=== PATIENT | female | born 1960 | race Two or more races ===

== ENCOUNTER 2016-08-07 23:20 | Inpatient (IN) | payer MEDICAID ==
[~2016-08-07] VITALS: Ht 160 cm; Wt 39.0 kg
--- NOTE | 2016-08-07 23:31 | NUR ---
PT A/OX4 PT C/O SOB AND DIFFICULTY BREATHING X 1 DAY BUT IS GETTING WORSE TONIGHT, PT IS UNDER GOING CHEMO AND HAS A PICC LINE ON HER RIGHT FOREARM, PT GOT 800CC OF FLUID DRAINED TODAY PER FAMILY PT ON MONITOR EKG DONE, IN ROOM, PT PLACED ADIEL NON REBREATHER PRIOR TO ARRIVAL BY EMS, FAMILY AT BEDSIDE, WILL CONTINUE TO MONITOR.
[2016-08-07] MEDS ORDERED: IV NS 0.9% 250 ML IV ONE (23:33)
[2016-08-07] MEDS ORDERED: IOHEXOL-350 100 ML VIAL IV ONE (23:33)
[2016-08-07] MEDS ORDERED: MULT1TAB73 PO (23:44)
[2016-08-07] MEDS ORDERED: DOCU-25 PO (23:44)
[2016-08-07] MEDS ORDERED: HYDR-3326 PO (23:44)
[2016-08-07] MEDS ORDERED: ZINC220C6 PO (23:44)
[2016-08-07] MEDS ORDERED: AMIN30LI27 PO (23:44)
[2016-08-07] MEDS ORDERED: IPRA0.2S49 NEB (23:44)
[2016-08-07] MEDS ORDERED: BISA-79 PR (23:44)
[2016-08-07] MEDS ORDERED: BIFI460C PO (23:44)
[2016-08-07] MEDS ORDERED: ASCO500T9 PO (23:44)
[2016-08-07] MEDS ORDERED: ACET-868 PO (23:44)
[2016-08-07] MEDS ORDERED: ANAS1TAB8 PO (23:44)
[2016-08-07] MEDS ORDERED: TRAM50TA2 PO (23:44)
[2016-08-07] MEDS ORDERED: ONDA8TAB6 PO (23:44)
[2016-08-07] MEDS ORDERED: MELA1TAB9 PO (23:44)
[2016-08-07] MEDS ORDERED: ENOX40DI SUBCUT (23:44)
[2016-08-07] MEDS ORDERED: BUSP5TAB3 PO (23:44)
[2016-08-07] MEDS ORDERED: METO-295 PO (23:44)
[2016-08-07] MEDS ORDERED: ALBU2.5V38 NEB (23:44)
[2016-08-07] MEDS ORDERED: MAGN400O6 PO (23:44)
[2016-08-07] MEDS ORDERED: POLY17PO4 PO (23:44)
[2016-08-07 23:53] LABS: BASOPHILS % (AUTO) 0.1 % (0.0-2.0); EOSINOPHILS % (AUTO) 0.1 % (0.0-6.0); HEMATOCRIT 35 % (33-45); HEMOGLOBIN 11.9 g/dL (11.5-14.8); LYMPHOCYTES # (AUTO) 0.3 /CMM (0.8-4.8); LYMPHOCYTES % (AUTO) 5.9 % (20.0-44.0); MEAN CORPUSCULAR HEMOGLOBIN 30 PG (26.0-33.0); MEAN CORPUSCULAR HGB CONC 34 g/dl (31.0-36.0); MEAN CORPUSCULAR VOLUME 87 fL (82-100); MONOCYTES # (AUTO) 0.2 /CMM (0.1-1.30); MONOCYTES % (AUTO) 3.8 % (2.0-12.0); NEUTROPHILS # (AUTO) 4.9 /CMM (1.8-8.9); NEUTROPHILS % (AUTO) 90.1 % (43.0-81.0); PLATELET COUNT (AUTO) 516 /CMM (150-450); RDW COEFFICIENT OF VARIATION 18.5 (11.5-15.0); RED BLOOD CELL COUNT(AUTO) 3.97 MIL/uL (4.0-5.2); WHITE BLOOD COUNT (AUTO) 5.5 K/uL (4.3-11.0)
[2016-08-08] VITALS (74 sets, daily range): BP systolic 75–188; BP diastolic 42–99
[2016-08-08 00:08] LABS: INR 0.91 (0.87-1.13); PROTHROMBIN TIME 9.7 SECS (9.5-12.7)
[2016-08-08 00:15] LABS: ALANINE AMINOTRANSFERASE 100 U/L (12-78); ALBUMIN 2.2 g/dL (3.4-5.0); ALKALINE PHOSPHATASE 473 U/L (46-116); ASPARTATE AMINOTRANSFERASE 61 U/L (15-37); B-TYPE NATRIURETIC PEPTIDE 158 PG/ML (0-125); BILIRUBIN,DIRECT 0.1 mg/dL (0.0-0.2); BILIRUBIN,TOTAL 0.2 mg/dL (0.2-1.0); CHLORIDE 94 mmol/L (98-107); CREATININE 0.2 mg/dL (0.6-1.3); GLUCOSE 107 mg/dL (74-106); POTASSIUM 3.9 mmol/L (3.5-5.1); SODIUM SERUM 133 mmol/L (136-145); TOTAL PROTEIN, SERUM 5.9 g/dL (6.4-8.2); UREA NITROGEN, BLOOD 14 mg/dL (7-18)
[2016-08-08 00:16] LABS: TROPONIN I < 0.017 ng/mL (0.00-0.056)
[2016-08-08 00:21] LABS: CALCIUM, SERUM 8.2 mg/dL (8.5-10.1); CARBON DIOXIDE 41 mmol/L (21-32)
[2016-08-08 00:49] LABS: BAND % (MANUAL) 6 % (0.0-5.0); LYMPHOCYTES % (MANUAL) 6 % (16-48); METAMYELOCYTES % 1 % (0-0); MONOCYTES % (MANUAL) 6 % (0-11.0); NEUTROPHILS % (MANUAL) 81 (42-76)
--- NOTE | 2016-08-08 01:15 | NUR ---
PT BACK FROM CT, PT STATES HER BREATHING IS GETTING WORSE, FAMILY AT BEDSIDE RT AT BEDSIDE AND MD AT BEDSIDE, BREATHING TREAMENT STARTED, WILL CONTINUE TO MONITOR.
--- NOTE | 2016-08-08 01:23 | NUR ---
CALLED RT FOR ABG.
--- NOTE | 2016-08-08 01:32 | NUR ---
JERMAIN DF CHART REVIEWED PT FOR JOSIAH ADMISSION.
--- NOTE | 2016-08-08 01:43 | NUR ---
PT STARTED ON BI-PAP PER MD ESPINOZA ORDERS WILL CONTINUE TO MONITOR.
[2016-08-08 01:46] LABS: ABG OXYGEN SATURATION 93.7 % (92.0-98.5); ABG PCO2 86.5 mmHg (35.0-45.0); ABG PH 7.261 (7.350-7.450); ABG PO2 80.8 mmHg (75.0-100.0); AaDO2 545.7 mmHg; COHb 1.1 % (0.5-1.5); MetHb 0.6 % (0.0-1.5); O2Hb 92.1 % (94.0-97.0); SITE, ABG Left Radial; VENT MODE, BG NRB
--- NOTE | 2016-08-08 01:48 | NUR ---
GIVEN BED BY WINE CONSULTANT. ICU 252
--- NOTE | 2016-08-08 02:14 | NUR ---
PANEL CALLED. DR. PAUL TO BE PAGED.
[2016-08-08] MEDS ORDERED: IV SET PRIMARY PUMP SET 1 EA INFUS.SET MC ONE ×6 (02:19→16:37)
[2016-08-08] MEDS ORDERED: PROPOFOL 100 ML IV ONE (02:19)
--- NOTE | 2016-08-08 02:30 | NUR ---
PT NOT ABLE TO TOLERATED BI-PAP, MD ESPINOZA INTUBATED PT, 22AT THE LIP AND 7 CROATIAN USED. RT AT BEDSIDE, WILL CONTINUE TO MONITOR.
[2016-08-08] MEDS ORDERED: IV NS 0.9% 500 ML IV ONE (02:44)
[2016-08-08] MEDS ORDERED: NOREPINEPHRINE 4 MG/4 ML AMPUL IV ONE ×2 (02:44→03:53)
[2016-08-08] MEDS ORDERED: IV SET PRIMARY 1 EA INFUS.SET MC ONE (02:48)
[2016-08-08] MEDS ORDERED: PIPERACILLIN /TAZOBACTAM 3.375 G VIAL IV ONE (02:49)
[2016-08-08] MEDS ORDERED: HYDROCODONE/APAP 5/325MG 1 EACH TABLET PO PRN (03:00)
[2016-08-08] MEDS ORDERED: ALBUTEROL FS 2.5 MG/0.5 ML VIAL.NEB NEB PRN (03:00)
[2016-08-08] MEDS ORDERED: IPRATROPIUM NEB FS 0.5 MG/2.5 ML AMPUL.NEB NEB PRN (03:00)
[2016-08-08] MEDS ORDERED: PIPERACILLIN /TAZOBACTAM 3.375 G in IV D5W 50 ML IV ONE (03:00)
[2016-08-08] MEDS ORDERED: ONDANSETRON HCL/PF 4 MG/2 ML VIAL IVP PRN (03:00)
[2016-08-08] MEDS ORDERED: MAGNESIUM HYDROXIDE 30 ML UDC PO PRN (03:00)
[2016-08-08] MEDS ORDERED: ZOLPIDEM TARTRATE 5 MG TABLET PO PRN (03:00)
[2016-08-08] MEDS ORDERED: NOREPINEPHRINE 8 MG in IV D5W 500 ML IV PRN ×2 (03:00→08:30)
[2016-08-08] MEDS ORDERED: ETOMIDATE 2 MG/ML VIAL IV ONE ×2 (03:00→03:30)
[2016-08-08] MEDS ORDERED: FEE EMEERGENCY 1 MIN EA MC ONE (03:00)
[2016-08-08] MEDS ORDERED: ENOXAPARIN SODIUM 40 MG/0.4 ML DISP.SYRIN SQ SCH (03:00)
[2016-08-08] MEDS ORDERED: ACETAMINOPHEN 325 MG TABLET PO PRN (03:00)
[2016-08-08] MEDS ORDERED: MAG HYDROX/AL HYDROX/SIMETH 30 ML UDC PO PRN (03:00)
[2016-08-08] MEDS ORDERED: VANCOMYCIN 1 GM in IV D5W 250 ML IV ONE (03:00)
[2016-08-08] MEDS ORDERED: LEVOFLOXACIN 750 MG /D5W 150ML 750 MG in PREMIX 1 EA IV SCH (03:00)
[2016-08-08] MEDS ORDERED: VANCOMYCIN 1 GM VIAL ONE (03:08)
[2016-08-08] MEDS ORDERED: IV D5W 250 ML IV ONE (03:09)
[2016-08-08] MEDS ORDERED: PROPOFOL 100 ML IV PRN (03:30)
[2016-08-08] MEDS ORDERED: ROCURONIUM BROMIDE 50 MG/5 ML IV ONE (03:30)
[2016-08-08] MEDS ORDERED: ENOXAPARIN SODIUM 40 MG/0.4 ML DISP.SYRIN SQ ONE (03:33)
[2016-08-08] MEDS ORDERED: IV NS 0.9% 1,000 ML ONE ×2 (03:41→07:47)
[2016-08-08] MEDS: IV NS 0.9% 1,000 ML IV PRN ×2 (03:46→11:58)
[2016-08-08] MEDS ORDERED: IV D5W 500 ML IV ONE (03:53)
[2016-08-08] MEDS ORDERED: LEVOFLOXACIN 750 MG /D5W 150ML 150 ML IV ONE (04:03)
[2016-08-08 04:26] LABS: ABG BASE EXCESS 9.5 mmol/L; ABG PCO2 60.7 mmHg (35.0-45.0); ABG PH 7.394 (7.350-7.450); ABG PO2 335.5 mmHg (75.0-100.0); AaDO2 316.8 mmHg; COHb 0.6 % (0.5-1.5); MetHb 0.9 % (0.0-1.5); O2Hb 97.5 % (94.0-97.0); PEEP,BG 5 cm H2O; SITE, ABG Right Radial
--- NOTE | 2016-08-08 04:30 | NUR ---
ABG DONE. RN NOTIFIED. TITRATED FIO2 TO 50%.
[2016-08-08 04:43] LABS: EOSINOPHILS % (AUTO) 0.1 % (0.0-6.0); HEMATOCRIT 30 % (33-45); HEMOGLOBIN 10.2 g/dL (11.5-14.8); LYMPHOCYTES # (AUTO) 0.2 /CMM (0.8-4.8); LYMPHOCYTES % (AUTO) 5.2 % (20.0-44.0); MEAN CORPUSCULAR HEMOGLOBIN 30 PG (26.0-33.0); MEAN CORPUSCULAR HGB CONC 34 g/dl (31.0-36.0); MEAN CORPUSCULAR VOLUME 87 fL (82-100); MONOCYTES # (AUTO) 0.2 /CMM (0.1-1.30); MONOCYTES % (AUTO) 4.2 % (2.0-12.0); NEUTROPHILS # (AUTO) 3.5 /CMM (1.8-8.9); NEUTROPHILS % (AUTO) 90.5 % (43.0-81.0); PLATELET COUNT (AUTO) 415 /CMM (150-450); RDW COEFFICIENT OF VARIATION 19.1 (11.5-15.0); RED BLOOD CELL COUNT(AUTO) 3.39 MIL/uL (4.0-5.2); WHITE BLOOD COUNT (AUTO) 3.9 K/uL (4.3-11.0)
[2016-08-08 05:05] LABS: ALBUMIN 1.7 g/dL (3.4-5.0); BILIRUBIN,TOTAL 0.3 mg/dL (0.2-1.0); CREATININE 0.4 mg/dL (0.6-1.3); MAGNESIUM 1.9 mg/dL (1.8-2.4); PHOSPHORUS 3.5 mg/dL (2.5-4.9); POTASSIUM 4.2 mmol/L (3.5-5.1); TOTAL PROTEIN, SERUM 4.8 g/dL (6.4-8.2)
[2016-08-08] MEDS ORDERED: MORPHINE SULFATE INJ 2 MG/ML DISP.SYRIN ONE (05:13)
[2016-08-08] MEDS: MORPHINE SULFATE INJ 2 MG/ML DISP.SYRIN IV PRN ×4 (05:17→23:19)
--- NOTE | 2016-08-08 05:38 | NUR ---
HISTORY FACULTY MEMBER. ADMISSION. RECEIVED THE PT FROM ER VIA [facility]. ORALLY INTUBATED. ETT 7,LIP 23CMS,AC 16,TV 532XHA5 50%, PEEP 5. SAT 98%PERFUSIONIST SHOWING S TACH. IV RT UPPER ARM PICC LINE IVF NS 100ML/H, LEVOPHED 15MCG/MIN,DIPRIVAN 40MCG/KG/M,IN FC PATENT. ORALLY OGT INSERTED. WOUND PICTURE TAKEN. AFEBRILE. ATTACHED TO THE CHART. LT CHEST DRAINAGE INTACT. TURN AND REPOSITION Q2H. WILL CONTINUE TO MONITOR VITALS..S/P INTUBATION XRAY DONE. ABG DONE. FIO2 DECREASED.
[2016-08-08] MEDS: PIPERACILLIN /TAZOBACTAM 3.375 G in IV D5W 100 ML IV SCH ×2 (06:00→12:01)
--- NOTE | 2016-08-08 06:27 | NUR ---
ZOSYN NOT GIVEN 0600. ER GIVEN AT 0300
[2016-08-08] MEDS: IPRATROPIUM NEB FS 0.5 MG/2.5 ML AMPUL.NEB NEB SCH ×3 (07:35→20:18)
[2016-08-08] MEDS: ALBUTEROL FS 2.5 MG/0.5 ML VIAL.NEB NEB SCH ×3 (07:35→20:18)
[2016-08-08] MEDS: ACETYLCYSTEINE 20% SOLN 800 MG/4 ML VIAL NEB SCH ×3 (07:35→23:04)
--- NOTE | 2016-08-08 07:40 | NUR ---
ICU/RN PT IS INTUBATED ON THE VENT AC MODE,FIO2-50%. SAT O2-99%.SEDATED ON DIPRIVAN.LOW BP.LEVOPHED IS ON.PT HAS T-100.8. NOTIFIED.OG TUBE CLAMPED./C DRAINING WITH YELLOW URINE.PT HAS LEFT SIDE PLEURX DRAIN CLAMPED.RIGHT UPPER ARM PICC LINE.LEFT BREAST WOUND COVERED WITH DRESSING.SACRUM WOUND.PT HAS METASTATIC BREAST CA.S/P CHEMOTHERAPY 08/07/16.LABS REVIEW. NOTIFIED.NEW ORDERS RECEIVED,
[2016-08-08] MEDS ORDERED: IV NS 0.9% 1,000 ML BAG IV ONE (07:45)
[2016-08-08] MEDS ORDERED: FEE PK DOSING 1 MIN EA MC ONE (08:00)
--- NOTE | 2016-08-08 08:15 | NUR ---
WOUND CARE CONSULT PATIENT UNSTABLE FOR FULL SKIN ASSESSMENT AT THIS TIME PER NURSING STAFF. SCHOOL SERVICES OFFICER REVIEWED NURSING DOCUMENTATION AND PHOTO IMAGES OF THE SKIN ISSUES PRESENT ON ADMIT. WILL MAKE TREATMENT RECOMMENDATIONS BASED ON PHOTO IMAGES. FOR THE REDNESS TO THE BILATERAL HEELS, CONTINUE OFF LOADING AND HEEL FLOATING. FOR THE PERINEAL/VAGINAL AND INNER THIGH REDNESS WITH MOISTURE ASSOCIATED EXCORIATIONS, RECOMMEND Z GUARD MOISTURE BARRIER OINTMENT CURRENTLY ORDERED, FOR THE LEFT CHEST SURGICAL WOUND RECOMMEND CLEANSE WITH NS, PAT DRY, COVER WITH XEROFORM GUAZE, THEN ABD PAD, NO TAPE ON THE SKIN, WITH DAILY DRESSING CHANGES, FOR THE SACRAL ULCER NOTED TO BE POA AND TO BE AT LEAST PARTIAL THICKNESS STAGE 2 (MAY BE STAGE 3) CLEANSE WITH NS PAT DRY, APPLY HYDROGEL TO THE WOUND, APPLY Z GUARD TO THE OUTSIDE EDGES FOR THE EXCORIATIONS, COVER WITH MEPILEX FOAM DRESSING DAILY AND PRN SOILING. RECOMMEND TURNING SCHED Q 2 HOURS PATIENT CONDITION PERMITS, 1ST STEP LOW AIRLOSS MATTRESS HAS BEEN ORDERED FOR TREATMENT AND SKIN MANAGEMENT. PATIENT CURRENTLY INTUBATED AND ON PRESSORS FOR BP SUPPORT PER ICU NURSE. PATIENT WITH CURRENT SIOBHAN AT 12.
[2016-08-08] MEDS: PROPOFOL 100 ML IV PRN ×3 (09:03→23:32)
[2016-08-08] MEDS: Z GUARD REMEDY 2 OZ OINT TP PRN (09:03)
[2016-08-08] MEDS: PANTOPRAZOLE 40 MG VIAL IV SCH (09:04)
[2016-08-08] MEDS: methylPREDNISolone SOD SUCC 40 MG/ML VIAL IV SCH ×3 (09:04→16:48)
--- NOTE | 2016-08-08 09:40 | NUR ---
ICU/RN DUE MEDS ARE GIVEN ORDERED.1,400 NS BOLUS GIVEN ORDERED.PT PLACED ON KCI MATRASS.FAMILY AT BEDSIDE.
[2016-08-08] MEDS ORDERED: ANAS1TAB8 PO (09:52)
[2016-08-08] MEDS: HYDROGEL DRESSING 90 GM TUBE TP PRN (11:59)
[2016-08-08] MEDS: HYDROGEL DRESSING 90 GM TUBE TP SCH (12:00)
[2016-08-08] MEDS ORDERED: SECONDARY IV SET 1 EA INFUS.SET MC ONE ×2 (12:14→14:24)
[2016-08-08 13:08] LABS: THYROID STIMULATING HORMONE 0.968 uIU/mL (0.358-3.74)
[2016-08-08 13:09] LABS: INR 1.04 (0.87-1.13); PROTHROMBIN TIME 11.1 SECS (9.5-12.7)
[2016-08-08 13:10] LABS: D-DIMER 0.51 mg/L(FEU (0.17-0.50)
[2016-08-08] MEDS: NOREPINEPHRINE 16 MG in IV D5W 500 ML IV PRN (14:17)
[2016-08-08] MEDS: VANCOMYCIN 0.75 GM in IV D5W 250 ML IV SCH (15:16)
--- NOTE | 2016-08-08 16:26 | NUR ---
ICU/FIELD MARKETING COORDINATOR DRESSING DONE ORDERED.SUCTION PROVIDED.REPOSITION OR COMFORT.
[2016-08-08] MEDS ORDERED: SODIUM POLYSTYRENE SULFONATE 15 G/60 ML BOTTLE ONE (16:35)
[2016-08-08] MEDS: PIPERACILLIN /TAZOBACTAM 3.375 G in IV D5W 50 ML IV SCH ×2 (16:49→23:20)
--- NOTE | 2016-08-08 18:30 | NUR ---
ICU/IRRIGATION FLUME LAYER DRESSING DONE ORDERED.PT IS SEDATED ON PROPOFOL.PM CARE PROVIDED.SUCTION PROVIDED.DUE MEDS ARE GIVEN ORDERED,REPOSITION FOR COMFORT.
[2016-08-08] MEDS: ENOXAPARIN SODIUM 40 MG/0.4 ML DISP.SYRIN SQ SCH (20:41)
--- NOTE | 2016-08-08 20:59 | NUR ---
WHOLESALE DIAMOND BROKER DF RECEIVED PT TO ROOM#253 PT INTUBATED TOLERATING CURRENT VENT SETTINGS. PT SEDATED ON DIPRIVAN AT 45MCG.PT RESPONDS TO LIGHT TACTILE STIMULI WITHDRAWS TO STIMULI.WEAKNESS NOTED TO BUE/BLE.SINUS TACHYCARDIA ON MONITOR RATE OF 112BPM BP OF 104/56 PT ON LEVOPHED GTT FOR BP SUPPORT GOAL TO MAINTAIN SBP ABOVE 90.OGT CLAMPED PLACEMENT VERIFIED.AUSTIN CATH WITH ADEQUATE URINE OUTPUT. PT WITH LEFT SIDED PLEURX DRAIN.PLEURX WITH 100ML DRAINAGE STRAW COLORED.PLEURX CLAMPED AFTER DRAINAGE. PT WITH BREATH SOUNDS RHONCHI THROUGHOUT DIMINISHED IN LOWER BASES. WOUNDS NOTED TO LEFT BREAST/SACRUM/DIDIER AREA, COVERED WITH DRESSINGS C/D/I.
--- NOTE | 2016-08-08 23:47 | NUR ---
ENGINEERING MECHANIC DF PT WITH FACIAL GRIMACING,MOANING ASSUME PAIN PRESENT FLACC SCORE OF 2 I ADMIN MORPHINE 2MG IVP.DIPRIVAN GTT @45MCG. LEVOPHED GTT @8MCG WITH A BP OF 101/80
[2016-08-09] VITALS (88 sets, daily range): BP systolic 80–156; BP diastolic 44–111
[2016-08-09] MEDS: ALBUTEROL FS 2.5 MG/0.5 ML VIAL.NEB NEB SCH ×4 (01:42→19:38)
[2016-08-09] MEDS: IPRATROPIUM NEB FS 0.5 MG/2.5 ML AMPUL.NEB NEB SCH ×4 (01:42→19:38)
[2016-08-09 01:57] LABS: APPEARANCE,URINE CLEAR (CLEAR); BILIRUBIN,URINE NEGATIVE (NEGATIVE); BLOOD, URINE 1+ Ery/uL (NEGATIVE); COLOR,URINE YELLOW (YELLOW); KETONES,URINE NEGATIVE (NEGATIVE); LEUKOCYTE ESTERASE ,URINE NEGATIVE (NEGATIVE); NITRITE, URINE NEGATIVE (NEGATIVE); PROTEIN,URINE NEGATIVE (NEGATIVE); UGLUCOSE NEGATIVE (NEGATIVE); UROBILINOGEN,URINE 0.2 EU/dL (0.2)
[2016-08-09 02:02] LABS: BACTERIA,URINE None seen /HPF (None Seen); RBC,URINE 0-2 /HPF (0-2); SQUAMOUS EPITHELIAL CELL,UR Rare /HPF (None Seen); WBC,URINE NONE SEEN /HPF (0-3)
[2016-08-09] MEDS: MORPHINE SULFATE INJ 2 MG/ML DISP.SYRIN IV PRN ×4 (02:28→17:21)
--- NOTE | 2016-08-09 02:30 | NUR ---
BRIM AND CROWN PRESSER DF PT PREMEDICATED PRIOR TO AM CARE.PT WITH METASTATIC CA PT EXPERIENCES PAIN WHEN MOVED AEB FACIAL GRIMACING,VS CHANGES. DIPRIVAN INCREASED TO 50MCG IV.
[2016-08-09] MEDS: VANCOMYCIN 0.75 GM in IV D5W 250 ML IV SCH ×3 (02:32→14:59)
--- NOTE | 2016-08-09 03:59 | NUR ---
TICKET PRINTER DF PT WITH EDEMA TO RIGHT HAND WITH RIGHT INDEX FINGER RING UNABLE TO REMOVE.CIRCULATION INTACT,SKIN COLOR WNL.RING MAY REQUIRE REMOVAL WITH CUTTING TOOL IN AM. [facility] ORDERS FOLLOWS: Instructions <08/09/16 FOLLOW UP REGARDING PT,S RIGHT INDEX FINGER PT HAS GOLD COLORED, BAND/RING PT WITH EDEMA UNABLE TO REMOVE BAND.CIRCULATION REMAINS IN, TACT.RING MAY REQUIRE CUTTING TO REMOVE IN AM.CONSULT WITH PT,S , AND OBTAIN RING CUTTING TOOL.>
[2016-08-09] MEDS: PROPOFOL 100 ML IV PRN ×3 (04:03→17:20)
--- NOTE | 2016-08-09 04:18 | NUR ---
BOAT LOADER HELPER DF PT BP OF 156/111 DECREASED LEVOPHED FROM 10MCG TO 7MCG.
[2016-08-09 04:58] LABS: CALCIUM, SERUM 8.5 mg/dL (8.5-10.1); CREATININE 0.3 mg/dL (0.6-1.3)
[2016-08-09] MEDS: PIPERACILLIN /TAZOBACTAM 3.375 G in IV D5W 50 ML IV SCH ×4 (05:06→23:34)
[2016-08-09 08:09] LABS: IMMUNOGLOBULIN A, SERUM 44 mg/dL (87-352); IMMUNOGLOBULIN G, SERUM 243 mg/dL (700-1600); IMMUNOGLOBULIN M, SERUM 38 mg/dL (26-217)
[2016-08-09] MEDS: PANTOPRAZOLE 40 MG VIAL IV SCH (08:21)
[2016-08-09] MEDS: methylPREDNISolone SOD SUCC 40 MG/ML VIAL IV SCH ×3 (08:22→17:21)
[2016-08-09] MEDS: HYDROGEL DRESSING 90 GM TUBE TP SCH (08:22)
--- NOTE | 2016-08-09 08:22 | NUR ---
ICU/RN - Notes Pt medicated with Morphine 2mg IVP as ordered, to ensure comfort as pt is intubated. Pt noted with facial grimacing and expresses that ET tube is uncomfortable. Will reassess pain accordingly.
[2016-08-09] MEDS: ACETYLCYSTEINE 20% SOLN 800 MG/4 ML VIAL NEB SCH ×3 (08:33→23:41)
--- NOTE | 2016-08-09 09:30 | NUR ---
ICU/RN - Notes Sedation vacation done per protocol. Pt alert and oriented, able to move all four extremities purposefully. Pt placed back on sedation as no plan for vent weaning, and pt states would like to be under sedation while being intubated.
[2016-08-09] MEDS ORDERED: IV SET PRIMARY PUMP SET 1 EA INFUS.SET MC ONE (09:46)
[2016-08-09 10:15] LABS: ABG BASE EXCESS 8.8 mmol/L; ABG OXYGEN SATURATION 98.1 % (92.0-98.5); ABG PCO2 50.4 mmHg (35.0-45.0); ABG PH 7.448 (7.350-7.450); ABG PO2 138.4 mmHg (75.0-100.0); AaDO2 125.1 mmHg; COHb 0.4 % (0.5-1.5); MetHb 0.9 % (0.0-1.5); O2Hb 96.8 % (94.0-97.0); PEEP,BG 5 cm H2O; SITE, ABG Right Radial; VT, ABG 450 mL
[2016-08-09] MEDS: IV NS 0.9% 1,000 ML IV PRN (14:01)
[2016-08-09] MEDS: NOREPINEPHRINE 16 MG in IV D5W 500 ML IV PRN (14:02)
[2016-08-09] MEDS: VANCOMYCIN 1 GM in IV D5W 250 ML IV SCH (15:00)
[2016-08-09] MEDS ORDERED: FIBERSOURCE HN 1,000 ML BOTTLE NG PRN (15:00)
[2016-08-09] MEDS: NUTREN PULMONARY 1,000 ML BAG GT PRN (17:21)
[2016-08-09] MEDS: MUPIROCIN OINT 2% 22 GM TUBE SCH ×3 (18:30→21:45)
[2016-08-09] MEDS: ENOXAPARIN SODIUM 40 MG/0.4 ML DISP.SYRIN SQ SCH (21:41)
[2016-08-10] VITALS (101 sets, daily range): BP systolic 78–143; BP diastolic 42–106
[2016-08-10] MEDS ORDERED: IV SET PRIMARY PUMP SET 1 EA INFUS.SET MC ONE ×3 (00:30→23:07)
--- NOTE | 2016-08-10 01:30 | NUR ---
HVAC SERVICE TECHNICIAN DF BP OF 143/92 LEVOPHED DECREASED TO 3MCG.PT MORE AWAKE SPONTANEOUS EYE OPENING,MOVING BUE/BLE LEFT ARM WEAKER THAN RIGHT ARM 2ND LEFT BREAST WOUND/CA.PT C/O PAIN I MEDICATED HER WITH MORPHINE 2MG IVP.PT COOPERATIVE FOLLOWING SIMPLE COMMANDS.VSS.NAD NOTED.TOLERATING TUBE FEEDING @30ML/HR.
[2016-08-10] MEDS: MORPHINE SULFATE INJ 2 MG/ML DISP.SYRIN IV PRN ×3 (01:39→14:04)
[2016-08-10] MEDS: PROPOFOL 100 ML IV PRN ×4 (01:59→19:31)
[2016-08-10] MEDS: ALBUTEROL FS 2.5 MG/0.5 ML VIAL.NEB NEB SCH ×4 (02:08→19:34)
[2016-08-10] MEDS: IPRATROPIUM NEB FS 0.5 MG/2.5 ML AMPUL.NEB NEB SCH ×4 (02:08→19:34)
[2016-08-10] MEDS: VANCOMYCIN 1 GM in IV D5W 250 ML IV SCH ×2 (03:45→14:04)
[2016-08-10] MEDS: IV NS 0.9% 1,000 ML IV PRN ×2 (05:04→19:33)
[2016-08-10 05:05] LABS: CALCIUM, SERUM 8.3 mg/dL (8.5-10.1); CREATININE 0.3 mg/dL (0.6-1.3); POTASSIUM 3.5 mmol/L (3.5-5.1)
[2016-08-10 05:23] LABS: HEMATOCRIT 27 % (33-45); HEMOGLOBIN 9.2 g/dL (11.5-14.8); LYMPHOCYTES # (AUTO) 0.9 /CMM (0.8-4.8); LYMPHOCYTES % (AUTO) 10.3 % (20.0-44.0); MEAN CORPUSCULAR HEMOGLOBIN 30 PG (26.0-33.0); MEAN CORPUSCULAR HGB CONC 34 g/dl (31.0-36.0); MEAN CORPUSCULAR VOLUME 88 fL (82-100); MONOCYTES # (AUTO) 0.3 /CMM (0.1-1.30); NEUTROPHILS # (AUTO) 7.8 /CMM (1.8-8.9); NEUTROPHILS % (AUTO) 86.7 % (43.0-81.0); PLATELET COUNT (AUTO) 410 /CMM (150-450); RDW COEFFICIENT OF VARIATION 19.4 (11.5-15.0); RED BLOOD CELL COUNT(AUTO) 3.07 MIL/uL (4.0-5.2)
[2016-08-10] MEDS: PIPERACILLIN /TAZOBACTAM 3.375 G in IV D5W 50 ML IV SCH ×4 (06:10→23:14)
[2016-08-10] MEDS: ACETYLCYSTEINE 20% SOLN 800 MG/4 ML VIAL NEB SCH ×3 (08:22→23:44)
[2016-08-10] MEDS: methylPREDNISolone SOD SUCC 40 MG/ML VIAL IV SCH ×3 (08:23→16:00)
[2016-08-10] MEDS: PANTOPRAZOLE 40 MG VIAL IV SCH (08:23)
[2016-08-10] MEDS: HYDROGEL DRESSING 90 GM TUBE TP SCH (08:24)
[2016-08-10] MEDS: MUPIROCIN OINT 2% 22 GM TUBE SCH ×2 (08:25→20:58)
--- NOTE | 2016-08-10 09:00 | NUR ---
ICU/RN - Notes Sedation vacation done per protocol. Pt alert and oriented, follows commands, able to move all four extremities purposefully. Pt placed back on sedation as no there is no plan for vent weaning, and pt states would like to be under sedation while being intubated.
[2016-08-10 09:34] LABS: ABG BASE EXCESS 8.7 mmol/L; ABG OXYGEN SATURATION 97.9 % (92.0-98.5); ABG PCO2 43.7 mmHg (35.0-45.0); ABG PH 7.494 (7.350-7.450); ABG PO2 141.1 mmHg (75.0-100.0); AaDO2 93.8 mmHg; COHb 0.5 % (0.5-1.5); MetHb 0.6 % (0.0-1.5); O2Hb 96.8 % (94.0-97.0); SITE, ABG Right Radial
--- NOTE | 2016-08-10 11:45 | NUR ---
ICU/RN - Notes Left pleural fluid (via PleurX bag) sent to pathology.
--- NOTE | 2016-08-10 12:25 | NUR ---
ICU/RN - Notes Respiratory specimen collected by RT Dwyer and sent to lab.
[2016-08-10] MEDS: NOREPINEPHRINE 16 MG in IV D5W 500 ML IV PRN (14:04)
[2016-08-10] MEDS ORDERED: SECONDARY IV SET 1 EA INFUS.SET MC ONE (14:10)
[2016-08-10] MEDS: LORAZEPAM INJ 2 MG/ML VIAL IV PRN (16:00)
[2016-08-10] MEDS: NUTREN PULMONARY 1,000 ML BAG GT PRN (16:54)
--- NOTE | 2016-08-10 17:35 | NUR ---
ICU/RN - Notes Pt manifests with anxiousness and tearful, requesting for something to calm her down. Diprivan titrated up to 50mcg/kg/min, but pt still unable to relax. Administered Ativan 0.5mg IVP as ordered for PRN anxiety. Will continue to monitor.
--- NOTE | 2016-08-10 20:42 | NUR ---
received pt from day shift, calmly sedated on diprivan at 50mcg, follows commands, SR, on the vent, lungs congested, non pitting edema all extremities, OG to feeding tolerates well, f/c good urine output, L pleurx draining, v/s stable, no pain, pt turned and repositioned.
[2016-08-10] MEDS: ENOXAPARIN SODIUM 40 MG/0.4 ML DISP.SYRIN SQ SCH (21:00)
[2016-08-11] VITALS (95 sets, daily range): BP systolic 70–158; BP diastolic 28–115
--- NOTE | 2016-08-11 | NUR ---
pt is resting in the bed, calmly sedated on diprivan at 50mcg, receiving levo at 1mcg, v/s stable, no pain, pt turned and repositioned q2hrs.
[2016-08-11] MEDS: ALBUTEROL FS 2.5 MG/0.5 ML VIAL.NEB NEB SCH (01:29)
[2016-08-11] MEDS: IPRATROPIUM NEB FS 0.5 MG/2.5 ML AMPUL.NEB NEB SCH (01:30)
[2016-08-11] MEDS: VANCOMYCIN 1 GM in IV D5W 250 ML IV SCH ×2 (02:12→15:25)
--- NOTE | 2016-08-11 04:15 | NUR ---
pt is resting in the bed, no acute distress overnight, sedated on diprivan at 50mcg, receiving levo at 1mcg, off of feeding since midnight for the procedure in AM, good urine output, v/s stable, no pain, pt cleaned, changed and repositioned q2hrs.
[2016-08-11] MEDS: MORPHINE SULFATE INJ 2 MG/ML DISP.SYRIN IV PRN ×2 (04:35→10:16)
[2016-08-11 05:07] LABS: CREATININE 0.2 mg/dL (0.6-1.3); POTASSIUM 3.3 mmol/L (3.5-5.1)
[2016-08-11] MEDS: PIPERACILLIN /TAZOBACTAM 3.375 G in IV D5W 50 ML IV SCH ×3 (05:29→17:06)
[2016-08-11] MEDS: PROPOFOL 100 ML IV PRN ×2 (06:23→12:18)
[2016-08-11] MEDS: ACETYLCYSTEINE 20% SOLN 800 MG/4 ML VIAL NEB SCH ×3 (07:24→23:15)
[2016-08-11] MEDS ORDERED: IV SET PRIMARY PUMP SET 1 EA INFUS.SET MC ONE ×2 (08:00→23:14)
--- NOTE | 2016-08-11 08:00 | NUR ---
ICU/RN PT IS INTUBATED ON THE VENT AC MODE.FIO2-40%.V/S STABLE,AFEBRILE.NO PAIN REPORTED AT THIS TIME.PT IS ON 50 MCG OF PROPOFOL,BUT AWAKE ,ALERT AND FOLLOWS COMMAND.PICC LINE ON THE RIGHT UPPER ARM IV INFUSING ORDERED.LEVOPHED STOP.F/C DRAINING WITH MEGAN URINE.WOUNDS COVERED WITH DRESSING.SUCTION PROVIDED.REPOSITION FOR COMFORT.LABS REVIEW. NOTIFIED.NEW ORDERS RECEIVED.
[2016-08-11 08:08] LABS: *SPE ALBUMIN 2.1 g/dL (2.9-4.4); *SPE ALPHA-1-GLOBULIN 0.2 g/dL (0.0-0.4); *SPE BETA GLOBULIN 0.6 g/dL (0.7-1.3); *SPE GLOBULIN, TOTAL 2.1 g/dL (2.2-3.9); *SPE M-SPIKE Not Observed g/dL (Not Observed); *SPE PROTEIN TOTAL 4.2 g/dL (6.0-8.5); *SPEGAMMA GLOBULIN 0.2 g/dL (0.4-1.8)
[2016-08-11] MEDS: methylPREDNISolone SOD SUCC 40 MG/ML VIAL IV SCH ×3 (08:12→17:05)
[2016-08-11] MEDS: IV NS 0.9% 1,000 ML IV PRN (08:12)
[2016-08-11] MEDS: PANTOPRAZOLE 40 MG VIAL IV SCH (08:12)
[2016-08-11] MEDS: FERROUS SULFATE (325 MG) 325 MG/TAB TABLET PO SCH ×2 (08:12→17:05)
[2016-08-11] MEDS: MUPIROCIN OINT 2% 22 GM TUBE SCH ×2 (08:13→21:43)
[2016-08-11] MEDS: Z GUARD REMEDY 2 OZ OINT TP PRN (08:14)
[2016-08-11] MEDS: HYDROGEL DRESSING 90 GM TUBE TP SCH (08:14)
--- NOTE | 2016-08-11 09:00 | NUR ---
ICU/RN DUE MEDS ARE GIVEN ORDERED.FAMILY AT BEDSIDE.
[2016-08-11] MEDS: POTASSIUM CL. PREMIX PERIPHER. 50 ML IV SCH ×2 (10:16→12:18)
[2016-08-11 13:12] LABS: INR 0.92 (0.87-1.13); PROTHROMBIN TIME 9.8 SECS (9.5-12.7)
[2016-08-11] MEDS: Potassium Chloride 40 MEQ in IV NS 0.9% 1,000 ML IV PRN (13:19)
[2016-08-11] MEDS ORDERED: IV NS 0.9% 250 ML BAG IV ONE (15:00)
[2016-08-11] MEDS ORDERED: MORPHINE SULFATE INJ 2 MG/ML DISP.SYRIN IV ONE (15:00)
--- NOTE | 2016-08-11 16:00 | NUR ---
ICU/RN PM CARE PROVIDED.WOUND DRESSING DONE ORDERED.PT S/P BRONCHOSCOPY TOLERATED WELL.CONTINUE MONITORING
--- NOTE | 2016-08-11 16:23 | NUR ---
RT BRONCH PERFORMED BY DR GUEVARA Addendum: 08/11/16 at 1623 by LISA CRESPO RT Amended: Links added.
[2016-08-11] MEDS: NUTREN PULMONARY 1,000 ML BAG GT PRN (17:05)
[2016-08-11] MEDS: NOREPINEPHRINE 16 MG in IV D5W 500 ML IV PRN (18:55)
--- NOTE | 2016-08-11 21:39 | NUR ---
PT INTUBATED ON VENT. PT IS AWAKE ALERT FOLLOWS COMMANDS. NO RESP DISTRESS NOTED. PT TOLERATING VENT SETTINGS. SX'D FOR SML AMT OF THIN WHITE SECRETIONS. VENT ALARMS SET AND AUDIBLE. SARINA BAIRD AT [facility]. WILL CONTINUE TO MONITOR. Addendum: 08/11/16 at 2141 by GUTIERREZ BHATIA RT Amended: Links added.
[2016-08-11] MEDS: ENOXAPARIN SODIUM 40 MG/0.4 ML DISP.SYRIN SQ SCH (21:44)
[2016-08-12] VITALS (84 sets, daily range): BP systolic 80–154; BP diastolic 36–107
[2016-08-12] MEDS: PIPERACILLIN /TAZOBACTAM 3.375 G in IV D5W 50 ML IV SCH ×4 (00:33→17:14)
[2016-08-12] MEDS: PROPOFOL 100 ML IV PRN ×4 (00:46→22:41)
[2016-08-12] MEDS: Potassium Chloride 40 MEQ in IV NS 0.9% 1,000 ML IV PRN ×2 (00:47→15:20)
[2016-08-12] MEDS: VANCOMYCIN 1 GM in IV D5W 250 ML IV SCH (02:28)
[2016-08-12 05:30] LABS: CREATININE 0.3 mg/dL (0.6-1.3); POTASSIUM 3.8 mmol/L (3.5-5.1)
[2016-08-12] MEDS: ACETYLCYSTEINE 20% SOLN 800 MG/4 ML VIAL NEB SCH ×3 (07:15→23:05)
--- NOTE | 2016-08-12 08:17 | NUR ---
PT. PLACED ON SIMV MODE ON VENT AND WEANING STARTED . ALARMS ARE ADJUSTED AND PT. MARIALUISA. WELL. CONTINUE FOR MONITORING AND AMBU BAG REMAIN AT THE BEDSIDE. Addendum: 08/12/16 at 0818 by POLINA GLORIA RT Amended: Links added.
[2016-08-12] MEDS: FERROUS SULFATE (325 MG) 325 MG/TAB TABLET PO SCH ×2 (08:19→16:48)
[2016-08-12] MEDS: MUPIROCIN OINT 2% 22 GM TUBE SCH ×2 (08:19→20:53)
[2016-08-12] MEDS: PANTOPRAZOLE 40 MG VIAL IV SCH (08:19)
[2016-08-12] MEDS: methylPREDNISolone SOD SUCC 40 MG/ML VIAL IV SCH ×3 (08:19→16:48)
[2016-08-12] MEDS: HYDROGEL DRESSING 90 GM TUBE TP SCH (08:20)
[2016-08-12 09:34] LABS: ABG BASE EXCESS 3.6 mmol/L; ABG OXYGEN SATURATION 94.8 % (92.0-98.5); ABG PCO2 54.9 mmHg (35.0-45.0); ABG PH 7.356 (7.350-7.450); AaDO2 138.1 mmHg; MetHb 0.9 % (0.0-1.5); PEEP,BG 5 cm H2O; SITE, ABG Left Radial; VENT MODE, BG SIM PS 12
--- NOTE | 2016-08-12 09:59 | NUR ---
HORSE RANCHER NOTE 0720: Received patient on Diprivan, patient awake, calm and cooperative, A/Ox3. With ETT to vent, tolerated settings at this time. With OGT intact, feeding tolerated, no residuals noted. With Cabrera cath intact, noted with minimal, yellow urine drained to BSD. With RENO PICC intact, on on Levo @ 1mcg, will titrate as ordered. 0800: Turned off Diprivan and explained re: weaning process, verbalized understanding. 0820: RT placed on SIMV mode. 0900: S/E by Dr. Hubbard, no specimen from bronch sent from yesterday, aware. 0915: S/E by Dr. Randle, made aware for the POC. at bedside, verbalized understanding re: POC. 45: ABG done, aware, with order to do another ABG in an hour, made RT aware.
--- NOTE | 2016-08-12 10:45 | NUR ---
HIGHWAY MAINTENANCE TECHNICIAN NOTE Noted with increased WOB, RR 38-40, Dr. Randle aware. Placed patient back on AC mode and Diprivan @ 40. Cleaned patient, noted with BM.
--- NOTE | 2016-08-12 12:20 | NUR ---
RESEARCH NURSE PRACTITIONER NOTE Patient back from CT, patient tolerated transfer. VSS at this time. Patient resting.
[2016-08-12] MEDS ORDERED: IV SET PRIMARY PUMP SET 1 EA INFUS.SET MC ONE ×2 (15:15→22:36)
--- NOTE | 2016-08-12 15:45 | NUR ---
BRICK OFF BEARER NOTE S/E by Femi HOISTING PILE DRIVING ENGINEER, spoke with Dr. Randle, aware for the plan of right chest tube, Dr. Randle called Dr. Peterson.
[2016-08-12] MEDS: VANCOMYCIN 0.75 GM in IV D5W 250 ML IV SCH ×2 (16:19→22:40)
[2016-08-12] MEDS: PROSOURCE / PROSTAT (PYXIS) 30 ML UDC GT SCH (16:20)
--- NOTE | 2016-08-12 19:30 | NUR ---
RN INITIAL NOTES RECEIVED PT AWAKE ON BED, WAS AT BEDSIDE. A/O X3, ABLE TO WRITE ON PAPER FOR COMMUNICATION; ON DIPRIVAN DRIP 35MCG/KG/MIN FOR LIGHT SEDATION. ON VENT AC 16, TV 450, 40% FIO2, PEEP 5, ETT 7.0/23@LIP, SATURATING WELL. CURRENTLY SR ON THE MONITOR, HR 70'S. [place] CATH INTACT. LEFT CHEST PLEURAX NOTED WITH SEROUS DRAINAGE. ON OGT FEEDING OF NUTREN @ 30MLS/HR, NO RESIDUALS, TOLERATING WELL. RIGHT UPPER ARM PICC FLUSHED AND PATENT, NO S/S OF INFILTRATION/INFECTION, DRESSING CDI. BED LOW AND LOCKED, SIDERAILS UP, CALL LIGHT WITHIN REACH. WILL MONITOR
[2016-08-12] MEDS: ENOXAPARIN SODIUM 40 MG/0.4 ML DISP.SYRIN SQ SCH (20:52)
--- NOTE | 2016-08-12 20:55 | NUR ---
RN NOTES HELD THE SCHEDULED ENOXAPARIN 40MG SQ FOR 2100 BECAUSE PATIENT MIGHT HAVE A POSSIBLE RIGHT LUNG CHEST TUBE PLACEMENT TOMORROW WITH DR. BARNARD
[2016-08-12] MEDS ORDERED: SECONDARY IV SET 1 EA INFUS.SET MC ONE (22:40)
[2016-08-13] VITALS (57 sets, daily range): BP systolic 79–168; BP diastolic 35–112
[2016-08-13] MEDS ORDERED: SECONDARY IV SET 1 EA INFUS.SET MC ONE (00:37)
[2016-08-13] MEDS ORDERED: IV SET PRIMARY PUMP SET 1 EA INFUS.SET MC ONE ×4 (00:37→20:00)
[2016-08-13] MEDS: PIPERACILLIN /TAZOBACTAM 3.375 G in IV D5W 50 ML IV SCH ×5 (00:44→23:20)
[2016-08-13] MEDS: Potassium Chloride 40 MEQ in IV NS 0.9% 1,000 ML IV PRN ×2 (00:44→14:51)
[2016-08-13 04:41] LABS: BASOPHILS % (AUTO) 0.2 % (0.0-2.0); HEMATOCRIT 25 % (33-45); HEMOGLOBIN 8.5 g/dL (11.5-14.8); LYMPHOCYTES # (AUTO) 0.6 /CMM (0.8-4.8); LYMPHOCYTES % (AUTO) 7.3 % (20.0-44.0); MEAN CORPUSCULAR HEMOGLOBIN 30 PG (26.0-33.0); MEAN CORPUSCULAR HGB CONC 34 g/dl (31.0-36.0); MEAN CORPUSCULAR VOLUME 88 fL (82-100); MONOCYTES # (AUTO) 0.3 /CMM (0.1-1.30); NEUTROPHILS # (AUTO) 7.8 /CMM (1.8-8.9); NEUTROPHILS % (AUTO) 89.5 % (43.0-81.0); PLATELET COUNT (AUTO) 307 /CMM (150-450); RDW COEFFICIENT OF VARIATION 19.2 (11.5-15.0); RED BLOOD CELL COUNT(AUTO) 2.84 MIL/uL (4.0-5.2); WHITE BLOOD COUNT (AUTO) 8.8 K/uL (4.3-11.0)
[2016-08-13 04:56] LABS: CALCIUM, SERUM 7.9 mg/dL (8.5-10.1); CREATININE 0.2 mg/dL (0.6-1.3); POTASSIUM 4.1 mmol/L (3.5-5.1)
--- NOTE | 2016-08-13 06:30 | NUR ---
RN CLOSING NOTES PT REMAINS STABLE OF THE MOMENT. ALL DUE MEDS GIVEN, AM CARE PROVIDED. WILL ENDORSE CONTINUITY OF CARE TO AM RN
[2016-08-13] MEDS: VANCOMYCIN 0.75 GM in IV D5W 250 ML IV SCH ×3 (06:36→22:05)
--- NOTE | 2016-08-13 06:50 | NUR ---
RN NOTES DR BARNARD IN THE UNIT TO ASSESS THE PATIENT FOR THE NEED FOR RIGHT CHEST TUBE INSERTION. NOTIFIED THE MD THAT WILL BE HERE AT 8AM TO SIGN FOR THE CONSENT. WILL ALSO NOTIFY AM RN
--- NOTE | 2016-08-13 07:10 | NUR ---
ICU INITIAL NOTES RECEIVED REPORT FROM PM RN, PT IS AWAKE, A/O X3, ABLE TO MAKE NEEDS KNOWN, WRITES ON PAPER FOR COMMUNICATION, PT IS ON BEDSIDE MONITOR SHOWING SR IN 80'S, NO C/O OF CHEST PAIN OR DISCOMFORT AT THIS TIME, PT HAS RENO PICC, RUNNING DIPRIVAN @35MCG/MIN, K+ CHLORIDE 40MEQ NS@100ML/HR,C/D/I/PATENT, FLUSHING WELL, NO S/S OF INFECTION/ INFILTRATION NOTED AT THIS TIME, PT IS ON [facility] VENT SETTINGS AC 16, TV 450, 40% FIO2, PEEP 5, ETT 7.0/23@LIP, SATURATING WELL, NO RESP.DISTRESS OR SOB NOTED AT THIS TIME, PT HAS F/C DRAINING WELL TO GRAVITY, LEFT CHEST PLEURAX NOTED WITH SEROUS DRAINAGE. PT HAS OGT FEEDING NUTREN @ 30MLS/HR, NO RESIDUALS NOTED, TOLERATING WELL. ALL SAFETY MEASURES IN PLACE AT ALL TIMES, CALL LIGHT WITHIN EASY REACH, ISOLATION PRECAUTIONS OBSERVED AT ALL TIMES, ALL NEEDS MET AT THIS TIME, WILL MONITOR PT CLOSELY FOR CHANGES
[2016-08-13] MEDS: PROPOFOL 100 ML IV PRN ×3 (07:16→20:07)
[2016-08-13] MEDS: ACETYLCYSTEINE 20% SOLN 800 MG/4 ML VIAL NEB SCH ×3 (07:44→22:37)
--- NOTE | 2016-08-13 09:00 | NUR ---
SEDATION VACATION: DIPRIVAN STOPPED, PT IS AWAKE, ALERT, ABLE TO FOLLOW COMMANDS, ABLE TO MOVE ALL EXTREMITIES, USES PEN AND PAPER TO COMMUNICATE, DIPRIVAN TURNED BACK ON @ 35MCG/MIN FOR COMFORT, AT BEDSIDE
[2016-08-13] MEDS: PROSOURCE / PROSTAT (PYXIS) 30 ML UDC GT SCH ×2 (09:30→18:09)
[2016-08-13] MEDS: FERROUS SULFATE (325 MG) 325 MG/TAB TABLET PO SCH ×2 (09:30→18:09)
[2016-08-13] MEDS: PANTOPRAZOLE 40 MG VIAL IV SCH (09:30)
[2016-08-13] MEDS: methylPREDNISolone SOD SUCC 40 MG/ML VIAL IV SCH ×3 (09:30→18:09)
[2016-08-13] MEDS: MUPIROCIN OINT 2% 22 GM TUBE SCH ×2 (09:31→20:10)
[2016-08-13] MEDS: HYDROGEL DRESSING 90 GM TUBE TP SCH (09:31)
[2016-08-13] MEDS: Z GUARD REMEDY 2 OZ OINT TP PRN (09:31)
--- NOTE | 2016-08-13 11:08 | NUR ---
ICU NOTES EXPRESSED TO ME THAT HE WANTS PT TRANSFER TO [facility] WHERE HE HAS A ER DOCTOR THERE, NOTIFIED CASE MANAGEMENT AND MD, WORKING ON TRANSFERRING PT ONCE MEDICALLY STABLE
--- NOTE | 2016-08-13 12:17 | NUR ---
ICU NOTES ATTAINED CONSENT FROM LOLITA TO RIGHT LUNG CHEST TUBE PLACEMENT, ALL QUESTIONS AND CONCERNS ANSWERED, MATT PAL AT BEDSIDE, LIFT ELECTRICIAN AWARE OF ALL LABS AND RESULTS, ALL NEW ORDERS ACK AND CARRIED OUT.
[2016-08-13] MEDS: NUTREN PULMONARY 1,000 ML BAG GT PRN (15:45)
[2016-08-13] MEDS ORDERED: MORPHINE SULFATE INJ 4 MG/ML DISP.SYRIN ONE (16:09)
[2016-08-13] MEDS ORDERED: MORPHINE SULFATE INJ 4 MG/ML DISP.SYRIN IV PRN (16:30)
--- NOTE | 2016-08-13 16:30 | NUR ---
ICU NOTES AT BEDSIDE, PT PREPPED FOR CHEST TUBE, ORDERED MORPHINE 4 MG IVP ONCE, ADMINISTERED THE MEDICATION, PT TOLERATE WELL, CHEST TUBE INSERTED, VVS, PT STATES EASIER TO BREATHE, CXR ORDERED, PT CLEAN AND DRY, ATTACHED TO CONT. SUCTION, 2L BLOOD FLUID DRAINAGE
--- NOTE | 2016-08-13 19:00 | NUR ---
ICU NOTES PAGED DR. BARNARD REGARDING CXR RESULTS, RETURNED CALL AND WAS NOTIFIED OF CXR RESULTS, INFORM HIM PT HAS 30% PNEUMOTHORAX, MD AWARE AND NOTIFIED STAFF NO FURTHER ACTION IS REQUIRE AND CLOSELY MONITOR PT
--- NOTE | 2016-08-13 19:30 | NUR ---
ICU NOTES CHEST TUBE FLUID COLLECT AND SENT TO LAB
[2016-08-13] MEDS: ENOXAPARIN SODIUM 40 MG/0.4 ML DISP.SYRIN SQ SCH (20:07)
[2016-08-14] VITALS (44 sets, daily range): BP systolic 88–141; BP diastolic 42–79
--- NOTE | 2016-08-14 02:00 | NUR ---
X RAY TECHNICIAN : BED BATH GIVEN , SKIN CARE DONE , LOTION APPLIED AND PT TOLERATED WELL. NO BM , CT DRESSING REINFORCED . WOUND CARE DONE.
--- NOTE | 2016-08-14 03:15 | NUR ---
REPORT GIVEN TO MIKAYLA FOR CONTINUATION OF CARE.
[2016-08-14] MEDS: PROPOFOL 100 ML IV PRN (04:22)
[2016-08-14 04:43] LABS: BASOPHILS # (AUTO) 0.2 /CMM (0.0-0.2); BASOPHILS % (AUTO) 1.5 % (0.0-2.0); EOSINOPHILS % (AUTO) 0.1 % (0.0-6.0); HEMATOCRIT 28 % (33-45); HEMOGLOBIN 9.4 g/dL (11.5-14.8); LYMPHOCYTES # (AUTO) 0.6 /CMM (0.8-4.8); LYMPHOCYTES % (AUTO) 6.7 % (20.0-44.0); MEAN CORPUSCULAR HEMOGLOBIN 30 PG (26.0-33.0); MEAN CORPUSCULAR HGB CONC 34 g/dl (31.0-36.0); MEAN CORPUSCULAR VOLUME 88 fL (82-100); MONOCYTES # (AUTO) 0.3 /CMM (0.1-1.30); MONOCYTES % (AUTO) 3.1 % (2.0-12.0); NEUTROPHILS # (AUTO) 8.6 /CMM (1.8-8.9); NEUTROPHILS % (AUTO) 88.6 % (43.0-81.0); PLATELET COUNT (AUTO) 327 /CMM (150-450); RDW COEFFICIENT OF VARIATION 18.9 (11.5-15.0); RED BLOOD CELL COUNT(AUTO) 3.16 MIL/uL (4.0-5.2); WHITE BLOOD COUNT (AUTO) 9.7 K/uL (4.3-11.0)
[2016-08-14 04:57] LABS: CALCIUM, SERUM 7.7 mg/dL (8.5-10.1); CREATININE 0.2 mg/dL (0.6-1.3); POTASSIUM 4.2 mmol/L (3.5-5.1)
[2016-08-14] MEDS: PIPERACILLIN /TAZOBACTAM 3.375 G in IV D5W 50 ML IV SCH ×4 (05:41→23:25)
[2016-08-14] MEDS: Potassium Chloride 40 MEQ in IV NS 0.9% 1,000 ML IV PRN ×2 (05:56→18:21)
[2016-08-14] MEDS: VANCOMYCIN 0.75 GM in IV D5W 250 ML IV SCH ×3 (06:23→23:25)
[2016-08-14] MEDS ORDERED: IV SET PRIMARY PUMP SET 1 EA INFUS.SET MC ONE (07:59)
[2016-08-14] MEDS: PANTOPRAZOLE 40 MG VIAL IV SCH (08:05)
[2016-08-14] MEDS: methylPREDNISolone SOD SUCC 40 MG/ML VIAL IV SCH ×3 (08:05→16:01)
[2016-08-14] MEDS: PROSOURCE / PROSTAT (PYXIS) 30 ML UDC GT SCH ×2 (08:05→16:02)
[2016-08-14] MEDS: FERROUS SULFATE (325 MG) 325 MG/TAB TABLET PO SCH ×2 (08:05→16:01)
[2016-08-14] MEDS: HYDROGEL DRESSING 90 GM TUBE TP SCH (08:06)
[2016-08-14] MEDS: ACETYLCYSTEINE 20% SOLN 800 MG/4 ML VIAL NEB SCH (08:08)
[2016-08-14] MEDS: MUPIROCIN OINT 2% 22 GM TUBE SCH ×2 (08:09→22:06)
--- NOTE | 2016-08-14 09:45 | NUR ---
ICU/RN - Notes Diprivan titrated down, for SIMV weaning trials. Pt awake and alert, able to move all extremities purposefully with left arm weakness. Explained procedure to pt, nods head understanding.
[2016-08-14 11:43] LABS: ABG OXYGEN SATURATION 97.3 % (92.0-98.5); ABG PCO2 48.3 mmHg (35.0-45.0); ABG PH 7.364 (7.350-7.450); ABG PO2 111.3 mmHg (75.0-100.0); AaDO2 118.4 mmHg; COHb 0.8 % (0.5-1.5); O2Hb 95.5 % (94.0-97.0); PEEP,BG 5 cm H2O; SITE, ABG Right Radial
--- NOTE | 2016-08-14 12:00 | NUR ---
PT EXTUBATED PER DR. GUEVARA ORDERS. PT IS AWAKE AND ALERT, FOLLOWING COMMANDS, ABG DONE. EXTUBATION DONE BY POLICY AND PROCEDURES. NO RESP. DISTRESS NOTED POST EXTUBATION, NO STRIDOR PRESENT. PLACED ON 6LPM NASAL CANNULA. WILL TITRATE FIO2 TO KEEP SATS WNL.
--- NOTE | 2016-08-14 12:05 | NUR ---
ICU/RN - Notes Pt extubated by RT as ordered by Dr Randle. Tolerated procedure well. Placed on nasal cannula O2 6lpm, tolerating well. No s/s of respiratory distress or increase work of breathing.
--- NOTE | 2016-08-14 14:45 | NUR ---
ICU/RN - Notes Pt tolerated pureed diet well, no s/s of aspiration noted.
--- NOTE | 2016-08-14 17:41 | NUR ---
ICU/RN - Notes Report called to JERMAIN Florence for continuity of care.
--- NOTE | 2016-08-14 18:38 | NUR ---
TRANSIT WORKER NOTE 1809: Received patient from ICU to ICUov, A/Ox3. on 2LPM of O2 via NC tolerated, SP extubation today. No any respiratory distress noted. With right chest tube intact, connected to 20mmHg continuous suction draining serosanguineous drainage and left chest pleurex draining clear yellow drainage. No c/o discomfort at this time. Accompanied by . RENO PICC intact, IVF infusing well. Cabrera catheter intact, noted with yellow urine drained to BSD. SR 90's on the monitor. 1837: No any significant changes noted at this time. Kept clean, warm and dry. Needs attended. Still eating dinner at this time. Will endorse to next shift.
--- NOTE | 2016-08-14 19:15 | NUR ---
BRUSH CLEARING LABORER NOTE RECEIVED PATIENT AWAKE AND ORIENTED X4. ON 4LPM OF O2 VIA NC, RESPIRATION IS EVEN AND UNLABORED, NO DISTRESS NOTED, DENIES ANY DISCOMFORT AND SOB. MINIMAL TO NO SECRETIONS NOTED, POST EXTUBATION EARLIER IN THE DAY, WILL MONITOR CLOSELY. SR AT 90s. WITH LEFT PLEUREX, INTACT AND DRAINING WELL WITH SEROUS DRAINAGE, NO LEAKAGE NOTED. R CHEST TUBE IN PLACE, ON CONTINUOUS SUCTION AT 20mmHg WITH SEROSANGUINEOUS DRAINAGE. F/C INTACT, CLEAR YELLOW URINE. RENO PICC LINE FLUSHED AND PATENT, WITH GOOD BLOOD RETURN, IVF OF NS + 40mEq KCL AT 100CC/HR INFUSING ORDERED. PATIENT'S NEEDS ANTICIPATED AND MET. SAFETY AND COMFORT ENSURED. BED IN LOW AND LOCKED POSITIN. HOB ELEVATED TOLERATED. WILL MONITOR CLOSELY.
[2016-08-14] MEDS: ENOXAPARIN SODIUM 40 MG/0.4 ML DISP.SYRIN SQ SCH (22:07)
--- NOTE | 2016-08-14 23:00 | NUR ---
RN NOTES PATIENT CARE TRANSFERRED TO JERMAIN MORALES. ENDORSED ACCORDINGLY. PATIENT WITH NO ACUTE DISTRESS. NEEDS ANTICIPATED AND MET. CALL LIGHT IN REACH.
--- NOTE | 2016-08-14 23:49 | NUR ---
ICU OVERFLOW RN NOTES RECEIVED PT IN STABLE STATE. ON O2 VIA NC AT 4 LPM, MARIALUISA WELL. TELE READS SR IN 80-90s. RUNNING NS WITH KCL AT 100 ML/HR. PICC AT [facility], DRESSING INTACT. [place] CATH IN PLACE. LEFT UPPER CHEST TUBE, DRAINING WELL. RIGHT CHEST PLEURX DRAINING WELL. ON KCI, HOB ELEVATED, TURNED AND REPOSITIONED. PT DENIES PAIN AT THIS TIME.
[2016-08-15] VITALS (18 sets, daily range): BP systolic 110–151; BP diastolic 63–95
[2016-08-15] MEDS: PIPERACILLIN /TAZOBACTAM 3.375 G in IV D5W 50 ML IV SCH ×3 (05:58→17:38)
[2016-08-15] MEDS: Potassium Chloride 40 MEQ in IV NS 0.9% 1,000 ML IV PRN ×2 (05:58→14:50)
[2016-08-15] MEDS: VANCOMYCIN 0.75 GM in IV D5W 250 ML IV SCH ×3 (06:04→22:00)
[2016-08-15 07:15] LABS: BASOPHILS % (AUTO) 0.2 % (0.0-2.0); EOSINOPHILS % (AUTO) 0.1 % (0.0-6.0); HEMATOCRIT 31 % (33-45); HEMOGLOBIN 10.6 g/dL (11.5-14.8); LYMPHOCYTES # (AUTO) 0.8 /CMM (0.8-4.8); LYMPHOCYTES % (AUTO) 5.7 % (20.0-44.0); MEAN CORPUSCULAR HEMOGLOBIN 30 PG (26.0-33.0); MEAN CORPUSCULAR HGB CONC 34 g/dl (31.0-36.0); MEAN CORPUSCULAR VOLUME 89 fL (82-100); MONOCYTES # (AUTO) 0.7 /CMM (0.1-1.30); MONOCYTES % (AUTO) 4.9 % (2.0-12.0); NEUTROPHILS # (AUTO) 12.8 /CMM (1.8-8.9); NEUTROPHILS % (AUTO) 89.1 % (43.0-81.0); PLATELET COUNT (AUTO) 429 /CMM (150-450); RED BLOOD CELL COUNT(AUTO) 3.49 MIL/uL (4.0-5.2); WHITE BLOOD COUNT (AUTO) 14.3 K/uL (4.3-11.0)
[2016-08-15 07:17] LABS: CREATININE 0.2 mg/dL (0.6-1.3); POTASSIUM 4.2 mmol/L (3.5-5.1)
--- NOTE | 2016-08-15 07:47 | NUR ---
INITIAL ICU OVERFLOW NOTE RCVD PT AWAKE AND ALERT, SHOWING NO S/O DISTRESS OR C/O PAIN, SR ON TELE, GOOD SATURATION ON 4L VIA NC. [place]IN DRAINING YELLOW URINE. LEFT CHEST PLEURX DRAINING PALE YELLOW FLUID. RIGHT CHEST TUBE DRESSING C/D/I DRAINING SEROSANGUINEOUS FLUID. RENO PICC C/D/I/PATENT. NO S/O INFILTRATION OR PHLEBITIS OBSERVED. IVF INFUSING. WILL CONTINUE TO MONITOR PT FOR SAFETY AND COMFORT. CALL LIGHT WITHIN REACH. BED IN LOW AND LOCKED POSITION.
--- NOTE | 2016-08-15 08:11 | NUR ---
MUSIC PROMOTER NOTE PER PT'S REQUEST DIET CHANGED TO PUREED, PT'S AT BEDSIDE MULTIPLE QUESTIONS ANSWERED.
[2016-08-15] MEDS: PROSOURCE / PROSTAT (PYXIS) 30 ML UDC GT SCH ×2 (08:21→17:38)
[2016-08-15] MEDS: methylPREDNISolone SOD SUCC 40 MG/ML VIAL IV SCH ×3 (08:21→17:38)
[2016-08-15] MEDS: FERROUS SULFATE (325 MG) 325 MG/TAB TABLET PO SCH ×2 (08:21→17:38)
[2016-08-15] MEDS: PANTOPRAZOLE 40 MG VIAL IV SCH (08:21)
[2016-08-15] MEDS: HYDROGEL DRESSING 90 GM TUBE TP SCH (08:23)
[2016-08-15] MEDS: MUPIROCIN OINT 2% 22 GM TUBE SCH ×2 (08:23→21:50)
--- NOTE | 2016-08-15 14:28 | NUR ---
ICU OVERFLOW NOTE SPOKE TO VICTOR HUGO GUTIERREZ INFORMED HIM OF PT'S WISH TO PURSUE PLEURX ON THE RIGHT SIDE, HE STATES THAT DR. BARNARD IS AWARE AND MIGHT PERFORM PROCEDURE TOMORROW. HE CONTACTED DR. ROSE REGARDING + C.DIF RESULTS. WILL CONTINUE TO MONITOR PT.
[2016-08-15] MEDS: BOOST PLUS FOOD-CHOCLATE 237 ML BOX PO SCH ×2 (14:50→17:37)
[2016-08-15] MEDS: Z GUARD REMEDY 2 OZ OINT TP PRN (17:37)
[2016-08-15] MEDS: VANCOMYCIN HCL 125 MG/2.5 ML ORAL.SUSP PO SCH (17:38)
--- NOTE | 2016-08-15 19:12 | NUR ---
ENDING JOSIAH RN NOTE PT REMAINS STABLE, ALL NEEDS MET, FAMILY AT BEDSIDE. PT'S CARE ENDORSED TO GEOLOGY TECHNICIAN RN FOR CONTINUITY OF CARE.
--- NOTE | 2016-08-15 19:20 | NUR ---
RN INITIAL NOTES RECEIVED PATIENT WITH AT BEDSIDE, ANSWERED QUESTIONS, UPDATED WITH PLAN OF CARE. PATIENT AT 4LPM OF O2 VIA NC, RESPIRATION IS EVEN AND UNLABORED, MINIMAL SOB NOTED WITH EXERTION AND WITH TALKING, RELIEVED WITH REST, SATURATING WELL. SR ON TELE, HR AT 90s. RENO PICC LINE FLUSHED AND PATENT, IVF INFUSING ORDERED. WITH F/C, INTACT AND DRAINING WELL WITH CLEAR, YELLOW URINE. L CHEST PLEURX IN PLACE, DRAINING WITH PALE YELLOW FLUID. R CHEST TUBE IN PLACE, DRAINING WITH SEROSANGUINEOUS FLUID. PATIENT'S NEEDS ANTICIPATED AND MET. SAFETY AND COMFORT ENSURED. BED IN LOW AND LOCKED POSITION. CALL LIGHT IN REACH. WILL MONITOR CLOSELY.
--- NOTE | 2016-08-15 20:15 | NUR ---
RN NOTES DR. VINCENT AT BEDSIDE, INQUIRED WITH MD REGARDING THE PATIENT'S MEDICATION PART OF THE CHEMOTHERAPY REGIMEN. ORDER MADE, NOTED AND CARRIED OUT.
[2016-08-15] MEDS: ENOXAPARIN SODIUM 40 MG/0.4 ML DISP.SYRIN SQ SCH (21:49)
[2016-08-16] VITALS (8 sets, daily range): BP systolic 121–153; BP diastolic 75–87
[2016-08-16] MEDS ORDERED: VANCOMYCIN HCL 125 MG/2.5 ML ORAL.SUSP ONE (00:25)
[2016-08-16] MEDS ORDERED: SECONDARY IV SET 1 EA INFUS.SET MC ONE ×2 (00:29→12:48)
[2016-08-16] MEDS: VANCOMYCIN HCL 125 MG/2.5 ML ORAL.SUSP PO SCH ×5 (00:34→23:20)
[2016-08-16] MEDS: PIPERACILLIN /TAZOBACTAM 3.375 G in IV D5W 50 ML IV SCH ×5 (00:34→23:17)
[2016-08-16] MEDS: Potassium Chloride 40 MEQ in IV NS 0.9% 1,000 ML IV PRN ×2 (05:53→21:58)
[2016-08-16] MEDS ORDERED: IV SET PRIMARY PUMP SET 1 EA INFUS.SET MC ONE (05:53)
[2016-08-16] MEDS: VANCOMYCIN 0.75 GM in IV D5W 250 ML IV SCH ×3 (06:26→23:45)
[2016-08-16 06:55] LABS: EOSINOPHILS % (AUTO) 0.1 % (0.0-6.0); HEMATOCRIT 35 % (33-45); HEMOGLOBIN 11.6 g/dL (11.5-14.8); LYMPHOCYTES # (AUTO) 0.9 /CMM (0.8-4.8); LYMPHOCYTES % (AUTO) 7.1 % (20.0-44.0); MEAN CORPUSCULAR HEMOGLOBIN 30 PG (26.0-33.0); MEAN CORPUSCULAR HGB CONC 33 g/dl (31.0-36.0); MEAN CORPUSCULAR VOLUME 90 fL (82-100); MONOCYTES # (AUTO) 0.7 /CMM (0.1-1.30); MONOCYTES % (AUTO) 5.6 % (2.0-12.0); NEUTROPHILS # (AUTO) 11.5 /CMM (1.8-8.9); NEUTROPHILS % (AUTO) 87.2 % (43.0-81.0); PLATELET COUNT (AUTO) 507 /CMM (150-450); RDW COEFFICIENT OF VARIATION 19.3 (11.5-15.0); RED BLOOD CELL COUNT(AUTO) 3.89 MIL/uL (4.0-5.2); WHITE BLOOD COUNT (AUTO) 13.2 K/uL (4.3-11.0)
--- NOTE | 2016-08-16 07:03 | NUR ---
RN CLOSING NOTES PATIENT WITH NO ACUTE CHANGE IN CONDITION OBSERVED OVERNIGHT. PATIENT WITH NO DISTRESS AND SOB. PATIENT'S NEEDS ANTICIPATED AND MET. SAFETY AND COMFORT ENSURED. REASSURANCE PROVIDED NEEDED. F/C INTACT, R CHEST TUBE INTACT AND DRAINING WELL, L PLEURX INTACT AND DRAINING WELL. CALL LIGHT IN REACH. WILL ENDORSE ACCORDINGLY FOR CONTINUITY OF CARE.
[2016-08-16 07:31] LABS: CALCIUM, SERUM 8.1 mg/dL (8.5-10.1); CREATININE 0.2 mg/dL (0.6-1.3); POTASSIUM 4.2 mmol/L (3.5-5.1)
--- NOTE | 2016-08-16 08:00 | NUR ---
TD/RN AM SHIFT INITIAL NOTES RECEIVED PT ASLEEP IN BED, AROUSEABLE, A/O X 4, DENIES ANY SYMPTOMS AT THIS TIME. ON 4L O2 VIA N/C SATURATING @ 100%, LUNG SOUNDS DIMINISHED. ON TELE WITH SINUS RHYTHM, HR 99. WITHIN ON GOING IV INFUSION OF ZOSYN, PICC LINE PATENT WITH NO S/S OF INFECTION. [place] CATHETER NOTED WITH CLEAR YELLOW URINE. LEFT LUNG PLEURX DRAIN WITH CLEAR YELLOW OUTPUT. RIGHT LUNG CHEST TUBE NOTED WITH SEROSANGUINEOUS OUTPUT. PT IS COMFORTABLE AT THIS TIME. SCHEDULED AM MEDS TO BE GIVEN. CL WITHIN REACHED, SAFETY MAINTAINED AND ISOLATION OBSERVED. ON GOING MONITORING.
[2016-08-16] MEDS: BOOST PLUS FOOD-CHOCLATE 237 ML BOX PO SCH ×3 (08:31→16:38)
[2016-08-16] MEDS: PROSOURCE / PROSTAT (PYXIS) 30 ML UDC GT SCH ×2 (08:31→16:38)
[2016-08-16] MEDS: methylPREDNISolone SOD SUCC 40 MG/ML VIAL IV SCH ×3 (08:31→16:38)
[2016-08-16] MEDS: ANASTROZOLE 1 MG TABLET PO SCH (08:32)
[2016-08-16] MEDS: FERROUS SULFATE (325 MG) 325 MG/TAB TABLET PO SCH ×2 (08:32→16:38)
[2016-08-16] MEDS: PANTOPRAZOLE 40 MG VIAL IV SCH (08:32)
[2016-08-16] MEDS: HYDROGEL DRESSING 90 GM TUBE TP SCH (08:33)
[2016-08-16] MEDS: MUPIROCIN OINT 2% 22 GM TUBE SCH ×2 (08:33→22:00)
--- NOTE | 2016-08-16 11:30 | NUR ---
TELE1/RN MD ROUNDS - DR. BOO PT SEEN & EXAMINED BY DR. BOO. PER MD WILL INCREASE DOSAGE OF VANCOMYCIN IV. NOTED.
--- NOTE | 2016-08-16 11:45 | NUR ---
TELE1/RN MD ROUNDS - DR. GUEVARA UPDATED PT'S CONDITION. PT SEEN & EXAMINED BY DR. GUEVARA. PER MD WILL FOLLOW-UP WITH DR. BARNARD FOR POSSIBLE PLACEMENT OF RIGHT LUNG PLEURX ON THURSDAY. NOTED.
[2016-08-16] MEDS: ACIDOPHILUS/BULGARICUS 1 EACH TAB.CHEW PO SCH ×2 (12:59→16:40)
[2016-08-16] MEDS: METRONIDAZOLE 500MG/ NS 100ML 500 MG in PREMIX 1 EA IV SCH ×2 (13:00→21:58)
--- NOTE | 2016-08-16 18:00 | NUR ---
TELE1/RN PM ROUNDS PT IS COMFORTABLE. NO ACUTE CHANGE OF CONDITION. MONITORING CONTINUED.
--- NOTE | 2016-08-16 19:30 | NUR ---
SLAB POLISHER NOTE: PATIENT RESTING IN BED, NO ACUTE DISTRESS NOTED. BREATHING EVEN AND UNLABORED, NO SOB NOTED. [place] CATHETER IN PLACE, EMPTY AT THIS TIME. DRESSING TO LEFT BREAST IN PLACE, CLEAN AND NO BLEEDING/DRAINAGE NOTED. PICC LINE TO RIGHT UPPER ARM IN PLACE. CHEST TUBE TO RIGHT CHEST IN PLACE, DRAINAGE AT 700ML AT THIS TIME. LEFT CHEST PLEUREX IN PLACE, DRAINAGE BAG EMPTY AT THIS TIME. ISOLATION PRECAUTIONS OBSERVED. BED LOCKED AND IN LOWEST POSITION, CALL LIGHT IN REACH. WILL CONTINUE TO MONITOR.
[2016-08-16] MEDS: ENOXAPARIN SODIUM 40 MG/0.4 ML DISP.SYRIN SQ SCH (22:00)
--- NOTE | 2016-08-16 22:00 | NUR ---
PUBLIC HEALTH CLINICAL NURSE SPECIALIST NOTE: PATIENT RESTING IN BED, NO ACUTE DISTRESS NOTE. LEFT PLEURX CATHETER DRAINED 50 ML OF CLEAR DRAINAGE. WILL CONTINUE TO MONITOR.
[2016-08-17 00:05] VITALS: BP 122/77
--- NOTE | 2016-08-17 00:05 | NUR ---
TEAM MANAGER NOTE: PATIENT RESTING IN BED, PATIENT LEFT CHEST PLEURX CATHETER DRAINAGE AT 60ML OF CLEAR YELLOW DRAINAGE. WILL CONTINUE TO MONITOR.
--- NOTE | 2016-08-17 02:05 | NUR ---
TRANSFER TABLE OPERATOR NOTE: PATIENT RESTING IN BED, PATIENT LEFT CHEST PLEURX CATHETER DRAINAGE AT 75 ML OF CLEAR YELLOW DRAINAGE. WILL CONTINUE TO MONITOR.
[2016-08-17 03:31] VITALS: BP 128/75
[2016-08-17] MEDS: LORAZEPAM INJ 2 MG/ML VIAL IV PRN (03:47)
[2016-08-17 04:00] VITALS: BP 128/75
--- NOTE | 2016-08-17 04:05 | NUR ---
REVIEW ENGINEER NOTE: PATIENT ANXIOUS AND CAN'T SLEEP, REQUESTING SOMETHING TO HELP RELAX HER. ATIVAN 0.5MG IV GIVEN PER MD ORDER. PATIENT LEFT CHEST PLEURX CATHETER WITH DRAINAGE AT 100ML OF CLEAR YELLOW URINE. RIGHT CHEST TUBE IN PLACE AT 1000ML, WITH CONT. SUCTION AT 20 MM/HG. WILL CONTINUE TO MONITOR.
[2016-08-17] MEDS: METRONIDAZOLE 500MG/ NS 100ML 500 MG in PREMIX 1 EA IV SCH ×3 (05:23→21:09)
[2016-08-17] MEDS: VANCOMYCIN HCL 125 MG/2.5 ML ORAL.SUSP PO SCH ×3 (05:23→17:18)
[2016-08-17] MEDS: PIPERACILLIN /TAZOBACTAM 3.375 G in IV D5W 50 ML IV SCH ×3 (06:41→17:17)
--- NOTE | 2016-08-17 06:50 | NUR ---
PHARMACEUTICAL ASSISTANT NOTE: PATIENT RESTING IN BED, NO ACUTE DISTRESS NOTED. BREATHING EVEN AND UNLABORED, NO SOB NOTED. [place] CATHETER IN PLACE, DRAINED 750ML OF CLEAR YELLOW URINE. DRESSING TO LEFT BREAST IN PLACE. PICC LINE TO RIGHT UPPER ARM IN PLACE. CHEST TUBE TO RIGHT CHEST IN PLACE, DRAINAGE AT 1000ML AT THIS TIME. LEFT CHEST PLEUREX IN PLACE, DRAINED A TOTAL OF 200ML CLEAR DRAINAGE. ISOLATION PRECAUTIONS OBSERVED. BED LOCKED AND IN LOWEST POSITION, CALL LIGHT IN REACH. WILL ENDORSE TO DAY NURSE TO CONTINUE WITH PLAN OF CARE.
[2016-08-17 07:35] LABS: CALCIUM, SERUM 8.4 mg/dL (8.5-10.1); CREATININE 0.3 mg/dL (0.6-1.3); POTASSIUM 3.9 mmol/L (3.5-5.1)
[2016-08-17 08:06] VITALS: BP 103/71
[2016-08-17] MEDS: VANCOMYCIN 0.75 GM in IV D5W 250 ML IV SCH ×3 (08:54→22:29)
[2016-08-17] MEDS: BOOST PLUS FOOD-CHOCLATE 237 ML BOX PO SCH ×3 (08:57→17:13)
[2016-08-17] MEDS: ACIDOPHILUS/BULGARICUS 1 EACH TAB.CHEW PO SCH ×3 (11:26→16:57)
[2016-08-17] MEDS: FERROUS SULFATE (325 MG) 325 MG/TAB TABLET PO SCH ×2 (11:26→16:57)
[2016-08-17] MEDS: ANASTROZOLE 1 MG TABLET PO SCH (11:27)
[2016-08-17] MEDS: PANTOPRAZOLE 40 MG VIAL IV SCH (11:27)
[2016-08-17] MEDS: methylPREDNISolone SOD SUCC 40 MG/ML VIAL IV SCH ×3 (11:27→16:57)
[2016-08-17] MEDS: MUPIROCIN OINT 2% 22 GM TUBE SCH ×2 (11:28→21:09)
[2016-08-17] MEDS: HYDROGEL DRESSING 90 GM TUBE TP SCH (11:28)
[2016-08-17] MEDS: PROSOURCE / PROSTAT (PYXIS) 30 ML UDC GT SCH ×2 (11:30→17:13)
[2016-08-17 11:54] VITALS: BP 99/67
--- NOTE | 2016-08-17 19:50 | NUR ---
rn initial notes: received report from bibi interiano, pt in bed, awake, a/o x3, on 4l via nc respiration even and unlabored, currently on sinus tach 110, pt denies any chest pain or sob, denies any dizziness or palpitation. pt has tonya picc line infusing with kcl [id number] in 1L ns at 100ml/hr, pt has left che4st pleurx, dressing c/d/i, also pt has right chest tube, dressing c/d/i, no s/s of airleak noted, emergency clamped at bed side. ble offloaded, safety precautions for fall initiated call light in reach will continue to monitor
[2016-08-17 20:00] VITALS: BP 120/74
--- NOTE | 2016-08-17 20:15 | NUR ---
ORDERS: CONTACTED DR DONG REGARDING MEDICATION ORDERS, PER RT IT WOULD BE BENEFICIAL FOR THE PT TO HAVE ATROVENT AND ALBUTEROL TREATMENT AND ALSO MUCOMYST TO [facility] OPEN AIRWAYS AND HELP PT COUGH OUT SECRETIONS, PER MD, ITS OKAY WHATEVER RT RECOMMENDS, GIVE ATROVENT AND ALBUTEROL TX PRN Q4HR AND MUCOMYST Q8HR PRN
[2016-08-17] MEDS ORDERED: ACETYLCYSTEINE 10% SOLN 400 MG/4 ML VIAL NEB PRN (20:30)
[2016-08-17] MEDS ORDERED: ALBUTEROL FS 2.5 MG/0.5 ML VIAL.NEB NEB PRN (20:30)
[2016-08-17] MEDS ORDERED: IPRATROPIUM NEB FS 0.5 MG/2.5 ML AMPUL.NEB NEB PRN (20:30)
[2016-08-17] MEDS: ENOXAPARIN SODIUM 40 MG/0.4 ML DISP.SYRIN SQ SCH (21:12)
[2016-08-17] MEDS: Potassium Chloride 40 MEQ in IV NS 0.9% 1,000 ML IV PRN (22:32)
[2016-08-17] MEDS ORDERED: ACETYLCYSTEINE 10% SOLN 400 MG/4 ML VIAL ONE (23:14)
[2016-08-17] MEDS ORDERED: ALBUTEROL FS 2.5 MG/3 ML VIAL.NEB ONE (23:14)
[2016-08-18] VITALS: BP_SYST 126; BP_DIAS 74; BP_DIAS 84
[2016-08-18] MEDS: PIPERACILLIN /TAZOBACTAM 3.375 G in IV D5W 50 ML IV SCH ×4 (00:17→17:14)
[2016-08-18] MEDS: VANCOMYCIN HCL 125 MG/2.5 ML ORAL.SUSP PO SCH ×4 (00:17→17:15)
[2016-08-18 04:00] VITALS: BP 116/65
[2016-08-18] MEDS: METRONIDAZOLE 500MG/ NS 100ML 500 MG in PREMIX 1 EA IV SCH ×3 (04:10→20:57)
--- NOTE | 2016-08-18 06:00 | NUR ---
DRAINAGE: LEFT CHEST PLEURX TOTAL 400, RIGHT CHEST TUBE TOTAL 175ML
[2016-08-18 06:36] LABS: EOSINOPHILS % (AUTO) 0.1 % (0.0-6.0); HEMATOCRIT 31 % (33-45); HEMOGLOBIN 10.3 g/dL (11.5-14.8); LYMPHOCYTES # (AUTO) 0.4 /CMM (0.8-4.8); LYMPHOCYTES % (AUTO) 3.1 % (20.0-44.0); MEAN CORPUSCULAR HEMOGLOBIN 30 PG (26.0-33.0); MEAN CORPUSCULAR HGB CONC 34 g/dl (31.0-36.0); MEAN CORPUSCULAR VOLUME 90 fL (82-100); MONOCYTES # (AUTO) 0.9 /CMM (0.1-1.30); MONOCYTES % (AUTO) 6.4 % (2.0-12.0); NEUTROPHILS # (AUTO) 12.7 /CMM (1.8-8.9); NEUTROPHILS % (AUTO) 90.4 % (43.0-81.0); PLATELET COUNT (AUTO) 503 /CMM (150-450); RDW COEFFICIENT OF VARIATION 19.5 (11.5-15.0); RED BLOOD CELL COUNT(AUTO) 3.43 MIL/uL (4.0-5.2)
[2016-08-18] MEDS: VANCOMYCIN 0.75 GM in IV D5W 250 ML IV SCH ×3 (06:39→23:27)
--- NOTE | 2016-08-18 06:45 | NUR ---
rn closing notes: pt in bed, awake, remains a/o x4, on 4l via nc, denies any sob, remains sinus tach ranging above 106, denies any palpitation head ache or dizziness. left plurx drainage remains in placed, right chest tube remains in placed, both dressing remqains c/d/i, no s/s of leak noted, emergency clamped posted in the wall. tonya picc pilne remains patent and flushing well, infusing with [id number] in 1L ns at 100ml/hr, tolerating well. vs remains stable, needs attended, will endorse to day rn for flash.
[2016-08-18 06:57] LABS: CALCIUM, SERUM 7.8 mg/dL (8.5-10.1); CREATININE 0.2 mg/dL (0.6-1.3)
--- NOTE | 2016-08-18 07:30 | NUR ---
initial note received patient resting in bed a+ox3 verbalizes needs. breathing even and unlabored. 5/10 L back pain, denying meds at this time, repositioned, provided alleviation. L pleurex and R chest tube patent, no complications at insertion site, draining cloudy yellow fluid. RENO picc line patent, no complications. L CHEST DRESSING CDI. f/c patent, non-leaking. BL heels elevated. scd's on. discussed plan of care, provided extensive education and comfort measures. call light in reach.
[2016-08-18 08:00] VITALS: BP 105/66
[2016-08-18] MEDS: BOOST PLUS FOOD-CHOCLATE 237 ML BOX PO SCH ×3 (08:00→17:18)
[2016-08-18] MEDS: PROSOURCE / PROSTAT (PYXIS) 30 ML UDC GT SCH ×2 (08:16→17:17)
[2016-08-18] MEDS: ACIDOPHILUS/BULGARICUS 1 EACH TAB.CHEW PO SCH ×3 (08:18→17:14)
[2016-08-18] MEDS: FERROUS SULFATE (325 MG) 325 MG/TAB TABLET PO SCH ×2 (08:18→17:15)
[2016-08-18] MEDS: HYDROGEL DRESSING 90 GM TUBE TP SCH (08:19)
[2016-08-18] MEDS: ANASTROZOLE 1 MG TABLET PO SCH (08:19)
[2016-08-18] MEDS: methylPREDNISolone SOD SUCC 40 MG/ML VIAL IV SCH ×3 (08:19→17:15)
[2016-08-18] MEDS: PANTOPRAZOLE 40 MG VIAL IV SCH (08:20)
[2016-08-18] MEDS: MUPIROCIN OINT 2% 22 GM TUBE SCH ×2 (08:20→21:12)
[2016-08-18 11:25] LABS: ABG BASE EXCESS 10.8 mmol/L; ABG OXYGEN SATURATION 98.5 % (92.0-98.5); ABG PCO2 61.3 mmHg (35.0-45.0); ABG PH 7.405 (7.350-7.450); ABG PO2 152.2 mmHg (75.0-100.0); AaDO2 33.4 mmHg; COHb 0.2 % (0.5-1.5); MetHb 0.5 % (0.0-1.5); O2Hb 97.8 % (94.0-97.0); SITE, ABG Right Radial
[2016-08-18 12:00] VITALS: BP 109/69
--- NOTE | 2016-08-18 12:43 | NUR ---
reviewed POC with INFANTRY INDIRECT FIRE CREWMEMBER Benjamín Kahn. INFANTRY INDIRECT FIRE CREWMEMBER gave verbal orders to d/c continuous iv fluids. informed INFANTRY INDIRECT FIRE CREWMEMBER that stool is formed and no c.diff. INFANTRY INDIRECT FIRE CREWMEMBER aware of platelet level today, cont' scd prophylactic and PT, no chemical prophylactic per INFANTRY INDIRECT FIRE CREWMEMBER.
[2016-08-18 16:00] VITALS: BP 111/71
[2016-08-18] MEDS ORDERED: IV NS 0.9% 250 ML IV ONE (17:36)
--- NOTE | 2016-08-18 18:58 | NUR ---
END OF SHIFT PATIENT SAYS "I FEEL BETTER TODAY". BREATHING EVEN AND UNLABORED,. NO COMPLICATIONS WITH BL PLEURA-CHEST DRAINAGE SYSTEMS. NO BUBBLING NOTED ON R SIDE OF CHEST TUBE. RENO MIDLINE, PATENT, CDI. REPOSITIONED AND PROVIDED SKIN CARE Q2 HR. PROVIDED EXTENSIVE EDUCATION AND SUPPORT THIS SHIFT. DR. GUEVARA AWARE OF ABG AND CXR RESULTS OF TODAY. CALL LIGHT IN REACH. HANDED OFF REPORT.
--- NOTE | 2016-08-18 19:30 | NUR ---
ELEVATED WORK PLATFORM OPERATOR INITIAL NOTE: RECEIVED PATIENT RESTING IN BED, NO ACUTE DISTRESS NOTED. BREATHING EVEN AND UNLABORED, NO SOB NOTED. [place] CATHETER IN PLACE, EMPTY AT THIS TIME. DRESSING TO LEFT BREAST IN PLACE, CLEAN AND NO BLEEDING/DRAINAGE NOTED. PICC LINE TO RIGHT UPPER ARM IN PLACE. CHEST TUBE TO RIGHT CHEST IN PLACE, WILL MONITOR [id number] OUTPUT. LEFT CHEST PLEUREX IN PLACE, DRAINAGE BAG EMPTY AT THIS TIME. ISOLATION PRECAUTIONS OBSERVED. BED LOCKED AND IN LOWEST POSITION, CALL LIGHT IN REACH. WILL CONTINUE TO MONITOR
[2016-08-18 20:00] VITALS: BP 141/87
[2016-08-18] MEDS: ENOXAPARIN SODIUM 40 MG/0.4 ML DISP.SYRIN SQ SCH (21:10)
[2016-08-19] VITALS: BP 117/73
[2016-08-19] MEDS: PIPERACILLIN /TAZOBACTAM 3.375 G in IV D5W 50 ML IV SCH ×4 (01:08→17:03)
[2016-08-19] MEDS: VANCOMYCIN HCL 125 MG/2.5 ML ORAL.SUSP PO SCH ×4 (01:08→17:03)
[2016-08-19 04:00] VITALS: BP 121/71
[2016-08-19] MEDS: METRONIDAZOLE 500MG/ NS 100ML 500 MG in PREMIX 1 EA IV SCH ×3 (04:20→21:25)
[2016-08-19] MEDS: VANCOMYCIN 0.75 GM in IV D5W 250 ML IV SCH ×3 (06:11→23:32)
[2016-08-19 07:41] LABS: CREATININE 0.2 mg/dL (0.6-1.3); POTASSIUM 3.5 mmol/L (3.5-5.1)
[2016-08-19 08:00] VITALS: BP 116/73
[2016-08-19] MEDS: methylPREDNISolone SOD SUCC 40 MG/ML VIAL IV SCH ×3 (08:27→16:24)
[2016-08-19] MEDS: PANTOPRAZOLE 40 MG VIAL IV SCH (08:27)
[2016-08-19] MEDS: FERROUS SULFATE (325 MG) 325 MG/TAB TABLET PO SCH ×2 (08:28→16:24)
[2016-08-19] MEDS: ANASTROZOLE 1 MG TABLET PO SCH (08:28)
[2016-08-19] MEDS: ACIDOPHILUS/BULGARICUS 1 EACH TAB.CHEW PO SCH ×3 (08:28→16:24)
[2016-08-19] MEDS: PROSOURCE / PROSTAT (PYXIS) 30 ML UDC GT SCH ×2 (08:33→16:24)
[2016-08-19] MEDS: MUPIROCIN OINT 2% 22 GM TUBE SCH ×2 (08:33→21:35)
[2016-08-19] MEDS: BOOST PLUS FOOD-CHOCLATE 237 ML BOX PO SCH ×3 (08:33→16:24)
[2016-08-19] MEDS: HYDROGEL DRESSING 90 GM TUBE TP SCH (08:37)
--- NOTE | 2016-08-19 09:44 | NUR ---
Seen and examined by Dr. Randle. Per , plan to change R chest to to Pleurex drain after Dr. Peterson evaluates patient. No bubbling in chest tube drainage system. said to keep L pleurex drain unclamped and let continuous drain, record output qshift, change bag when full. record chest tube drainage Qshift.
--- NOTE | 2016-08-19 10:20 | NUR ---
left message with Dr Peterson's junior legal secretary- Judy, who said is out of the office this week. Electric Lineman said she would page oncall doctor. informed dr. randle. message stated: patient R chest tube no longer has leaks/ bubbling, per Dr. Randle, requesting re-evaluating for pleurx tube. Patient aware.
[2016-08-19 12:00] VITALS: BP_SYST 110; BP_DIAS 62; BP_DIAS 67
[2016-08-19 16:00] VITALS: BP 120/76
--- NOTE | 2016-08-19 17:50 | NUR ---
provided information and education about pleurx R chest drainage insertion by dr. Garvey. Patient verbalized understanding and stated she wants to talk to her first and then plans on signing consent.
--- NOTE | 2016-08-19 18:52 | NUR ---
END OF SHIFT BREATHING EVEN AND UNLABORED,. DENIES PAIN. NO COMPLICATIONS WITH BL PLEURA-CHEST DRAINAGE SYSTEMS. NO BUBBLING NOTED ON R SIDE OF CHEST TUBE. RENO MIDLINE, PATENT, CDI. REPOSITIONED AND PROVIDED SKIN CARE Q2 HR. PROVIDED EXTENSIVE EDUCATION AND SUPPORT THIS SHIFT. DR. GUEVARA AWARE OF CO2 AND CXR RESULTS OF TODAY. PATIENT SIGNED CONSENT FOR PLEURX DRAINAGE. CALL LIGHT IN REACH. HANDED OFF REPORT.
--- NOTE | 2016-08-19 19:30 | NUR ---
COMPENSATION SPECIALIST INITIAL NOTE: RECEIVED PATIENT RESTING IN BED, NO ACUTE DISTRESS NOTED. BREATHING EVEN AND UNLABORED, NO SOB NOTED WHILE ON HUMIDIFIED O2 VIA NASAL CANNULA. [place] CATHETER IN PLACE, DRAINING CLEAR YELLOW URINE TO GRAVITY. DRESSING TO LEFT BREAST IN PLACE, CLEAN AND NO BLEEDING/DRAINAGE NOTED. PICC LINE TO RIGHT UPPER ARM IN PLACE. CHEST TUBE TO RIGHT CHEST IN PLACE, WILL MONITOR DRAINAGE OUTPUT. LEFT CHEST PLEUREX IN PLACE, DRAINAGE BAG EMPTY, NEWLY REPLACED AT THIS TIME. ISOLATION PRECAUTIONS OBSERVED. BED LOCKED AND IN LOWEST POSITION, CALL LIGHT IN REACH. WILL CONTINUE TO MONITOR
[2016-08-19 20:00] VITALS: BP 130/80
[2016-08-19] MEDS: ENOXAPARIN SODIUM 40 MG/0.4 ML DISP.SYRIN SQ SCH (21:00)
[2016-08-20] VITALS: BP 109/76
--- NOTE | 2016-08-20 | NUR ---
RN NOTES PATIENT KEPT NPO, SCHEDULED FOR PROCEDURE IN AM. PATIENT VERBALIZES UNDERSTANDING REGARDING NPO INSTRUCTIONS. WILL CONTINUE TO MONITOR AND REINFORCE TEACHINGS NEEDED
[2016-08-20] MEDS: VANCOMYCIN HCL 125 MG/2.5 ML ORAL.SUSP PO SCH ×4 (00:42→17:51)
[2016-08-20] MEDS: PIPERACILLIN /TAZOBACTAM 3.375 G in IV D5W 50 ML IV SCH ×4 (00:45→17:51)
[2016-08-20 04:00] VITALS: BP 133/81
[2016-08-20] MEDS ORDERED: IV SET PRIMARY PUMP SET 1 EA INFUS.SET MC ONE ×2 (05:31→12:18)
[2016-08-20] MEDS ORDERED: IV NS 0.9% 250 ML IV ONE (05:31)
[2016-08-20] MEDS ORDERED: SECONDARY IV SET 1 EA INFUS.SET MC ONE (05:31)
[2016-08-20] MEDS: METRONIDAZOLE 500MG/ NS 100ML 500 MG in PREMIX 1 EA IV SCH ×3 (05:51→21:33)
[2016-08-20 06:50] LABS: EOSINOPHILS # (AUTO) 0.1 /CMM (0.0-0.7); EOSINOPHILS % (AUTO) 0.4 % (0.0-6.0); HEMATOCRIT 32 % (33-45); HEMOGLOBIN 11.1 g/dL (11.5-14.8); LYMPHOCYTES # (AUTO) 0.4 /CMM (0.8-4.8); LYMPHOCYTES % (AUTO) 2.5 % (20.0-44.0); MEAN CORPUSCULAR HEMOGLOBIN 31 PG (26.0-33.0); MEAN CORPUSCULAR HGB CONC 34 g/dl (31.0-36.0); MEAN CORPUSCULAR VOLUME 90 fL (82-100); MONOCYTES # (AUTO) 0.8 /CMM (0.1-1.30); MONOCYTES % (AUTO) 5.5 % (2.0-12.0); NEUTROPHILS # (AUTO) 13.9 /CMM (1.8-8.9); NEUTROPHILS % (AUTO) 91.6 % (43.0-81.0); PLATELET COUNT (AUTO) 453 /CMM (150-450); RDW COEFFICIENT OF VARIATION 19.2 (11.5-15.0); RED BLOOD CELL COUNT(AUTO) 3.59 MIL/uL (4.0-5.2); WHITE BLOOD COUNT (AUTO) 15.1 K/uL (4.3-11.0)
[2016-08-20 06:59] LABS: PROTHROMBIN TIME 10.7 SECS (9.5-12.7)
--- NOTE | 2016-08-20 07:00 | NUR ---
RN CLOSING NOTES PATIENT CURRENTLY SITTING UP IN BED, NO S/S OF ANY ACUTE DISTRESS, BREATHING EVEN AND NONLABORED. PATIENT ENDORSED TO THE AM SHIFT NURSE ALEX FOR CONTINUITY OF CARE. AM SHIFT NURSE AWARE THAT 0700 DOSE OF VANCOMYCIN NOT YET RUNNING SINCE ZOSYN DOSE CURRENTLY RUNNING.
[2016-08-20 07:10] LABS: CREATININE 0.3 mg/dL (0.6-1.3); POTASSIUM 3.4 mmol/L (3.5-5.1)
--- NOTE | 2016-08-20 07:42 | NUR ---
RN NOTES RECEIVED PATIENT AWAKE AND RESTING IN BED. BREATHING EVEN AND UNLABORED, 4L O2 VIA NC. [place] INTACT AND DRAINING CLEAR, YELLOW URINE. RIGHT CHEST TUBE IN PLACE, DRESSING CDI, LEFT PLEURA X PATENT AND DRAINING, RIGHT PICC DRESSING CDI. SIDERAILS UP X3, CALL LIGHT WITHIN EASY REACH.
[2016-08-20 08:00] VITALS: BP 117/69
[2016-08-20] MEDS: BOOST PLUS FOOD-CHOCLATE 237 ML BOX PO SCH ×3 (08:00→16:47)
[2016-08-20] MEDS: VANCOMYCIN 0.75 GM in IV D5W 250 ML IV SCH ×3 (08:07→23:20)
[2016-08-20] MEDS: PANTOPRAZOLE 40 MG VIAL IV SCH (08:26)
[2016-08-20] MEDS: methylPREDNISolone SOD SUCC 40 MG/ML VIAL IV SCH ×3 (08:26→16:47)
[2016-08-20] MEDS: HYDROGEL DRESSING 90 GM TUBE TP PRN (08:28)
[2016-08-20] MEDS: HYDROGEL DRESSING 90 GM TUBE TP SCH (08:28)
[2016-08-20] MEDS: MUPIROCIN OINT 2% 22 GM TUBE SCH ×2 (08:28→21:33)
[2016-08-20] MEDS: FERROUS SULFATE (325 MG) 325 MG/TAB TABLET PO SCH ×2 (08:29→16:47)
[2016-08-20] MEDS: ACIDOPHILUS/BULGARICUS 1 EACH TAB.CHEW PO SCH ×3 (08:29→16:47)
[2016-08-20] MEDS: PROSOURCE / PROSTAT (PYXIS) 30 ML UDC GT SCH ×2 (08:29→16:47)
--- NOTE | 2016-08-20 09:00 | NUR ---
RN NOTES PATIENT WANTS TO SEE DR GUEVARA BEFORE SURGERY, DR GUEVARA NOTIFIED.
[2016-08-20] MEDS ORDERED: POTASSIUM CL. PREMIX PERIPHER. 50 ML IV SCH (11:43)
[2016-08-20 12:00] VITALS: BP 131/73
[2016-08-20] MEDS ORDERED: POTASSIUM CHLORIDE 10 MEQ/50 ML PREMIXED IVPB FOR PERIPHERAL LINE IV ONE (12:00)
[2016-08-20] MEDS ORDERED: POTASSIUM CHLORIDE 20 MEQ POWDER PACKET PO ONE (12:00)
--- NOTE | 2016-08-20 13:25 | NUR ---
RN NOTES 50CC SEROSANGUINEOUS DRAINAGE NOTED FROM RIGHT CHEST TUBE.
--- NOTE | 2016-08-20 13:25 | NUR ---
RN NOTES PATIENT TO OR, STABLE CONDITION. VSS STABLE. NO RESPIRATORY DISTRESS NOTED, O2 4LPM VIA NC.
--- NOTE | 2016-08-20 14:33 | NUR ---
RN NOTES PATIENT STILL OFF UNIT IN SURGERY
--- NOTE | 2016-08-20 15:00 | NUR ---
RN NOTES PATIENT RECEIVED FROM RECOVERY, VSS STABLE, BP 123/75, HR 93, T 98.3, R 18, O2SAT 98% ON O2 3LPM VIA NC. NO RESPIRATORY DISTRESS NOTED. RIGHT PLUERA X CLAMPED AND INTACT, DRESSING CDI. PATIENT DENIES ANY DISTRESS, NO SOB NOTED. CONTINUE TO MONITOR, @ BEDSIDE.
[2016-08-20] MEDS ORDERED: ANESTHESIA TRAY IN PYXIS 1 EA TRAY MC ONE (15:19)
[2016-08-20] MEDS: ANASTROZOLE 1 MG TABLET PO SCH (15:47)
[2016-08-20 16:00] VITALS: BP 114/79
--- NOTE | 2016-08-20 18:31 | NUR ---
RN END NOTES PATIENT AWAKE IN BED. VSS STABLE, BREATHING EVEN AND UNLABORED, O2SAT 99% WITH O2 3LPM. NO SOB NOTED. RIGHT CHEST TUBE DRESSING SITE CDI, LEFT PLEURA X DRAINED 280CC SEROSANGUINEOUS FLUID. NO COMPLICATIONS NOTED. DENIES ANY PAIN. LEAKING NOTICED AT [place]UST[place] CATH SITE, INJECTED EXTRA 5CC H20 INTO CATHETER BALLOON. PUREED DINNER TOLERATED WELL. SIDERAILS UP X3, CALL LIGHT WITHIN EASY REACH., ALL NEEDS ATTENDED TO, @ BEDSIDE.
--- NOTE | 2016-08-20 18:43 | NUR ---
RN NOTES NO FURTHER LEAKAGE NOTED @ THE [place] CATHETER SITE.
--- NOTE | 2016-08-20 19:28 | NUR ---
ARMHOLE BASTER HAND INITIAL NOTE PT RECEIVED RESTING IN BED. A/O X3 AND ABLE TO MAKE NEEDS KNOWN. NO C/O PAIN OR DISCOMFORT AT THIS TIME. ON 3L OF O2 AND SATING WELL. NO SOB NOTED. TELE-SINUS RHYTHM/TACH. IV RENO PICC CLEAN AND PATENT. CHEST TUBE L SIDE IN PLACE AND DRAINING B GRAVITY. R SIDE CHEST TUBING CLAMPED AND CLEAN. DRESSING ON R AND L SIDE CLEAN AND INTACT. [place] CATHETER DRAINING CLEAR YELLOW URINE. ISOLATION PRECAUTIONS OBSERVED. CALL LIGHT WITHIN EASY REACH AT ALL TIMES. WILL CONTINUE TO MONITOR.
[2016-08-20 20:00] VITALS: BP 124/72
[2016-08-20] MEDS: ENOXAPARIN SODIUM 40 MG/0.4 ML DISP.SYRIN SQ SCH (21:34)
[2016-08-21] VITALS: BP 122/77
[2016-08-21] MEDS: VANCOMYCIN HCL 125 MG/2.5 ML ORAL.SUSP PO SCH ×5 (00:31→23:27)
[2016-08-21] MEDS: PIPERACILLIN /TAZOBACTAM 3.375 G in IV D5W 50 ML IV SCH ×4 (00:32→18:56)
[2016-08-21 04:00] VITALS: BP 110/70
[2016-08-21] MEDS: METRONIDAZOLE 500MG/ NS 100ML 500 MG in PREMIX 1 EA IV SCH ×3 (04:30→21:12)
[2016-08-21] MEDS: VANCOMYCIN 0.75 GM in IV D5W 250 ML IV SCH ×3 (06:57→23:20)
--- NOTE | 2016-08-21 07:06 | NUR ---
TRUCK CHAUFFEUR CLOSING NOTE PT REMAINED STABLE DURING SHIFT. NO SOB NOTED. ON 3L OF O2 AND SATING WELL AT 100%. NO C/O PAIN AT THIS TIME. PT REPOSITIONED Q2H. L CHEST DRAIN IN PLACE AND DRAINING CLEAR TO LIGHT YELLOW FLUID. R CHEST TUBING CLAMPED AND SITE CLEAN AND INTACT. [place] CATHETER IN PLACE. IV SITE PATENT AND INTACT. ISOLATION PRECAUTIONS OBSERVED. WILL ENDORSE TO NEXT SHIFT FOR CLARENCE.
[2016-08-21 07:10] LABS: CALCIUM, SERUM 8.1 mg/dL (8.5-10.1); CREATININE 0.2 mg/dL (0.6-1.3); POTASSIUM 3.4 mmol/L (3.5-5.1)
--- NOTE | 2016-08-21 07:30 | NUR ---
FUR BLOWING MACHINE OPERATOR NOTES PT IN BED, AWAKE, ALERT AND ORIENTED, NO COMPLAINT OF PAIN OR ANY DISCOMFORT, BREATHING PATTERN NORMAL AND NOT LABORED, LEFT AND RIGHT TUBES SITES CLEAN AND DRY, DRESSING INTACT, CALL LIGHT WITHIN REACH, ISOLATION PRECAUTIONS OBSERVED.
[2016-08-21 08:00] VITALS: BP 123/62
[2016-08-21] MEDS: BOOST PLUS FOOD-CHOCLATE 237 ML BOX PO SCH ×3 (08:32→17:41)
[2016-08-21] MEDS: PROSOURCE / PROSTAT (PYXIS) 30 ML UDC GT SCH ×2 (08:32→17:41)
[2016-08-21] MEDS: PANTOPRAZOLE 40 MG VIAL IV SCH (08:32)
[2016-08-21] MEDS: methylPREDNISolone SOD SUCC 40 MG/ML VIAL IV SCH ×3 (08:33→17:41)
[2016-08-21] MEDS: ACIDOPHILUS/BULGARICUS 1 EACH TAB.CHEW PO SCH ×3 (08:33→17:42)
[2016-08-21] MEDS: FERROUS SULFATE (325 MG) 325 MG/TAB TABLET PO SCH ×2 (08:33→17:42)
[2016-08-21] MEDS: ANASTROZOLE 1 MG TABLET PO SCH (08:33)
[2016-08-21] MEDS: MUPIROCIN OINT 2% 22 GM TUBE SCH ×2 (08:44→21:15)
[2016-08-21] MEDS: HYDROGEL DRESSING 90 GM TUBE TP PRN (08:44)
[2016-08-21] MEDS: HYDROGEL DRESSING 90 GM TUBE TP SCH (08:46)
[2016-08-21 11:32] LABS: ABG BASE EXCESS 11.1 mmol/L; ABG OXYGEN SATURATION 98.3 % (92.0-98.5); ABG PCO2 58.4 mmHg (35.0-45.0); ABG PH 7.425 (7.350-7.450); AaDO2 16.8 mmHg; COHb 0.4 % (0.5-1.5); O2Hb 96.9 % (94.0-97.0); SITE, ABG Right Radial
[2016-08-21] MEDS ORDERED: SECONDARY IV SET 1 EA INFUS.SET MC ONE ×2 (11:36→17:40)
[2016-08-21] MEDS: POTASSIUM CL. PREMIX PERIPHER. 50 ML IV SCH ×2 (11:51→13:13)
[2016-08-21 12:00] VITALS: BP 116/57
[2016-08-21] MEDS ORDERED: POTASSIUM CHLORIDE 20 MEQ TAB.PRT.SR PO ONE (12:00)
--- NOTE | 2016-08-21 12:42 | NUR ---
CORK WIRER NOTES PT IN BED, AWAKE, ALERT AND ORIENTED, NO COMPLAINT OF PAIN AT THIS TIME, AT BEDSIDE, PT SEEN BY MATT GAY, INFORMED OF EPISODE OF BLOOD TINGED URINE THIS MORNING, NO NEW ORDERS GIVEN, F/C NOW DRAINING CLEAR YELLOW URINE, NO BLADDER PAIN OR DISCOMFORT NOTED, ASSISTED IN REPOSITIONING, NEEDS ATTENDED.
[2016-08-21 16:00] VITALS: BP 139/62
[2016-08-21] MEDS: SOD FERRIC GLUC 125 MG in IV NS 0.9% 100 ML IV SCH (17:41)
--- NOTE | 2016-08-21 18:32 | NUR ---
TERMINAL PRESS OPERATOR NOTES PT IN BED, AWAKE, ALERT AND ORIENTED, NO COMPLAINT OF PAIN, NOT IN DISTRESS, PM CARE RENDERED, WOUND TREATMENTS AND DRESSING CHANGE DONE, IV MEDS GIVEN ORDERED, ASSISTED WITH ADL'S, SEEN BY PT TODAY, TOLERATED ACTIVITY WELL, ALL NEEDS ATTENDED.
[2016-08-21 20:00] VITALS: BP 112/76
[2016-08-21] MEDS: ENOXAPARIN SODIUM 40 MG/0.4 ML DISP.SYRIN SQ SCH (21:13)
[2016-08-22] VITALS: BP 131/76
[2016-08-22] MEDS: PIPERACILLIN /TAZOBACTAM 3.375 G in IV D5W 50 ML IV SCH ×4 (00:41→17:56)
[2016-08-22 04:00] VITALS: BP 104/62
[2016-08-22] MEDS: METRONIDAZOLE 500MG/ NS 100ML 500 MG in PREMIX 1 EA IV SCH ×3 (04:38→21:12)
[2016-08-22] MEDS: VANCOMYCIN HCL 125 MG/2.5 ML ORAL.SUSP PO SCH ×3 (05:14→17:56)
--- NOTE | 2016-08-22 06:19 | NUR ---
RN CLOSING NOTES PATIENT AWAKE IN BED. VSS STABLE, BREATHING EVEN AND UNLABORED, O2SAT 100 WITH O2 3LPM. NO SOB NOTED. RIGHT CHEST TUBE DRESSING SITE CDI, LEFT PLEURA X DRAINED 225CC CLEAR FLUID AND RIGHT CLAMPED 350CC. NO COMPLICATIONS NOTED. DENIES ANY PAIN. NO LEAKING NOTICED AT [place] CATH SITE, INJECTED EXTRA 5CC H20 INTO CATHETER BALLOON. WELL. SIDERAILS UP X3, CALL LIGHT WITHIN EASY REACH., ALL NEEDS ATTENDED TO, @ BEDSIDE
--- NOTE | 2016-08-22 07:15 | NUR ---
RN INITIAL NOTES: REC'D PT AWAKE ON BED, NOT IN ANY DISTRESS, A/O X4, DENIES ANY PAIN/ DISCOMFORT. PT ON O2 AT 3LPM/NC, SATURATING AT 100%. ON TELEMONITOR, SR/ST. HAS PATENT & INTACT FC. HAS RENO PICC LINE SL, FLUSHED, PATENT & INTACT W/ NO SIGNS OF INFECTION/ INFILTRATION. HAS B CHEST TUBE: RIGHT - CLAMPED W/ C/D/I DRESSING, LEFT - CONTINUOUSLY DRAINING, REC'D ON 300 CC LEVEL. PROVIDED COMFORT & SAFETY MEASURES. CALL LIGHT PLACED W/IN REACH. BED KEPT LOW & IN LOCKED POSITION. ISOLATION PRECAUTION OBSERVED. NEEDS ATTENDED. WILL CONTINUE TO MONITOR.
[2016-08-22] MEDS: VANCOMYCIN 0.75 GM in IV D5W 250 ML IV SCH ×3 (07:19→23:17)
[2016-08-22 07:54] LABS: CALCIUM, SERUM 7.9 mg/dL (8.5-10.1); CREATININE 0.2 mg/dL (0.6-1.3); POTASSIUM 3.5 mmol/L (3.5-5.1)
[2016-08-22 08:00] VITALS: BP 103/60
[2016-08-22] MEDS: methylPREDNISolone SOD SUCC 40 MG/ML VIAL IV SCH ×3 (08:23→17:55)
[2016-08-22] MEDS: PANTOPRAZOLE 40 MG VIAL IV SCH (08:23)
[2016-08-22] MEDS: BOOST PLUS FOOD-CHOCLATE 237 ML BOX PO SCH ×3 (08:23→17:55)
[2016-08-22] MEDS: PROSOURCE / PROSTAT (PYXIS) 30 ML UDC GT SCH ×2 (08:23→17:55)
[2016-08-22] MEDS: ACIDOPHILUS/BULGARICUS 1 EACH TAB.CHEW PO SCH ×3 (08:23→17:55)
[2016-08-22] MEDS: ANASTROZOLE 1 MG TABLET PO SCH (08:24)
[2016-08-22] MEDS: FERROUS SULFATE (325 MG) 325 MG/TAB TABLET PO SCH ×2 (08:24→17:55)
[2016-08-22] MEDS: HYDROGEL DRESSING 90 GM TUBE TP SCH (08:24)
[2016-08-22] MEDS: MUPIROCIN OINT 2% 22 GM TUBE SCH ×2 (08:29→23:23)
--- NOTE | 2016-08-22 09:00 | NUR ---
RN NOTES: PT SEEN & EXAMINED BY DR. GUEVARA, REPORTED B CHEST TUBE OUTPUT W/ ORDERS TO DRAIN ONCE A DAY R CHEST TUBE W/ MAX OUTPUT OF 500 ML.
[2016-08-22 12:00] VITALS: BP 105/63
[2016-08-22] MEDS: SOD FERRIC GLUC 125 MG in IV NS 0.9% 100 ML IV SCH (15:06)
[2016-08-22 16:00] VITALS: BP 116/70
[2016-08-22] MEDS ORDERED: IV SET PRIMARY PUMP SET 1 EA INFUS.SET MC ONE (17:51)
--- NOTE | 2016-08-22 18:00 | NUR ---
RN NOTES: R CHEST TUBE DRAINED ASEPTICALLY W/ 350 CC OUTPUT. PT TOLERATED PROCEDURE. L CHEST TUBE W/ OUTPUT OF 200 CC (ENDORSED AT 500 CC LEVEL).
--- NOTE | 2016-08-22 19:00 | NUR ---
RN CLOSING NOTES: NO ACUTE CHANGES W/IN SHIFT. NO SOB, DENIES ANY PAIN/ DISCOMFORT. FC KEPT PATENT & INTACT. RENO PICC LINE SL, KEPT PATENT & INTACT W/ NO SIGNS OF INFECTION/ INFILTRATION. B CHEST TUBE IN PLACE W/ C/D/I DRESSING: RIGHT - CLAMPED, DRESSING CHANGED, LEFT - CONTINUOUSLY DRAINING, ON 500 CC LEVEL. KEPT WELL RESTED. ENCOURAGED PT TO USE IS. CALL LIGHT PLACED W/IN REACH. BED KEPT LOW & IN LOCKED POSITION. ISOLATION PRECAUTION OBSERVED. NEEDS ATTENDED. ENDORSED TO PM RN FOR CLARENCE.
--- NOTE | 2016-08-22 19:36 | NUR ---
GOLF SUPERINTENDENT INITIAL NOTE PT RECEIVED RESTING IN BED. A/O X3 AND ABLE TO MAKE NEEDS KNOWN. NO C/O PAIN OR DISCOMFORT AT THIS TIME. ON 3L OF O2 AND SATING WELL. NO SOB NOTED. TELE-SINUS RHYTHM/TACH. IV RENO PICC CLEAN AND PATENT. CHEST TUBE L SIDE IN PLACE AND DRAINING B GRAVITY. R SIDE CHEST TUBING CLAMPED AND CLEAN. DRESSING ON R AND L SIDE CLEAN AND INTACT. [place] CATHETER DRAINING CLEAR YELLOW URINE. ISOLATION PRECAUTIONS OBSERVED. CALL LIGHT WITHIN EASY REACH AT ALL TIMES WITH ALL IMMEDIATE QUESTIONS AND NEEDS ATTENDED.
[2016-08-22 20:00] VITALS: BP 129/77
[2016-08-22] MEDS: ENOXAPARIN SODIUM 40 MG/0.4 ML DISP.SYRIN SQ SCH (21:19)
[2016-08-23] VITALS (7 sets, daily range): BP systolic 111–139; BP diastolic 67–80
[2016-08-23] MEDS: PIPERACILLIN /TAZOBACTAM 3.375 G in IV D5W 50 ML IV SCH ×5 (00:49→23:25)
[2016-08-23] MEDS: VANCOMYCIN HCL 125 MG/2.5 ML ORAL.SUSP PO SCH ×5 (00:49→23:25)
[2016-08-23] MEDS ORDERED: IV NS 0.9% 250 ML IV ONE (00:54)
[2016-08-23] MEDS: METRONIDAZOLE 500MG/ NS 100ML 500 MG in PREMIX 1 EA IV SCH ×3 (04:32→20:54)
--- NOTE | 2016-08-23 06:15 | NUR ---
SPECIAL EFFECTS MAKEUP ARTIST INITIAL NOTE ENDORSED PT ASLEEP IN BED. A/O X3 AND ABLE TO MAKE NEEDS KNOWN. NO C/O PAIN OR DISCOMFORT AT THIS TIME. ON 3L OF O2 AND SATING WELL. NO SOB NOTED. TELE-SINUS RHYTHM/TACH. IV RENO PICC CLEAN AND PATENT. CHEST TUBE L SIDE IN PLACE AND DRAINING B GRAVITY. R SIDE CHEST TUBING CLAMPED AND CLEAN. DRESSING ON R AND L SIDE CLEAN AND INTACT. [place] CATHETER DRAINING CLEAR YELLOW URINE. ISOLATION PRECAUTIONS OBSERVED. CALL LIGHT WITHIN EASY REACH AT ALL TIMES WITH ALL IMMEDIATE QUESTIONS AND NEEDS ATTENDED.
[2016-08-23 06:31] LABS: EOSINOPHILS % (AUTO) 0.2 % (0.0-6.0); HEMATOCRIT 31 % (33-45); HEMOGLOBIN 10.1 g/dL (11.5-14.8); LYMPHOCYTES # (AUTO) 0.8 /CMM (0.8-4.8); LYMPHOCYTES % (AUTO) 4.4 % (20.0-44.0); MEAN CORPUSCULAR HEMOGLOBIN 30 PG (26.0-33.0); MEAN CORPUSCULAR HGB CONC 33 g/dl (31.0-36.0); MEAN CORPUSCULAR VOLUME 90 fL (82-100); MONOCYTES # (AUTO) 0.7 /CMM (0.1-1.30); MONOCYTES % (AUTO) 4.1 % (2.0-12.0); NEUTROPHILS % (AUTO) 91.3 % (43.0-81.0); PLATELET COUNT (AUTO) 363 /CMM (150-450); RDW COEFFICIENT OF VARIATION 19.1 (11.5-15.0); WHITE BLOOD COUNT (AUTO) 17.5 K/uL (4.3-11.0)
[2016-08-23 06:52] LABS: CREATININE 0.3 mg/dL (0.6-1.3); POTASSIUM 3.7 mmol/L (3.5-5.1)
[2016-08-23] MEDS: VANCOMYCIN 0.75 GM in IV D5W 250 ML IV SCH ×3 (06:53→23:25)
--- NOTE | 2016-08-23 07:00 | NUR ---
RN INITIAL NOTE RECEIVED PT FROM LALITHA PM SHIFT FOR CLARENCE. PT A/O X4. TELE SR. NC 3L NO S/S SOB. FC INTACT. GURPREET CHEST TUBE, R SIDE CLAMPED. IV RENO PICC LINE FLUSH PATENT INTACT. PT CLEAN CLEAN WARM AND DRY. WILL CONTINUE TO MONITOR CLOSELY. ALL SAFETY MEASURES IN PLACE.
[2016-08-23] MEDS: ACIDOPHILUS/BULGARICUS 1 EACH TAB.CHEW PO SCH ×3 (08:46→17:05)
[2016-08-23] MEDS: ANASTROZOLE 1 MG TABLET PO SCH (08:46)
[2016-08-23] MEDS: PANTOPRAZOLE 40 MG VIAL IV SCH (08:46)
[2016-08-23] MEDS: PROSOURCE / PROSTAT (PYXIS) 30 ML UDC GT SCH ×2 (08:47→17:12)
[2016-08-23] MEDS: BOOST PLUS FOOD-CHOCLATE 237 ML BOX PO SCH ×3 (08:47→17:05)
[2016-08-23] MEDS: methylPREDNISolone SOD SUCC 40 MG/ML VIAL IV SCH ×3 (08:47→17:05)
[2016-08-23] MEDS: FERROUS SULFATE (325 MG) 325 MG/TAB TABLET PO SCH ×2 (08:47→17:05)
[2016-08-23] MEDS: HYDROGEL DRESSING 90 GM TUBE TP SCH (08:51)
[2016-08-23] MEDS: MUPIROCIN OINT 2% 22 GM TUBE SCH ×2 (08:52→20:54)
[2016-08-23 09:47] LABS: BAND % (MANUAL) 3 % (0.0-5.0); LYMPHOCYTES % (MANUAL) 3 % (16-48); MONOCYTES % (MANUAL) 6 % (0-11.0); NEUTROPHILS % (MANUAL) 88 (42-76)
[2016-08-23] MEDS: SOD FERRIC GLUC 125 MG in IV NS 0.9% 100 ML IV SCH (17:00)
--- NOTE | 2016-08-23 18:50 | NUR ---
RN NOTE CALLED C. SUPPLY FOR PLEURX BOTTLE FOR TOMORROW.
--- NOTE | 2016-08-23 19:20 | NUR ---
RN CLOSING NOTE REPORT GIVEN TO JUANITA PM SHIFT FOR CLARENCE. PT A/O X4. TELE SR THROUGH OUT SHIFT. PAIN 0/0 THROUGH OUT SHIFT. NC 3L NO S/S SOB. FC INTACT. GURPREET CHEST TUBE, R SIDE CLAMPED. IV RENO PICC LINE PATENT INTACT THROUGH OUT SHIFT. DRESSING CHANGED TODAY. PT CLEAN CLEAN WARM AND DRY. ALL SAFETY MEASURES IN PLACE. ALL MEDICATIONS GIVEN ALL ORDERS CARRIED OUT.
[2016-08-23] MEDS: ENOXAPARIN SODIUM 40 MG/0.4 ML DISP.SYRIN SQ SCH (20:55)
[2016-08-24] VITALS: BP 124/88
[2016-08-24 04:00] VITALS: BP 126/82
[2016-08-24] MEDS: PIPERACILLIN /TAZOBACTAM 3.375 G in IV D5W 50 ML IV SCH ×3 (05:26→20:14)
[2016-08-24] MEDS: METRONIDAZOLE 500MG/ NS 100ML 500 MG in PREMIX 1 EA IV SCH ×3 (05:26→20:14)
[2016-08-24] MEDS: VANCOMYCIN HCL 125 MG/2.5 ML ORAL.SUSP PO SCH ×4 (05:26→23:46)
[2016-08-24 06:50] LABS: CALCIUM, SERUM 8.1 mg/dL (8.5-10.1); CREATININE 0.2 mg/dL (0.6-1.3); POTASSIUM 3.6 mmol/L (3.5-5.1)
[2016-08-24 08:00] VITALS: BP 122/68
[2016-08-24] MEDS: BOOST PLUS FOOD-CHOCLATE 237 ML BOX PO SCH ×3 (08:00→18:01)
--- NOTE | 2016-08-24 08:00 | NUR ---
RN INITIAL NOTE RECEIVED PT FROM LALITHA PM SHIFT FOR CLARENCE. PT A/O X4. TELE SR. NC 3L NO S/S SOB. FC INTACT. GURPREET CHEST DRAINAGE TUBE, R SIDE CLAMPED. IV RENO PICC LINE FLUSH PATENT INTACT. PT CLEAN CLEAN WARM AND DRY X 2 CHANGES . WILL CONTINUE TO MONITOR CLOSELY. ALL SAFETY MEASURES IN PLACE.
[2016-08-24] MEDS: ANASTROZOLE 1 MG TABLET PO SCH (08:55)
[2016-08-24] MEDS: FERROUS SULFATE (325 MG) 325 MG/TAB TABLET PO SCH ×2 (08:55→17:44)
[2016-08-24] MEDS: PANTOPRAZOLE 40 MG VIAL IV SCH (08:55)
[2016-08-24] MEDS: ACIDOPHILUS/BULGARICUS 1 EACH TAB.CHEW PO SCH ×3 (08:55→17:44)
[2016-08-24] MEDS: VANCOMYCIN 0.75 GM in IV D5W 250 ML IV SCH ×3 (08:55→23:46)
[2016-08-24] MEDS: methylPREDNISolone SOD SUCC 40 MG/ML VIAL IV SCH ×3 (08:55→17:44)
[2016-08-24] MEDS: MUPIROCIN OINT 2% 22 GM TUBE SCH ×2 (09:03→20:16)
[2016-08-24] MEDS: HYDROGEL DRESSING 90 GM TUBE TP SCH (09:03)
--- NOTE | 2016-08-24 09:44 | NUR ---
RN Note Rn spoke with the patient and the family in regards to the need for pleurx starter kit. the rn has contacted central supply x2 , notified the charge nurse soon in regards to the issue and also contacted the powerhouse mechanic apprentice and was told to page central supply over the overhead speaker . This process was followed RN currently awaiting a return phone call for the supply.
[2016-08-24] MEDS: PROSOURCE / PROSTAT (PYXIS) 30 ML UDC GT SCH ×2 (09:48→17:43)
[2016-08-24 12:00] VITALS: BP 123/80
[2016-08-24 16:00] VITALS: BP 124/82
[2016-08-24] MEDS: SOD FERRIC GLUC 125 MG in IV NS 0.9% 100 ML IV SCH (17:40)
--- NOTE | 2016-08-24 19:38 | NUR ---
RN CLOSING NOTE REPORT GIVEN TO PM SHIFT FOR CLARENCE. PT A/O X4. TELE SR THROUGH OUT SHIFT. PAIN 0/0 THROUGH OUT SHIFT. NC 3L NO S/S SOB. FC INTACT. GURPREET CHEST TUBE, R SIDE CLAMPED. IV RENO PICC LINE PATENT INTACT THROUGH OUT SHIFT. PT CLEAN CLEAN WARM AND DRY. ALL SAFETY MEASURES IN PLACE. ALL MEDICATIONS GIVEN ALL ORDERS CARRIED OUT.
--- NOTE | 2016-08-24 19:43 | NUR ---
150 cc drained from the patient right drain and 600 cc drained from the left drain
[2016-08-24 20:00] VITALS: BP 133/84
[2016-08-24] MEDS: ENOXAPARIN SODIUM 40 MG/0.4 ML DISP.SYRIN SQ SCH (20:15)
[2016-08-25] VITALS: BP 120/76
[2016-08-25] MEDS: PIPERACILLIN /TAZOBACTAM 3.375 G in IV D5W 50 ML IV SCH ×5 (00:49→23:37)
[2016-08-25 04:00] VITALS: BP 128/74
[2016-08-25] MEDS: METRONIDAZOLE 500MG/ NS 100ML 500 MG in PREMIX 1 EA IV SCH ×3 (05:09→20:25)
[2016-08-25] MEDS: VANCOMYCIN HCL 125 MG/2.5 ML ORAL.SUSP PO SCH ×4 (06:11→23:37)
[2016-08-25 06:48] LABS: CALCIUM, SERUM 8.1 mg/dL (8.5-10.1); CREATININE 0.2 mg/dL (0.6-1.3); POTASSIUM 3.6 mmol/L (3.5-5.1)
--- NOTE | 2016-08-25 07:15 | NUR ---
RN INITIAL NOTES: REC'D PT AWAKE ON BED, NOT IN ANY DISTRESS, A/O X4, DENIES ANY PAIN/ DISCOMFORT. PT ON O2 AT 2.5LPM/NC, SATURATING AT 100%. ON TELEMONITOR, SR. HAS PATENT & INTACT FC. HAS RENO PICC LINE SL, FLUSHED, PATENT & INTACT W/ NO SIGNS OF INFECTION/ INFILTRATION. HAS B CHEST TUBE: RIGHT - CLAMPED W/ C/D/I DRESSING, LEFT - CONTINUOUSLY DRAINING, REC'D ON 380 CC LEVEL. PROVIDED COMFORT & SAFETY MEASURES. CALL LIGHT PLACED W/IN REACH. BED KEPT LOW & IN LOCKED POSITION. ISOLATION PRECAUTION OBSERVED. NEEDS ATTENDED. WILL CONTINUE TO MONITOR.
[2016-08-25] MEDS: VANCOMYCIN 0.75 GM in IV D5W 250 ML IV SCH ×3 (07:45→23:37)
[2016-08-25 08:00] VITALS: BP 134/85
[2016-08-25] MEDS ORDERED: SECONDARY IV SET 1 EA INFUS.SET MC ONE (08:00)
[2016-08-25] MEDS: methylPREDNISolone SOD SUCC 40 MG/ML VIAL IV SCH ×3 (08:19→17:21)
[2016-08-25] MEDS: PANTOPRAZOLE 40 MG VIAL IV SCH (08:19)
[2016-08-25] MEDS: PROSOURCE / PROSTAT (PYXIS) 30 ML UDC GT SCH ×2 (08:20→17:20)
[2016-08-25] MEDS: ACIDOPHILUS/BULGARICUS 1 EACH TAB.CHEW PO SCH ×3 (08:20→17:21)
[2016-08-25] MEDS: HYDROGEL DRESSING 90 GM TUBE TP SCH (08:20)
[2016-08-25] MEDS: FERROUS SULFATE (325 MG) 325 MG/TAB TABLET PO SCH ×2 (08:20→17:21)
[2016-08-25] MEDS: ANASTROZOLE 1 MG TABLET PO SCH (08:20)
[2016-08-25] MEDS: Z GUARD REMEDY 2 OZ OINT TP PRN (08:21)
[2016-08-25] MEDS: MUPIROCIN OINT 2% 22 GM TUBE SCH ×2 (08:28→20:31)
[2016-08-25] MEDS: BOOST PLUS FOOD-CHOCLATE 237 ML BOX PO SCH ×3 (08:35→17:23)
--- NOTE | 2016-08-25 09:00 | NUR ---
RN NOTES: L CHEST TUBE BAG CHANGED C/O PT'S . OFFERED TO DO IT BUT PT SAID IT'S OKAY FOR HER TO DO IT. PT TOLERATED IT.
--- NOTE | 2016-08-25 09:30 | NUR ---
RN NOTES: PT SEEN & EXAMINED BY DR. GUEVARA. PER MD BHAT TO CHANGE DRESSING ON THE CHEST TUBES. PT MADE AWARE.
[2016-08-25 12:00] VITALS: BP 132/76
--- NOTE | 2016-08-25 13:00 | NUR ---
RN NOTES: PT SEEN & EXAMINED BY DR. MCGINNIS W/ ORDERS TO DO WOUND CULTURE ON THE BREAST AREA.
--- NOTE | 2016-08-25 13:00 | NUR ---
RN NOTES: PT SEEN & EXAMINED BY DR. VINCENT.
[2016-08-25] MEDS ORDERED: INSULIN REGULAR, HUMAN 100 UNIT/ML 3 ML VIAL SQ ONE (13:30)
[2016-08-25] MEDS: SOD FERRIC GLUC 125 MG in IV NS 0.9% 100 ML IV SCH (15:18)
[2016-08-25 16:00] VITALS: BP 127/75
--- NOTE | 2016-08-25 19:19 | NUR ---
RN CLOSING NOTES: NO ACUTE CHANGES W/IN SHIFT. NO SOB, DENIES ANY PAIN/ DISCOMFORT. FC KEPT PATENT & INTACT. RENO PICC LINE SL, KEPT PATENT & INTACT W/ NO SIGNS OF INFECTION/ INFILTRATION. B CHEST TUBE IN PLACE W/ C/D/I DRESSING: RIGHT - CLAMPED (100 CC DRAINED), DRESSING CHANGED, LEFT - CONTINUOUSLY DRAINING, ON 280 CC LEVEL (DRAINED 300 CC). KEPT WELL RESTED. CALL LIGHT PLACED W/IN REACH. BED KEPT LOW & IN LOCKED POSITION. ISOLATION PRECAUTION OBSERVED. NEEDS ATTENDED. ENDORSED TO PM RN FOR CLARENCE.
--- NOTE | 2016-08-25 19:30 | NUR ---
RN INITIAL NOTES: RECEIVED PT AWAKE ON BED,VERBALLY RESPONSIVE TO STIMULI., A/O X4, DENIES ANY PAIN/ DISCOMFORT WHEN ASKED. PT ON O2 AT 2.5 LPM/NC, SATURATING AT 100%. ON TELEMONITOR. RIGHT UPPER ARM PICC LINE NOTED.PATENT & INTACT W/ NO SIGNS OF INFECTION/ INFILTRATION. HAS GURPREET.CHEST TUBE: RIGHT - CLAMPED W/ C/D/I DRESSING, LEFT CONTINUOUSLY DRAINING. HAS [place] CATHETER DWELLING WELL WITH YELLOW CLEAR URINE. SAFETY MEASURES MAINTAINED. BED IN LOWEST POSITION. KEPT CLEAN AND DRY. WILL CONTINUE TO MONITOR.
[2016-08-25 20:00] VITALS: BP 137/80
[2016-08-25] MEDS: ENOXAPARIN SODIUM 40 MG/0.4 ML DISP.SYRIN SQ SCH (20:29)
[2016-08-26] VITALS: BP 125/81
--- NOTE | 2016-08-26 | NUR ---
RN NOTES NO SIGNIFICANT CHANGES NOTED.ALL NEEDS ANTICIPATED. TURNED AND REPOSITIONED.KEPT CLEAN AND DRY AT ALL TIMES. SAFETY PRECAUTION AND CONTACT ISOLATION MAINTAINED. WILL CONTINUE TO MONITOR.
[2016-08-26 04:00] VITALS: BP 137/90
[2016-08-26] MEDS: METRONIDAZOLE 500MG/ NS 100ML 500 MG in PREMIX 1 EA IV SCH ×3 (04:19→20:51)
[2016-08-26] MEDS: VANCOMYCIN HCL 125 MG/2.5 ML ORAL.SUSP PO SCH ×4 (05:23→23:04)
[2016-08-26] MEDS: PIPERACILLIN /TAZOBACTAM 3.375 G in IV D5W 50 ML IV SCH ×3 (05:23→17:20)
[2016-08-26] MEDS: VANCOMYCIN 0.75 GM in IV D5W 250 ML IV SCH ×3 (06:10→22:43)
[2016-08-26 06:51] LABS: CREATININE 0.2 mg/dL (0.6-1.3); PHOSPHORUS 2.3 mg/dL (2.5-4.9); POTASSIUM 3.6 mmol/L (3.5-5.1)
[2016-08-26 06:58] LABS: HEMATOCRIT 31 % (33-45); HEMOGLOBIN 10.3 g/dL (11.5-14.8); LYMPHOCYTES # (AUTO) 0.6 /CMM (0.8-4.8); LYMPHOCYTES % (AUTO) 2.8 % (20.0-44.0); MEAN CORPUSCULAR HEMOGLOBIN 31 PG (26.0-33.0); MEAN CORPUSCULAR HGB CONC 34 g/dl (31.0-36.0); MEAN CORPUSCULAR VOLUME 91 fL (82-100); MONOCYTES # (AUTO) 1.1 /CMM (0.1-1.30); MONOCYTES % (AUTO) 5.4 % (2.0-12.0); NEUTROPHILS # (AUTO) 18.8 /CMM (1.8-8.9); NEUTROPHILS % (AUTO) 91.8 % (43.0-81.0); PLATELET COUNT (AUTO) 303 /CMM (150-450); RDW COEFFICIENT OF VARIATION 19.2 (11.5-15.0); RED BLOOD CELL COUNT(AUTO) 3.37 MIL/uL (4.0-5.2); WHITE BLOOD COUNT (AUTO) 20.4 K/uL (4.3-11.0)
--- NOTE | 2016-08-26 07:15 | NUR ---
RN NOTES ENDORSED PT.TO THE NEXT SHIFT WITH NO CHANGE OF CONDITION.
--- NOTE | 2016-08-26 07:15 | NUR ---
RN INITIAL NOTE PATIENT RECEIVED IN BED, RESTING. PT IS AWAKE, ALERT AND ORIENTED. ABLE TO MAKE NEEDS KNOWN. PT DENIES PAIN AT THIS TIME. PT IS SINUS RHYTHM ON TELE MONITOR. RESPIRATIONS ARE EVEN AND UNLABORED SATING WELL ON 2L N/C. NO S/S OF RESPIRATORY DISTRESS OR SOB. [place] CATHETER DRAINING TO GRAVITY. RIGHT CHEST TUBE CLAMPED. LEFT CHEST TUBE DRAINING TO GRAVITY. IV SITE FLUSHED, PATENT. DRESSING C/D/I. SKIN IS WARM AND DRY TO TOUCH. SAFETY PRECAUTIONS IN PLACE, BED IN LOCKED, LOW POSITION WITH TWO BED RAILS UP. CALL LIGHT AND BELONGINGS WITHIN EASY REACH. WILL CONTINUE TO MONITOR.
--- NOTE | 2016-08-26 07:15 | NUR ---
RN INITIAL NOTE PATIENT RECEIVED IN BED, RESTING. PT IS EASILY AROUSED, OBEYS COMMANDS AND ANSWERS QUESTIONS. PATIENT IS ABLE TO MAKE NEEDS KNOWN. PT DENIES PAIN AT THIS TIME. RESPIRATIONS ARE EVEN AND UNLABORED SATING WELL ON ROOM AIR. NO S/S OF RESPIRATORY DISTRESS OR SOB. [place] CATHETER DRAINING TO GRAVITY. IV SITE FLUSHED, PATENT. DRESSING C/D/I. SKIN IS WARM AND DRY TO TOUCH. SAFETY PRECAUTIONS IN PLACE, BED IN LOCKED, LOW POSITION WITH TWO BED RAILS UP. CALL LIGHT AND BELONGINGS WITHIN EASY REACH. WILL CONTINUE TO MONITOR.
[2016-08-26 08:00] VITALS: BP 134/83
[2016-08-26] MEDS: BOOST PLUS FOOD-CHOCLATE 237 ML BOX PO SCH ×3 (08:33→17:20)
[2016-08-26] MEDS: PROSOURCE / PROSTAT (PYXIS) 30 ML UDC GT SCH ×2 (08:33→17:20)
[2016-08-26] MEDS: ANASTROZOLE 1 MG TABLET PO SCH (08:34)
[2016-08-26] MEDS: ACIDOPHILUS/BULGARICUS 1 EACH TAB.CHEW PO SCH ×3 (08:34→17:21)
[2016-08-26] MEDS: MUPIROCIN OINT 2% 22 GM TUBE SCH ×2 (08:34→20:50)
[2016-08-26] MEDS: PANTOPRAZOLE 40 MG VIAL IV SCH (08:34)
[2016-08-26] MEDS: methylPREDNISolone SOD SUCC 40 MG/ML VIAL IV SCH ×3 (08:34→17:20)
[2016-08-26] MEDS: FERROUS SULFATE (325 MG) 325 MG/TAB TABLET PO SCH ×2 (08:34→17:21)
[2016-08-26] MEDS: HYDROGEL DRESSING 90 GM TUBE TP SCH (08:34)
[2016-08-26 12:00] VITALS: BP 136/83
[2016-08-26] MEDS ORDERED: K PHOS NEUTRAL 250 MG TABLET PO ONE (14:30)
[2016-08-26 16:00] VITALS: BP 127/78
--- NOTE | 2016-08-26 19:05 | NUR ---
RN OPENING NOTES: PATIENT RECEIVED IN BED, RESTING. PT IS A/O X3. PT DENIES PAIN AT THIS TIME. RESPIRATIONS ARE EVEN AND UNLABORED. PT IS ON 2LPM VIA NC AND IS TOLERATING WELL. NO S/S OF RESPIRATORY DISTRESS OR SOB. [place] CATHETER DRAINING TO GRAVITY. IV IS RENO PICC LINE AND IS FLUSHED AND PATENT. SKIN IS WARM AND DRY TO TOUCH. CALL LIGHT WITHIN PT'S REACH. BED KEPT IN LOCKED, LOWEST POSITION, AND SIDE RAILS X 2 UP. WILL CONTINUE TO MONITOR PT.
--- NOTE | 2016-08-26 19:18 | NUR ---
RN CLOSING NOTE ALL MD ORDERS CARRIED OUT. WILL GIVE REPORT TO PM RN FOR CLARENCE
[2016-08-26 20:00] VITALS: BP 134/86
[2016-08-26] MEDS: ENOXAPARIN SODIUM 40 MG/0.4 ML DISP.SYRIN SQ SCH (20:51)
[2016-08-27] VITALS: BP 118/78
[2016-08-27] MEDS: PIPERACILLIN /TAZOBACTAM 3.375 G in IV D5W 50 ML IV SCH ×5 (00:29→23:03)
[2016-08-27 04:00] VITALS: BP 125/85
[2016-08-27] MEDS: METRONIDAZOLE 500MG/ NS 100ML 500 MG in PREMIX 1 EA IV SCH ×3 (04:09→21:10)
[2016-08-27] MEDS ORDERED: IV NS 0.9% 250 ML IV ONE ×2 (04:49→11:31)
[2016-08-27] MEDS ORDERED: IV SET PRIMARY PUMP SET 1 EA INFUS.SET MC ONE (04:49)
[2016-08-27] MEDS: VANCOMYCIN HCL 125 MG/2.5 ML ORAL.SUSP PO SCH ×4 (05:22→23:03)
--- NOTE | 2016-08-27 07:13 | NUR ---
RN CLOSING NOTES: ALL NEEDS WERE ATTENDED AND ANTICIPATED FOR. PATIENT IS IN BED RESTING. PT IS A/O X3. PT DENIES PAIN AT THIS TIME. ENDORSED TO AM NURSE THAT VANCO TROUGH IS PENDING AT THE MOMENT. RESPIRATIONS ARE EVEN AND UNLABORED. PT IS ON 2LPM VIA NC AND IS TOLERATING WELL. NO S/S OF RESPIRATORY DISTRESS OR SOB. [place] CATHETER DRAINING TO GRAVITY. OUTPUT WAS 1300ML. IV IS RENO PICC LINE AND IS FLUSHED AND PATENT. SKIN IS WARM AND DRY TO TOUCH. CALL LIGHT WITHIN PT'S REACH. BED KEPT IN LOCKED, LOWEST POSITION, AND SIDE RAILS X 2 UP. ENDORSED TO AM NURSE FOR CLARECNE.
--- NOTE | 2016-08-27 07:15 | NUR ---
RN INITIAL NOTE PT RECEIVED IN BED, RESTING. EASILY AROUSED, ORIENTED. ABLE TO MAKE NEEDS KNOWN. PATIENT IS SINUS RHYTHM ON TELE MONITOR WITH HEART RATE IN THE 100'S. RESPIRATIONS ARE EVEN AND UNLABORED. NO S/S OF SOB OR RESPIRATORY DISTRESS. SATING WELL ON 2L NASAL CANULA. [place] CATHETER DRAINING TO GRAVITY. IV SITE FLUSHED, PATENT. DRESSING C/D/I. SKIN IS WARM AND DRY TO TOUCH. SAFETY PRECAUTIONS IN PLACE, BED IN LOW, LOCKED POSITION WITH TWO SIDE RAILS UP. CALL LIGHT AND BELONGINGS WITHIN EASY REACH. WILL MONITOR CLOSELY.
--- NOTE | 2016-08-27 07:15 | NUR ---
PRINTING MACHINE MECHANIC CLOSING NOTES: ON TELE AND READING IS SINUS TACHY 101.
[2016-08-27 07:31] LABS: BASOPHILS % (AUTO) 0.1 % (0.0-2.0); EOSINOPHILS % (AUTO) 0.2 % (0.0-6.0); HEMATOCRIT 32 % (33-45); HEMOGLOBIN 10.8 g/dL (11.5-14.8); LYMPHOCYTES # (AUTO) 0.6 /CMM (0.8-4.8); LYMPHOCYTES % (AUTO) 3.1 % (20.0-44.0); MEAN CORPUSCULAR HEMOGLOBIN 31 PG (26.0-33.0); MEAN CORPUSCULAR HGB CONC 34 g/dl (31.0-36.0); MEAN CORPUSCULAR VOLUME 90 fL (82-100); MONOCYTES # (AUTO) 0.9 /CMM (0.1-1.30); MONOCYTES % (AUTO) 4.8 % (2.0-12.0); NEUTROPHILS # (AUTO) 17.6 /CMM (1.8-8.9); NEUTROPHILS % (AUTO) 91.8 % (43.0-81.0); PLATELET COUNT (AUTO) 290 /CMM (150-450); RDW COEFFICIENT OF VARIATION 18.8 (11.5-15.0); RED BLOOD CELL COUNT(AUTO) 3.51 MIL/uL (4.0-5.2); WHITE BLOOD COUNT (AUTO) 19.2 K/uL (4.3-11.0)
[2016-08-27 07:39] LABS: CREATININE 0.2 mg/dL (0.6-1.3); MAGNESIUM 2.1 mg/dL (1.8-2.4); PHOSPHORUS 2.5 mg/dL (2.5-4.9); POTASSIUM 3.5 mmol/L (3.5-5.1)
[2016-08-27 08:00] VITALS: BP_SYST 126; BP_DIAS 67; BP_DIAS 79
[2016-08-27] MEDS: PROSOURCE / PROSTAT (PYXIS) 30 ML UDC GT SCH ×2 (09:05→16:43)
[2016-08-27] MEDS: PANTOPRAZOLE 40 MG VIAL IV SCH (09:05)
[2016-08-27] MEDS: ACIDOPHILUS/BULGARICUS 1 EACH TAB.CHEW PO SCH ×3 (09:05→16:42)
[2016-08-27] MEDS: Z GUARD REMEDY 2 OZ OINT TP PRN (09:05)
[2016-08-27] MEDS: HYDROGEL DRESSING 90 GM TUBE TP SCH (09:06)
[2016-08-27] MEDS: ANASTROZOLE 1 MG TABLET PO SCH (09:06)
[2016-08-27] MEDS: BOOST PLUS FOOD-CHOCLATE 237 ML BOX PO SCH ×3 (09:06→16:45)
[2016-08-27] MEDS: methylPREDNISolone SOD SUCC 40 MG/ML VIAL IV SCH ×3 (09:06→16:42)
[2016-08-27] MEDS: FERROUS SULFATE (325 MG) 325 MG/TAB TABLET PO SCH ×2 (09:06→16:42)
[2016-08-27] MEDS: MUPIROCIN OINT 2% 22 GM TUBE SCH ×2 (09:06→21:12)
[2016-08-27] MEDS: VANCOMYCIN 0.75 GM in IV D5W 250 ML IV SCH ×3 (09:12→23:03)
[2016-08-27 12:00] VITALS: BP 139/90
[2016-08-27 16:00] VITALS: BP 116/79
[2016-08-27 20:00] VITALS: BP 121/70
--- NOTE | 2016-08-27 20:00 | NUR ---
RECEIVED PATIENT IN BED, ALERT AND ORIENTED, PLEASANT, CALM AND COOPERATIVE ABLE TO LET HER NEEDS KNOWN. VSS, AFEBRILE, DENIES PAIN, NO DISTRESS NOTED SATURATION >92% ON 2 L NC EDUCATION/INSTRUCTIONS GIVEN, QUESTIONS ANSWERED. CALL LIGHT WITHIN REACH ENCOURAGE TO CALL FOR ASSISTANCE. CONTINUE TO MONITOR
[2016-08-27] MEDS: ENOXAPARIN SODIUM 40 MG/0.4 ML DISP.SYRIN SQ SCH (21:09)
[2016-08-28] VITALS: BP 123/83
[2016-08-28 04:00] VITALS: BP 124/80
[2016-08-28] MEDS: METRONIDAZOLE 500MG/ NS 100ML 500 MG in PREMIX 1 EA IV SCH ×3 (04:02→21:26)
[2016-08-28] MEDS: VANCOMYCIN HCL 125 MG/2.5 ML ORAL.SUSP PO SCH ×4 (05:09→23:32)
[2016-08-28] MEDS: PIPERACILLIN /TAZOBACTAM 3.375 G in IV D5W 50 ML IV SCH ×3 (05:09→18:41)
[2016-08-28] MEDS: VANCOMYCIN 0.75 GM in IV D5W 250 ML IV SCH ×3 (06:19→23:07)
[2016-08-28 06:30] LABS: BASOPHILS % (AUTO) 0.1 % (0.0-2.0); HEMATOCRIT 31 % (33-45); HEMOGLOBIN 10.6 g/dL (11.5-14.8); LYMPHOCYTES # (AUTO) 0.5 /CMM (0.8-4.8); LYMPHOCYTES % (AUTO) 2.8 % (20.0-44.0); MEAN CORPUSCULAR HEMOGLOBIN 31 PG (26.0-33.0); MEAN CORPUSCULAR HGB CONC 34 g/dl (31.0-36.0); MEAN CORPUSCULAR VOLUME 90 fL (82-100); MONOCYTES # (AUTO) 0.9 /CMM (0.1-1.30); MONOCYTES % (AUTO) 4.8 % (2.0-12.0); NEUTROPHILS # (AUTO) 17.3 /CMM (1.8-8.9); NEUTROPHILS % (AUTO) 92.3 % (43.0-81.0); PLATELET COUNT (AUTO) 291 /CMM (150-450); RDW COEFFICIENT OF VARIATION 19.1 (11.5-15.0); RED BLOOD CELL COUNT(AUTO) 3.46 MIL/uL (4.0-5.2); WHITE BLOOD COUNT (AUTO) 18.8 K/uL (4.3-11.0)
[2016-08-28 07:00] LABS: CALCIUM, SERUM 7.8 mg/dL (8.5-10.1); CREATININE 0.2 mg/dL (0.6-1.3); MAGNESIUM 2.1 mg/dL (1.8-2.4); POTASSIUM 3.3 mmol/L (3.5-5.1)
--- NOTE | 2016-08-28 07:30 | NUR ---
RECEIVED PATIENT IN BED, ALERT AND ORIENTED, PLEASANT, CALM AND COOPERATIVE ABLE TO MAKE NEEDS KNOWN.NO C/O PAIN, NO DISTRESS NOTED SATURATION >92% ON 2 L NC EDUCATION/INSTRUCTIONS GIVEN, QUESTIONS ANSWERED. CALL LIGHT WITHIN REACH ENCOURAGE TO CALL FOR ASSISTANCE. CONTINUE TO MONITOR
[2016-08-28 08:00] VITALS: BP 133/81
[2016-08-28] MEDS: BOOST PLUS FOOD-CHOCLATE 237 ML BOX PO SCH ×3 (08:22→17:11)
[2016-08-28] MEDS: PROSOURCE / PROSTAT (PYXIS) 30 ML UDC GT SCH ×2 (08:23→17:02)
[2016-08-28] MEDS: ACIDOPHILUS/BULGARICUS 1 EACH TAB.CHEW PO SCH ×3 (08:24→17:03)
[2016-08-28] MEDS: FERROUS SULFATE (325 MG) 325 MG/TAB TABLET PO SCH ×2 (08:24→17:03)
[2016-08-28] MEDS: PANTOPRAZOLE 40 MG VIAL IV SCH (08:24)
[2016-08-28] MEDS: ANASTROZOLE 1 MG TABLET PO SCH (08:24)
[2016-08-28] MEDS: methylPREDNISolone SOD SUCC 40 MG/ML VIAL IV SCH ×3 (08:24→17:03)
[2016-08-28] MEDS: MUPIROCIN OINT 2% 22 GM TUBE SCH ×2 (09:00→21:28)
[2016-08-28] MEDS: HYDROGEL DRESSING 90 GM TUBE TP SCH (09:00)
[2016-08-28] MEDS ORDERED: POTASSIUM CHLORIDE 20 MEQ POWDER PACKET GT ONE (11:30)
[2016-08-28 12:00] VITALS: BP 130/78
[2016-08-28 16:00] VITALS: BP 112/72
[2016-08-28 20:00] VITALS: BP 126/70
--- NOTE | 2016-08-28 20:00 | NUR ---
Received patient from previous shift RN,Balwinder.Patient A/O X 4.VS stable.Respiration even and unlabored.O2 2L NC on and well tolerated.Saturation 98%.With Right and Left Pleurx CT to drainage system.Both sites intact.Encouraged to cough and deep breath.Denies pain or sob.FC draining well. Contact isolation for mrsa nares,c diff and acinetobacter B implemented.Turned and repositioned to comfort.
[2016-08-28] MEDS: ENOXAPARIN SODIUM 40 MG/0.4 ML DISP.SYRIN SQ SCH (21:27)
--- NOTE | 2016-08-28 22:30 | NUR ---
Received call from Compensation Consultant,STEPHANIE from [facility] that they are expecting patient to be transferred there [facility].Per AM shift RN patient possible D/C in am no mention about [facility].Per patient she refused to go there.She wants to go to [facility].
[2016-08-28] MEDS ORDERED: SECONDARY IV SET 1 EA INFUS.SET MC ONE (23:45)
[2016-08-29] MEDS: PIPERACILLIN /TAZOBACTAM 3.375 G in IV D5W 50 ML IV SCH ×4 (00:01→18:28)
[2016-08-29 04:00] VITALS: BP 127/86
[2016-08-29] MEDS: METRONIDAZOLE 500MG/ NS 100ML 500 MG in PREMIX 1 EA IV SCH ×3 (04:32→20:50)
[2016-08-29] MEDS: VANCOMYCIN HCL 125 MG/2.5 ML ORAL.SUSP PO SCH ×3 (05:51→18:29)
[2016-08-29 06:14] LABS: CALCIUM, SERUM 8.1 mg/dL (8.5-10.1); CHLORIDE 103 mmol/L (98-107); CREATININE 0.2 mg/dL (0.6-1.3); GLUCOSE 142 mg/dL (74-106); MAGNESIUM 2.3 mg/dL (1.8-2.4); POTASSIUM 3.7 mmol/L (3.5-5.1); SODIUM SERUM 140 mmol/L (136-145); UREA NITROGEN, BLOOD 9 mg/dL (7-18)
[2016-08-29 06:18] LABS: EOSINOPHILS % (AUTO) 0.1 % (0.0-6.0); HEMATOCRIT 32 % (33-45); HEMOGLOBIN 10.7 g/dL (11.5-14.8); LYMPHOCYTES # (AUTO) 0.6 /CMM (0.8-4.8); LYMPHOCYTES % (AUTO) 2.8 % (20.0-44.0); MEAN CORPUSCULAR HEMOGLOBIN 30 PG (26.0-33.0); MEAN CORPUSCULAR HGB CONC 34 g/dl (31.0-36.0); MEAN CORPUSCULAR VOLUME 91 fL (82-100); MONOCYTES # (AUTO) 0.7 /CMM (0.1-1.30); MONOCYTES % (AUTO) 3.4 % (2.0-12.0); NEUTROPHILS # (AUTO) 18.6 /CMM (1.8-8.9); NEUTROPHILS % (AUTO) 93.7 % (43.0-81.0); PLATELET COUNT (AUTO) 327 /CMM (150-450); RDW COEFFICIENT OF VARIATION 19.1 (11.5-15.0); RED BLOOD CELL COUNT(AUTO) 3.52 MIL/uL (4.0-5.2); WHITE BLOOD COUNT (AUTO) 19.9 K/uL (4.3-11.0)
--- NOTE | 2016-08-29 06:44 | NUR ---
Patient resting.VS stable.No significant change noted all throughout the shift.All due medications administered.Turned and repositioned.Lab just called AM lab CO2 42.Patient in no distress.Will endorse to AM shift RN for continuity of care.
[2016-08-29 06:57] LABS: CARBON DIOXIDE 42 mmol/L (21-32)
--- NOTE | 2016-08-29 07:30 | NUR ---
RECEIVED PATIENT SLEEPING IN BED, A/O, PLEASANT, CALM AND COOPERATIVE ABLE TO MAKE NEEDS KNOWN.NO C/O PAIN, NO DISTRESS NOTED SATURATION >92% ON 2 L NC EDUCATION/INSTRUCTIONS GIVEN, QUESTIONS ANSWERED. CALL LIGHT WITHIN REACH ENCOURAGE TO CALL FOR ASSISTANCE. CONTINUE TO MONITOR
[2016-08-29 08:00] VITALS: BP 136/88
[2016-08-29] MEDS: BOOST PLUS FOOD-CHOCLATE 237 ML BOX PO SCH ×3 (08:00→17:27)
[2016-08-29] MEDS: VANCOMYCIN 0.75 GM in IV D5W 250 ML IV SCH ×3 (08:57→22:51)
[2016-08-29] MEDS: methylPREDNISolone SOD SUCC 40 MG/ML VIAL IV SCH ×3 (08:58→16:11)
[2016-08-29] MEDS: ANASTROZOLE 1 MG TABLET PO SCH (08:58)
[2016-08-29] MEDS: PANTOPRAZOLE 40 MG VIAL IV SCH (08:58)
[2016-08-29] MEDS: FERROUS SULFATE (325 MG) 325 MG/TAB TABLET PO SCH ×2 (08:58→16:10)
[2016-08-29] MEDS: PROSOURCE / PROSTAT (PYXIS) 30 ML UDC GT SCH ×2 (08:58→16:10)
[2016-08-29] MEDS: ACIDOPHILUS/BULGARICUS 1 EACH TAB.CHEW PO SCH ×3 (08:58→16:10)
[2016-08-29] MEDS: MUPIROCIN OINT 2% 22 GM TUBE SCH ×2 (09:00→20:50)
[2016-08-29] MEDS: HYDROGEL DRESSING 90 GM TUBE TP SCH (09:00)
[2016-08-29 09:57] LABS: BAND % (MANUAL) 1 % (0.0-5.0); LYMPHOCYTES % (MANUAL) 6 % (16-48); MONOCYTES % (MANUAL) 6 % (0-11.0); NEUTROPHILS % (MANUAL) 87 (42-76)
[2016-08-29 16:00] VITALS: BP 128/84
--- NOTE | 2016-08-29 19:35 | NUR ---
MS1 RN NOTES RECEIVED RESTING COMFORTABLY ON BED,A/O X3-4,BREATHING NON LABORED,O2 IN USED AT 2L/NC.WITH RIGHT PLEUREX DRAIN CLAMPED.LEFT PLEUREX DRAIN TO DRAINAGE BAG DRAINING CLEAR OUTPUT.WITH RIGHT UPPER ARM PICC LINE FOR MEDS,NS AT TKO RATE.REFUSED DVT PUMP FOR NOW.CLAIMED SHES BEEN DOING EXERCISE ON HER LOWER LEGS.LEFT UPPER CHEST WOUND WITH XEROFORM GAUZE NOTES.WILL CHANGE DRESSING IN A WHILE.INCONTINENT OF URINE.ISOLATION PRECAUTION FOR C-DIFF.MRSA NARES,ACINO BACTER LEFT BREAST WOUND.CALL LIGHT IN REACH,NEEDS ANTICIPATED.
[2016-08-29 20:00] VITALS: BP_SYST 122; BP_SYST 133; BP_DIAS 70; BP_DIAS 92
--- NOTE | 2016-08-29 20:30 | NUR ---
MS1 RN NOTES PM CARE RENDERED BY MARIFER GONSALVES,TOLERATED WELL.DRESSING CHANGE DONE LEFT BREAST WITH XEROFORM COVERED WITH ABD.WILL CONTINUE TO MONITOR STATUS.
[2016-08-29] MEDS: ENOXAPARIN SODIUM 40 MG/0.4 ML DISP.SYRIN SQ SCH (20:51)
--- NOTE | 2016-08-29 23:00 | NUR ---
MS1 RN NOTES DUE VANCOMYCIN IVPB HUNG
[2016-08-30] VITALS (7 sets, daily range): BP systolic 115–147; BP diastolic 79–92
--- NOTE | 2016-08-30 | NUR ---
MS1 RN NOTES DUE VANCOCIN 250MG ORAL SOLUTION GIVEN SCHEDULED,DUE ZOSYN 3.375GM IVPB GIOVANNI.
[2016-08-30] MEDS: VANCOMYCIN HCL 125 MG/2.5 ML ORAL.SUSP PO SCH ×5 (00:06→23:07)
[2016-08-30] MEDS: PIPERACILLIN /TAZOBACTAM 3.375 G in IV D5W 50 ML IV SCH ×5 (00:06→23:07)
[2016-08-30] MEDS ORDERED: IV NS 0.9% 250 ML IV ONE (05:00)
--- NOTE | 2016-08-30 05:00 | NUR ---
MS1 RN NOTES DUE FLAGYL 500 MG IVPB HUNG
[2016-08-30] MEDS: METRONIDAZOLE 500MG/ NS 100ML 500 MG in PREMIX 1 EA IV SCH ×3 (05:01→22:46)
--- NOTE | 2016-08-30 06:19 | NUR ---
MS1 RN NOTES DUE ZOSYN 3.375GM IVPB HUNG
[2016-08-30] MEDS: VANCOMYCIN 0.75 GM in IV D5W 250 ML IV SCH ×3 (06:51→23:05)
[2016-08-30 08:12] LABS: EOSINOPHILS % (AUTO) 0.2 % (0.0-6.0); HEMATOCRIT 32 % (33-45); HEMOGLOBIN 10.9 g/dL (11.5-14.8); LYMPHOCYTES # (AUTO) 0.7 /CMM (0.8-4.8); LYMPHOCYTES % (AUTO) 4.1 % (20.0-44.0); MEAN CORPUSCULAR HEMOGLOBIN 31 PG (26.0-33.0); MEAN CORPUSCULAR HGB CONC 34 g/dl (31.0-36.0); MEAN CORPUSCULAR VOLUME 91 fL (82-100); MONOCYTES # (AUTO) 0.2 /CMM (0.1-1.30); MONOCYTES % (AUTO) 1.4 % (2.0-12.0); NEUTROPHILS # (AUTO) 15.6 /CMM (1.8-8.9); NEUTROPHILS % (AUTO) 94.3 % (43.0-81.0); PLATELET COUNT (AUTO) 300 /CMM (150-450); RDW COEFFICIENT OF VARIATION 18.8 (11.5-15.0); RED BLOOD CELL COUNT(AUTO) 3.55 MIL/uL (4.0-5.2); WHITE BLOOD COUNT (AUTO) 16.6 K/uL (4.3-11.0)
[2016-08-30 08:38] LABS: CALCIUM, SERUM 7.9 mg/dL (8.5-10.1); CREATININE 0.3 mg/dL (0.6-1.3); PHOSPHORUS 2.5 mg/dL (2.5-4.9); POTASSIUM 3.1 mmol/L (3.5-5.1)
[2016-08-30] MEDS: MUPIROCIN OINT 2% 22 GM TUBE SCH ×2 (10:23→22:46)
[2016-08-30] MEDS: PROSOURCE / PROSTAT (PYXIS) 30 ML UDC GT SCH ×2 (10:24→18:33)
[2016-08-30] MEDS: FERROUS SULFATE (325 MG) 325 MG/TAB TABLET PO SCH ×2 (10:24→18:34)
[2016-08-30] MEDS: ANASTROZOLE 1 MG TABLET PO SCH (10:24)
[2016-08-30] MEDS: methylPREDNISolone SOD SUCC 40 MG/ML VIAL IV SCH ×3 (10:24→18:33)
[2016-08-30] MEDS: ACIDOPHILUS/BULGARICUS 1 EACH TAB.CHEW PO SCH ×3 (10:24→18:34)
[2016-08-30] MEDS: HYDROGEL DRESSING 90 GM TUBE TP SCH (10:24)
[2016-08-30] MEDS: PANTOPRAZOLE 40 MG VIAL IV SCH (10:24)
[2016-08-30] MEDS: BOOST PLUS FOOD-CHOCLATE 237 ML BOX PO SCH ×3 (10:25→18:34)
[2016-08-30] MEDS ORDERED: POTASSIUM CHLORIDE 20 MEQ TAB.PRT.SR PO SCH (11:30)
[2016-08-30] MEDS: POTASSIUM CHLORIDE 20 MEQ POWDER PACKET PO SCH ×2 (14:23→16:14)
--- NOTE | 2016-08-30 19:30 | NUR ---
MS RN INITIAL NOTE RECEIVED REPORT FROM HUONG ALY. PT IN BED. A/A/O X4. LUNG SOUNDS DIMINISHED WITH BILATERAL PLEURA-X DRAINS, LEFT DRAIN IS CONTINUOS AND RIGHT IS DAILY WITH VACUTAINER. PER PATIENT AND DAY TIME NURSE PT HAS BEEN LEAVING VACUTAINER IN FOR 2-3 HRS WITHOUT COMPLICATIONS. INSTRUCTED PATIENT THAT I WOULD DISCUSS WITH CHARGE NURSE AND DR GUEVARA ABOUT THE USE OF THE VACUTAINER. PATIENT VERBALIZED UNDERSTANDING. VACUTAINER OUTPUT WAS 250CC ON THE RIGHT SIDE. LUNG SOUNDS DIMINISHED, ABSENT RIGHT LOWER LOBE. BOWEL SOUNDS PRESENT. [place] D/C'D BY DAY NURSE, PATIENT REFUSED TO HAVE NEW [place] PLACED AT THIS TIME. PULSES PRESENT. PATIENT IS ABLE TO MOVE ALL EXTREMITIES. IV PATENT AND INTACT. SACRAL WOUND NOTED. INSTRUCTED PATIENT ON THE IMPORTANCE OF REPOSITIONING. BED IN LOW LOCKED POSITION, CALL LIGHT WITHIN REACH. WILL CONTINUE TO MONITOR.
[2016-08-30] MEDS: ENOXAPARIN SODIUM 40 MG/0.4 ML DISP.SYRIN SQ SCH (22:47)
--- NOTE | 2016-08-30 22:49 | NUR ---
MS RN- MEDICATION ADMINISTRATION MEDICATIONS WERE SCANNED ON TIME AND ADMINISTERED. WHEN REFRESHED, MEDS WERE PINK. LOVENOX AJ BAR CODE DUE TO RUINED BAR CODE. BACTROBAN AND FLAGYL RESCANNED.
[2016-08-30] MEDS ORDERED: SECONDARY IV SET 1 EA INFUS.SET MC ONE (22:58)
[2016-08-31 04:00] VITALS: BP 128/87
[2016-08-31] MEDS: METRONIDAZOLE 500MG/ NS 100ML 500 MG in PREMIX 1 EA IV SCH ×3 (05:15→20:43)
[2016-08-31] MEDS: VANCOMYCIN HCL 125 MG/2.5 ML ORAL.SUSP PO SCH ×4 (05:50→23:31)
[2016-08-31] MEDS: PIPERACILLIN /TAZOBACTAM 3.375 G in IV D5W 50 ML IV SCH ×4 (05:55→23:31)
[2016-08-31] MEDS: VANCOMYCIN 0.75 GM in IV D5W 250 ML IV SCH ×3 (07:14→19:13)
[2016-08-31 07:59] LABS: CALCIUM, SERUM 8.2 mg/dL (8.5-10.1); CREATININE 0.2 mg/dL (0.6-1.3); POTASSIUM 3.5 mmol/L (3.5-5.1)
[2016-08-31 08:00] VITALS: BP 129/87
[2016-08-31] MEDS: ACIDOPHILUS/BULGARICUS 1 EACH TAB.CHEW PO SCH ×3 (09:50→16:29)
[2016-08-31] MEDS: methylPREDNISolone SOD SUCC 40 MG/ML VIAL IV SCH ×3 (09:50→16:28)
[2016-08-31] MEDS: FERROUS SULFATE (325 MG) 325 MG/TAB TABLET PO SCH ×2 (09:50→16:29)
[2016-08-31] MEDS: PANTOPRAZOLE 40 MG VIAL IV SCH (09:50)
[2016-08-31] MEDS: ANASTROZOLE 1 MG TABLET PO SCH (09:50)
[2016-08-31] MEDS: PROSOURCE / PROSTAT (PYXIS) 30 ML UDC GT SCH ×2 (09:50→16:29)
[2016-08-31] MEDS: MUPIROCIN OINT 2% 22 GM TUBE SCH ×2 (09:51→20:44)
[2016-08-31] MEDS: BOOST PLUS FOOD-CHOCLATE 237 ML BOX PO SCH ×3 (09:51→16:29)
[2016-08-31] MEDS: HYDROGEL DRESSING 90 GM TUBE TP SCH (09:52)
[2016-08-31 16:00] VITALS: BP_SYST 112; BP_SYST 129; BP_SYST 130; BP_DIAS 45; BP_DIAS 85; BP_DIAS 87
--- NOTE | 2016-08-31 19:30 | NUR ---
MS RN NOTE RECEIVED PATIENT IN BED, AWAKE ALERT AND ORIENTED. RECEIVING 2L O2 VIA NC. NO RESPIRATORY DISTRESS OR SOB NOTED. HOB ELEVATED. PLEURA X TO LEFT SIDE INTACT. DRAINING WELL TO COLLECTION BAG. PLEURA X TO RIGHT SIDE INTACT, WITH NO DRAINAGE AT THIS TIME. WOUND CARE PERFORMED. PICTURES TAKEN AND PLACED IN CHART. BED LOCKED AND ON LOWEST POSITION. SIDE RAILS UP, CALL LIGHT WITHIN REACH. WILL CONTINUE TO MONITOR.
--- NOTE | 2016-08-31 19:42 | NUR ---
For day shift Pt pleurax drain to L side drained 350cc and R side output was 300cc.
[2016-08-31 20:00] VITALS: BP 130/85
[2016-08-31] MEDS: ENOXAPARIN SODIUM 40 MG/0.4 ML DISP.SYRIN SQ SCH (20:44)
[2016-09-01] MEDS: METRONIDAZOLE 500MG/ NS 100ML 500 MG in PREMIX 1 EA IV SCH ×3 (05:17→21:19)
[2016-09-01] MEDS: VANCOMYCIN HCL 125 MG/2.5 ML ORAL.SUSP PO SCH ×3 (05:17→17:56)
[2016-09-01] MEDS: PIPERACILLIN /TAZOBACTAM 3.375 G in IV D5W 50 ML IV SCH ×3 (06:11→17:56)
--- NOTE | 2016-09-01 06:28 | NUR ---
MS RN NOTE PATIENT STABLE. NO RESPIRATORY DISTRESS OR SOB NOTED. ALL NEEDS MET AND ATTENDED TO. LEFT PLEURA X DRAINED 110 ML. PATIENT DENIES ANY PAIN OR DISCOMFORT AT THIS TIME. PERFORMED WOUND CARE ORDERED. PICTURES TAKEN AND PLACED IN CHART. PATIENT MOVED TO ROOM 111. WILL ENDORSE TO DAY SHIFT FOR CLARENCE.
[2016-09-01 06:55] LABS: CREATININE 0.2 mg/dL (0.6-1.3); POTASSIUM 3.9 mmol/L (3.5-5.1)
--- NOTE | 2016-09-01 07:10 | NUR ---
RN INITIAL NOTES: REC'D PT AWAKE ON BED, NOT IN ANY DISTRESS, A/O X4, DENIES ANY PAIN. ON O2 AT 2LPM/NC, NO SOB. B CHEST TUBE IN PLACE W/ C/D/I DRESSING - R CT, CLAMPED & L CT, CONTINUOUSLY DRAINING AT LEVEL 110. RENO PICC LINE, PATENT & INTACT W/ NO S/SX OF INFECTION/ INFILTRATION NOTED. PROVIDED COMFORT & SAFETY MEASURES. BED KEPT LOW & IN LOCKED POSITION. CALL LIGHT PLACED W/IN REACH. ISOLATION PREC OBSERVED. WILL CONTINUE TO MONITOR.
[2016-09-01 08:00] VITALS: BP 133/87
[2016-09-01] MEDS: BOOST PLUS FOOD-CHOCLATE 237 ML BOX PO SCH ×3 (08:30→17:55)
[2016-09-01] MEDS: PROSOURCE / PROSTAT (PYXIS) 30 ML UDC GT SCH ×2 (08:31→17:55)
[2016-09-01] MEDS: PANTOPRAZOLE 40 MG VIAL IV SCH (08:31)
[2016-09-01] MEDS: FERROUS SULFATE (325 MG) 325 MG/TAB TABLET PO SCH ×2 (08:31→17:56)
[2016-09-01] MEDS: methylPREDNISolone SOD SUCC 40 MG/ML VIAL IV SCH ×3 (08:31→17:55)
[2016-09-01] MEDS: Z GUARD REMEDY 2 OZ OINT TP PRN (08:31)
[2016-09-01] MEDS: ACIDOPHILUS/BULGARICUS 1 EACH TAB.CHEW PO SCH ×3 (08:31→17:56)
[2016-09-01] MEDS: ANASTROZOLE 1 MG TABLET PO SCH (08:31)
[2016-09-01] MEDS: HYDROGEL DRESSING 90 GM TUBE TP SCH (08:32)
[2016-09-01] MEDS: MUPIROCIN OINT 2% 22 GM TUBE SCH ×2 (08:40→21:00)
--- NOTE | 2016-09-01 09:00 | NUR ---
RN NOTES: PT SEEN & EXAMINED BY DR. GUEVARA W/ NO NEW ORDERS.
[2016-09-01] MEDS: VANCOMYCIN 1 GM in IV D5W 250 ML IV SCH ×2 (12:04→18:00)
[2016-09-01 16:00] VITALS: BP 138/91
--- NOTE | 2016-09-01 19:09 | NUR ---
RN CLOSING NOTES: NO ACUTE CHANGES W/IN SHIFT. NO SOB, DENIES ANY PAIN/ DISCOMFORT. RENO PICC LINE SL, KEPT PATENT & INTACT W/ NO SIGNS OF INFECTION/ INFILTRATION. B CHEST TUBE IN PLACE W/ C/D/I DRESSING: RIGHT - CLAMPED (250 CC DRAINED), DRESSING CHANGED, LEFT - CONTINUOUSLY DRAINING, DRAINED 190 CC. KEPT WELL RESTED. CALL LIGHT PLACED W/IN REACH. BED KEPT LOW & IN LOCKED POSITION. ISOLATION PRECAUTION OBSERVED. NEEDS ATTENDED. ENDORSED TO PM RN FOR CLARENCE.
[2016-09-01 20:00] VITALS: BP 121/84
[2016-09-01] MEDS: ENOXAPARIN SODIUM 40 MG/0.4 ML DISP.SYRIN SQ SCH (21:00)
[2016-09-02] MEDS: VANCOMYCIN HCL 125 MG/2.5 ML ORAL.SUSP PO SCH ×4 (00:07→17:13)
[2016-09-02] MEDS: PIPERACILLIN /TAZOBACTAM 3.375 G in IV D5W 50 ML IV SCH ×3 (00:13→12:15)
[2016-09-02] MEDS: VANCOMYCIN 1 GM in IV D5W 250 ML IV SCH ×3 (02:49→18:01)
[2016-09-02 04:00] VITALS: BP 140/84
[2016-09-02] MEDS: METRONIDAZOLE 500MG/ NS 100ML 500 MG in PREMIX 1 EA IV SCH ×3 (05:16→20:59)
[2016-09-02] MEDS ORDERED: IV SET PRIMARY PUMP SET 1 EA INFUS.SET MC ONE (06:08)
[2016-09-02] MEDS ORDERED: IV NS 0.9% 250 ML IV ONE (06:08)
[2016-09-02 06:28] LABS: EOSINOPHILS % (AUTO) 0.1 % (0.0-6.0); HEMATOCRIT 32 % (33-45); HEMOGLOBIN 10.8 g/dL (11.5-14.8); LYMPHOCYTES # (AUTO) 0.4 /CMM (0.8-4.8); LYMPHOCYTES % (AUTO) 2.3 % (20.0-44.0); MEAN CORPUSCULAR HEMOGLOBIN 31 PG (26.0-33.0); MEAN CORPUSCULAR HGB CONC 34 g/dl (31.0-36.0); MEAN CORPUSCULAR VOLUME 91 fL (82-100); MONOCYTES # (AUTO) 0.6 /CMM (0.1-1.30); MONOCYTES % (AUTO) 3.9 % (2.0-12.0); NEUTROPHILS # (AUTO) 14.4 /CMM (1.8-8.9); NEUTROPHILS % (AUTO) 93.7 % (43.0-81.0); PLATELET COUNT (AUTO) 249 /CMM (150-450); RDW COEFFICIENT OF VARIATION 19.6 (11.5-15.0); WHITE BLOOD COUNT (AUTO) 15.4 K/uL (4.3-11.0)
[2016-09-02 07:08] LABS: CALCIUM, SERUM 8.3 mg/dL (8.5-10.1); CREATININE 0.2 mg/dL (0.6-1.3); POTASSIUM 3.8 mmol/L (3.5-5.1)
--- NOTE | 2016-09-02 07:10 | NUR ---
RN NOTE RECEIVED PATIENT ON BED , AWAKE ALERT AND ORIENTED x3, ON 2L AT 2 L N/C , NO RESPIRATORY DISTRESS OR SOB NOTED. PLEURA X TO LEFT SIDE INTACT DRAINING TO GRAVITY , PLEURA X TO RIGHT SIDE INTACT WITH NO DRAINAGE AT THIS TIME. BED LOCKED AND ON LOWEST POSITION. SIDE RAILS UPx3 , CALL LIGHT WITHIN EASY REACH. WILL CONTINUE TO MONITOR PT CLOSELY AND NOTIFY MD FOR ANY SIGNIFICANT CHANGES,
[2016-09-02 08:00] VITALS: BP 138/82
[2016-09-02] MEDS: methylPREDNISolone SOD SUCC 40 MG/ML VIAL IV SCH ×3 (08:30→16:45)
[2016-09-02] MEDS: HYDROGEL DRESSING 90 GM TUBE TP SCH (08:30)
[2016-09-02] MEDS: FERROUS SULFATE (325 MG) 325 MG/TAB TABLET PO SCH ×2 (08:31→16:45)
[2016-09-02] MEDS: PANTOPRAZOLE 40 MG VIAL IV SCH (08:31)
[2016-09-02] MEDS: BOOST PLUS FOOD-CHOCLATE 237 ML BOX PO SCH ×3 (08:31→16:47)
[2016-09-02] MEDS: PROSOURCE / PROSTAT (PYXIS) 30 ML UDC GT SCH ×2 (08:31→16:47)
[2016-09-02] MEDS: ACIDOPHILUS/BULGARICUS 1 EACH TAB.CHEW PO SCH ×3 (08:31→16:45)
[2016-09-02] MEDS: ANASTROZOLE 1 MG TABLET PO SCH (08:31)
[2016-09-02] MEDS: MUPIROCIN OINT 2% 22 GM TUBE SCH ×2 (08:32→21:02)
[2016-09-02] MEDS ORDERED: SECONDARY IV SET 1 EA INFUS.SET MC ONE ×2 (12:15→13:29)
[2016-09-02 16:00] VITALS: BP 139/88
--- NOTE | 2016-09-02 18:44 | NUR ---
RN NOTES PT STABLE, RESPIRATION EVEN AND UNLABORED ,R SIDE PLEUR X IS DRAINING TO GRAVITY AT THIS TIME , LEFT SIDE PLEUR X DRAINING TO A BAG TO GRAVITY , 150CC DRAINING NOTED ON THIS SHIFT, R UPPER ARM PICC LINE CDI, SR UP x3, CALL LIGHT WITHIN EASY REACH, NO SIGNIFICANT CHANGES NOTED ON THIS SHIFT .
[2016-09-02 20:00] VITALS: BP 124/73
[2016-09-02] MEDS: ENOXAPARIN SODIUM 40 MG/0.4 ML DISP.SYRIN SQ SCH (20:59)
[2016-09-03] MEDS: VANCOMYCIN HCL 125 MG/2.5 ML ORAL.SUSP PO SCH ×5 (00:05→23:24)
[2016-09-03] MEDS: VANCOMYCIN 1 GM in IV D5W 250 ML IV SCH ×3 (03:01→18:24)
[2016-09-03 04:00] VITALS: BP 118/73
[2016-09-03] MEDS: METRONIDAZOLE 500MG/ NS 100ML 500 MG in PREMIX 1 EA IV SCH ×3 (05:11→20:34)
[2016-09-03] MEDS ORDERED: IV NS 0.9% 250 ML IV ONE (05:56)
[2016-09-03 07:01] LABS: CALCIUM, SERUM 8.1 mg/dL (8.5-10.1); CREATININE 0.1 mg/dL (0.6-1.3)
--- NOTE | 2016-09-03 07:10 | NUR ---
RN INITIAL NOTES: REC'D PT ASLEEP ON BED, NOT IN ANY DISTRESS, EASILY AROUSABLE, A/O X3-4, DENIES ANY PAIN/DISCOMFORT. ON O2 AT 2LPM/NC, NO SOB. B CHEST TUBE IN PLACE W/ C/D/I DRESSING - R CT, CLAMPED & L CT, ON CONT DRAINAGE AT LEVEL 100 CC. RENO PICC LINE, PATENT & INTACT W/ NO S/SX OF INFECTION/ INFILTRATION NOTED. PROVIDED COMFORT & SAFETY MEASURES. BED KEPT LOW & IN LOCKED POSITION. CALL LIGHT PLACED W/IN REACH. ISOLATION PREC OBSERVED. WILL CONTINUE TO MONITOR.
[2016-09-03 08:00] VITALS: BP 125/83
[2016-09-03] MEDS: PROSOURCE / PROSTAT (PYXIS) 30 ML UDC GT SCH ×2 (08:15→17:19)
[2016-09-03] MEDS: ANASTROZOLE 1 MG TABLET PO SCH (08:15)
[2016-09-03] MEDS: BOOST PLUS FOOD-CHOCLATE 237 ML BOX PO SCH ×3 (08:15→17:19)
[2016-09-03] MEDS: PANTOPRAZOLE 40 MG VIAL IV SCH (08:15)
[2016-09-03] MEDS: methylPREDNISolone SOD SUCC 40 MG/ML VIAL IV SCH ×3 (08:15→17:19)
[2016-09-03] MEDS: HYDROGEL DRESSING 90 GM TUBE TP SCH (08:16)
[2016-09-03] MEDS: Z GUARD REMEDY 2 OZ OINT TP PRN (08:16)
[2016-09-03] MEDS: ACIDOPHILUS/BULGARICUS 1 EACH TAB.CHEW PO SCH ×3 (08:16→18:24)
[2016-09-03] MEDS: FERROUS SULFATE (325 MG) 325 MG/TAB TABLET PO SCH ×2 (08:16→17:19)
[2016-09-03] MEDS: MUPIROCIN OINT 2% 22 GM TUBE SCH ×2 (08:17→20:37)
--- NOTE | 2016-09-03 09:30 | NUR ---
RN NOTES: PER REQUEST TO FAX MEDICAL INFORMATION OF THE PT TO [facility] ATTN TO CRISTÓBAL THE DIRECTOR OF ADMINISTRATION. CONSENT IN.
--- NOTE | 2016-09-03 10:30 | NUR ---
RN NOTES: PT SEEN & EXAMINED BY VICTOR HUGO GUTIERREZ.
[2016-09-03] MEDS ORDERED: SECONDARY IV SET 1 EA INFUS.SET MC ONE (12:00)
--- NOTE | 2016-09-03 14:30 | NUR ---
RN NOTES: CALL CM [id number] C/O LEE TO ARRANGE PLEURX DRAIN SUPPLY ORDERS FOR 1 MONTH, DAILY USE FOR THE PT FROM [facility] TEL# . VICTOR HUGO GUTIERREZ MADE AWARE.
[2016-09-03 16:00] VITALS: BP 116/82
--- NOTE | 2016-09-03 16:30 | NUR ---
RN NOTES: ARMOND FLOOD SPOKE W/ PT & AT BEDSIDE REGARDING DCP.
--- NOTE | 2016-09-03 19:18 | NUR ---
RN CLOSING NOTES: NO ACUTE CHANGES W/IN SHIFT. NO SOB, DENIES ANY PAIN/ DISCOMFORT. RENO PICC LINE SL, KEPT PATENT & INTACT W/ NO SIGNS OF INFECTION/ INFILTRATION. B CHEST TUBE IN PLACE W/ C/D/I DRESSING: RIGHT - CLAMPED (230 CC DRAINED), DRESSING CHANGED, LEFT - CONTINUOUSLY DRAINING, DRAINED 300 CC. KEPT WELL RESTED. CALL LIGHT PLACED W/IN REACH. BED KEPT LOW & IN LOCKED POSITION. ISOLATION PRECAUTION OBSERVED. NEEDS ATTENDED. WILL ENDORSE TO PM RN FOR CLARENCE.
--- NOTE | 2016-09-03 19:30 | NUR ---
MS ALY INITIAL NOTES RECEIVED REPORT FROM SANDRA ALY. PATIENT A/A/O X4. NO RESPIRATORY DISTRESS NOTED, LUNG SOUNDS DIMINISHED ALL BASES. ON O2 2LPM VIA NC. BOWEL SOUNDS PRESENT IN ALL QUADRANTS. URINARY INCONTINENCE, PERINEAL AREA WITH MINIMAL REDNESS, Z GUARD APPLIED. PULSES PRESENT. IV PATENT AND INTACT. RIGHT PLUERX CLAMPED AND LEFT PLUERX TO GRAVITY. BED LOCKED AND IN LOWEST POSITION, SIDE RAILS UP, CALL LIGHT WITHIN REACH. WILL CONTINUE TO MONITOR.
[2016-09-03 20:00] VITALS: BP 116/75
[2016-09-03] MEDS: ENOXAPARIN SODIUM 40 MG/0.4 ML DISP.SYRIN SQ SCH (20:35)
[2016-09-04] MEDS: VANCOMYCIN 1 GM in IV D5W 250 ML IV SCH ×4 (02:31→17:57)
[2016-09-04 04:00] VITALS: BP 124/88
[2016-09-04] MEDS ORDERED: IV NS 0.9% 250 ML IV ONE (04:03)
[2016-09-04] MEDS: METRONIDAZOLE 500MG/ NS 100ML 500 MG in PREMIX 1 EA IV SCH ×3 (04:05→21:43)
[2016-09-04] MEDS: VANCOMYCIN HCL 125 MG/2.5 ML ORAL.SUSP PO SCH ×3 (06:39→17:08)
[2016-09-04 07:07] LABS: CALCIUM, SERUM 8.2 mg/dL (8.5-10.1); CREATININE 0.1 mg/dL (0.6-1.3); POTASSIUM 3.6 mmol/L (3.5-5.1)
[2016-09-04 08:00] VITALS: BP 141/90
[2016-09-04] MEDS: ACIDOPHILUS/BULGARICUS 1 EACH TAB.CHEW PO SCH ×3 (08:13→17:08)
[2016-09-04] MEDS: BOOST PLUS FOOD-CHOCLATE 237 ML BOX PO SCH ×3 (08:13→17:08)
[2016-09-04] MEDS: ANASTROZOLE 1 MG TABLET PO SCH (08:13)
[2016-09-04] MEDS: methylPREDNISolone SOD SUCC 40 MG/ML VIAL IV SCH ×3 (08:13→17:09)
[2016-09-04] MEDS: FERROUS SULFATE (325 MG) 325 MG/TAB TABLET PO SCH ×2 (08:13→17:08)
[2016-09-04] MEDS: PROSOURCE / PROSTAT (PYXIS) 30 ML UDC GT SCH ×2 (08:13→17:09)
[2016-09-04] MEDS: PANTOPRAZOLE 40 MG VIAL IV SCH (08:14)
[2016-09-04] MEDS: HYDROGEL DRESSING 90 GM TUBE TP SCH (08:14)
[2016-09-04] MEDS: MUPIROCIN OINT 2% 22 GM TUBE SCH ×2 (08:22→21:46)
--- NOTE | 2016-09-04 08:56 | NUR ---
RN INITIAL NOTES PATIENT A/A/O X4. NO RESPIRATORY DISTRESS NOTED, LUNG SOUNDS DIMINISHED ALL BASES. ON O2 2LPM VIA NC. BOWEL SOUNDS PRESENT IN ALL QUADRANTS. URINARY AND STOOL INCONTINENCE, PERINEAL AREA WITH REDNESS, Z GUARD APPLIED. DRESSING CHANGED PULSES PRESENT. IV PATENT AND INTACT. RIGHT PLUERX CLAMPED AND LEFT PLUERX TO GRAVITY. BED LOCKED AND IN LOWEST POSITION, SIDE RAILS UP, CALL LIGHT WITHIN REACH. WILL CONTINUE TO MONITOR.
--- NOTE | 2016-09-04 09:16 | NUR ---
RN NOTE NS REMOVED FROM ACCUDOSE FOR PRIMARY IV FLUIDS
--- NOTE | 2016-09-04 10:50 | NUR ---
RN NOTE' RN CONTACTED THE LAB TO VERIFY VANCOMYCIN FOR TODAY, RN NOTIFIED IT IS OK TO ADMINISTER TODAY VANCOMYCIN. VANC TROUGH IN THE AM NURSING STAFF WILL CONTINUE TO FOLLOW .
[2016-09-04 16:00] VITALS: BP 106/68
--- NOTE | 2016-09-04 18:49 | NUR ---
RN CLOSING NOTES: NO ACUTE CHANGES W/IN SHIFT. NO SOB, DENIES ANY PAIN/ DISCOMFORT. RENO PICC LINE CURRENTLY RUNNING VANCOMYCIN , KEPT PATENT & INTACT W/ NO SIGNS OF INFECTION/ INFILTRATION. BILATERAL CHEST TUBE IN PLACE W/ C/D/I DRESSING: RIGHT - CURRENTLY DRAINING (200 CC DRAINED SO FAR), DRESSING CHANGED ON LEFT SIDE PER PATIENT REQUEST- CONTINUOUSLY DRAINING, DRAINED 275 CC THROUGHOUT THE DAY. KEPT WELL RESTED. CALL LIGHT PLACED W/IN REACH. BED KEPT LOW & IN LOCKED POSITION. ISOLATION PRECAUTION OBSERVED. NEEDS ATTENDED. WILL ENDORSE TO PM RN FOR CONTINUATION OF CARE.
--- NOTE | 2016-09-04 19:20 | NUR ---
RN JOSIAH INITIAL NOTE RECEIVED PT IN NO ACUTE DISTRESS. PT IS AWAKE AND COMFORTABLE IN BED. ABLE TO OPEN EYES, ASK FOR NEEDS, AND WALK TOLERATED. PT IS ON 2 LPM VIA NC. NO MONITOR INTACT W/ S1/S2 AUSCULTATED. DIAPER WITH X1 BM UPON RECEIVING PATIENT. SOFT DIET AND ABLE TO SWALLOW MEDICATIONS WITH LIQUIDS. LUNG SOUNDS W/ CRACKLES AND PT HAS R/L PLEURX DRAIN CLEAN DRY AND INTACT. RENO MIDLINE RUNNING TKO. CLEANED AND CALL LIGHT PLACED WITHIN REACH. ALL SAFETY AND COMFORT MEASURES ENSURED. WILL CONTINUE TO MONITOR.
[2016-09-04 20:00] VITALS: BP 129/81
[2016-09-04] MEDS: ENOXAPARIN SODIUM 40 MG/0.4 ML DISP.SYRIN SQ SCH (21:45)
[2016-09-05] MEDS: VANCOMYCIN HCL 125 MG/2.5 ML ORAL.SUSP PO SCH ×5 (00:13→23:41)
--- NOTE | 2016-09-05 02:34 | NUR ---
TROUGH LEVEL DRAWN AT 0204. TROUGH LEVEL BACK AT 0234 WITH A RESULT OF 14. OKAY TO GIVE VANCOMYCIN ORDERED FOR 0300
[2016-09-05] MEDS: VANCOMYCIN 1 GM in IV D5W 250 ML IV SCH ×2 (02:43→11:04)
[2016-09-05 04:00] VITALS: BP 136/93
[2016-09-05] MEDS: METRONIDAZOLE 500MG/ NS 100ML 500 MG in PREMIX 1 EA IV SCH ×3 (05:13→21:14)
--- NOTE | 2016-09-05 07:10 | NUR ---
RN JOSIAH CLOSING NOTE PT REMAINS IN NO ACUTE DISTRESS AT END OF SHIFT. PT DID NOT HAVE ANY SIGNIFICANT CHANGE IN CONDITION. WILL ENDORSE CARE TO AM RN FOR CONTINUITY OF CARE.
--- NOTE | 2016-09-05 07:23 | NUR ---
RN INITIAL NOTES PATIENT A/A/O X4. NO RESPIRATORY DISTRESS NOTED, LUNG SOUNDS DIMINISHED ALL BASES. ON O2 2LPM VIA NC. BOWEL SOUNDS PRESENT IN ALL QUADRANTS. URINARY AND STOOL INCONTINENCE, PERINEAL AREA WITH REDNESS, Z GUARD CLEAN DRY INTACT. DRESSING CHANGED PULSES PRESENT. IV PATENT AND INTACT. RIGHT PLUERX CLAMPED AND LEFT PLUERX TO GRAVITY. BED LOCKED AND IN LOWEST POSITION, SIDE RAILS UP, CALL LIGHT WITHIN REACH. WILL CONTINUE TO MONITOR.
[2016-09-05 07:52] LABS: HEMATOCRIT 33 % (33-45); HEMOGLOBIN 11.1 g/dL (11.5-14.8); LYMPHOCYTES # (AUTO) 0.6 /CMM (0.8-4.8); LYMPHOCYTES % (AUTO) 4.3 % (20.0-44.0); MEAN CORPUSCULAR HEMOGLOBIN 31 PG (26.0-33.0); MEAN CORPUSCULAR HGB CONC 34 g/dl (31.0-36.0); MEAN CORPUSCULAR VOLUME 91 fL (82-100); MONOCYTES # (AUTO) 0.9 /CMM (0.1-1.30); MONOCYTES % (AUTO) 6.9 % (2.0-12.0); NEUTROPHILS # (AUTO) 11.7 /CMM (1.8-8.9); NEUTROPHILS % (AUTO) 88.8 % (43.0-81.0); PLATELET COUNT (AUTO) 237 /CMM (150-450); RDW COEFFICIENT OF VARIATION 19.5 (11.5-15.0); RED BLOOD CELL COUNT(AUTO) 3.59 MIL/uL (4.0-5.2); WHITE BLOOD COUNT (AUTO) 13.2 K/uL (4.3-11.0)
[2016-09-05 08:00] VITALS: BP 131/90
[2016-09-05 08:52] LABS: CREATININE 0.1 mg/dL (0.6-1.3); POTASSIUM 3.8 mmol/L (3.5-5.1)
[2016-09-05] MEDS: MUPIROCIN OINT 2% 22 GM TUBE SCH (09:00)
[2016-09-05] MEDS: ACIDOPHILUS/BULGARICUS 1 EACH TAB.CHEW PO SCH ×3 (09:19→17:13)
[2016-09-05] MEDS: ANASTROZOLE 1 MG TABLET PO SCH (09:19)
[2016-09-05] MEDS: BOOST PLUS FOOD-CHOCLATE 237 ML BOX PO SCH ×3 (09:19→17:14)
[2016-09-05] MEDS: PANTOPRAZOLE 40 MG VIAL IV SCH (09:19)
[2016-09-05] MEDS: FERROUS SULFATE (325 MG) 325 MG/TAB TABLET PO SCH ×2 (09:19→17:13)
[2016-09-05] MEDS: methylPREDNISolone SOD SUCC 40 MG/ML VIAL IV SCH ×3 (09:19→17:13)
[2016-09-05] MEDS: PROSOURCE / PROSTAT (PYXIS) 30 ML UDC GT SCH ×2 (09:19→17:13)
[2016-09-05] MEDS: HYDROGEL DRESSING 90 GM TUBE TP SCH (09:26)
[2016-09-05 16:00] VITALS: BP 120/78
--- NOTE | 2016-09-05 18:27 | NUR ---
RN CLOSING NOTES: NO ACUTE CHANGES W/IN SHIFT. NO SOB, DENIES ANY PAIN/ DISCOMFORT. RENO PICC LINE SL , KEPT PATENT & INTACT W/ NO SIGNS OF INFECTION/ INFILTRATION. BILATERAL CHEST TUBE IN PLACE W/ C/D/I DRESSING: RIGHT - CURRENTLY DRAINING , -LEFT SIDE CHEST DRAIN - CONTINUOUSLY DRAINING, DRAINED 250 CC THROUGHOUT THE DAY. CALL LIGHT PLACED W/IN REACH. BED KEPT LOW & IN LOCKED POSITION. ISOLATION PRECAUTION OBSERVED. NEEDS ATTENDED. WILL ENDORSE TO PM RN FOR CONTINUATION OF CARE.
--- NOTE | 2016-09-05 19:20 | NUR ---
RN NOTES PT AWAKE ON BED AT BEDSIDE. AOX4 ABLE TO MAKE KNOWN NEEDS. DENIES PAIN. NO ACUTE RESP DISTRESS ON O2 2LPM VIA NC. LEFT PLEURAL DRAINAGE CONTINUE TO DRAINED WITH CLEAR COLOR. RIGHT CHEST DRAINED AT THIS TIME WITH SEROSANGUINEOUS. PT STILL WANTED TO WAIT FOR A COUPLE AN HOURS MORE BEFORE CLAMPED IT . IV SITE ON RENO MIDLINE INTACT AND PATENT WITH GOOD BLOOD RETURN. CALL LIGHT KEPT WITHIN EASY REACH. WILL CONTINUE TO MONITOR.
[2016-09-05 20:00] VITALS: BP 110/72
[2016-09-05 20:15] VITALS: BP 110/72
[2016-09-05] MEDS: ENOXAPARIN SODIUM 40 MG/0.4 ML DISP.SYRIN SQ SCH (21:14)
[2016-09-06 04:00] VITALS: BP 120/84
[2016-09-06] MEDS: VANCOMYCIN HCL 125 MG/2.5 ML ORAL.SUSP PO SCH ×3 (05:54→17:28)
[2016-09-06] MEDS: METRONIDAZOLE 500MG/ NS 100ML 500 MG in PREMIX 1 EA IV SCH ×3 (05:54→21:08)
--- NOTE | 2016-09-06 07:06 | NUR ---
RN NOTES PT REMAINED IN STABLE CONDITION. NO ACUTE RESP DISTRESS. AFEBRILE. NO SIGNIFICANT CHANGES SHOWS THROUGHOUT THE SHIFT. L AND RIGHT PLEURX REMAINED INTACT WITHOUT LEAKING SHOWS. IV ATB TOLERATED WELL WITHOUT ASE NOTED. PT IMMEDIATELY ANSWERED DURING URINATION PT REQUESTED. T/R PT COMFORTABLE AND PT REQUESTED. KEPT PT CLEAN AND DRY. ENDORSED CONTINUITY OF CARE TO AM NURSE.
--- NOTE | 2016-09-06 07:10 | NUR ---
RN INITIAL NOTES: REC'D PT ASLEEP ON BED, NOT IN ANY DISTRESS, EASILY AROUSABLE, A/O X3-4, DENIES ANY PAIN/DISCOMFORT. ON O2 AT 2LPM/NC, NO SOB. B CHEST TUBE IN PLACE W/ C/D/I DRESSING - R CT, CLAMPED & L CT, ON CONT DRAINAGE AT LEVEL 75 CC. RENO PICC LINE, PATENT & INTACT W/ NO S/SX OF INFECTION/ INFILTRATION NOTED. PROVIDED COMFORT & SAFETY MEASURES. BED KEPT LOW & IN LOCKED POSITION. CALL LIGHT PLACED W/IN REACH. ISOLATION PREC OBSERVED. WILL CONTINUE TO MONITOR.
[2016-09-06 07:27] LABS: CALCIUM, SERUM 8.3 mg/dL (8.5-10.1); CREATININE 0.1 mg/dL (0.6-1.3); POTASSIUM 3.8 mmol/L (3.5-5.1)
[2016-09-06 08:00] VITALS: BP 121/82
[2016-09-06] MEDS: FERROUS SULFATE (325 MG) 325 MG/TAB TABLET PO SCH ×2 (08:36→17:29)
[2016-09-06] MEDS: PANTOPRAZOLE 40 MG VIAL IV SCH (08:36)
[2016-09-06] MEDS: ANASTROZOLE 1 MG TABLET PO SCH (08:36)
[2016-09-06] MEDS: PROSOURCE / PROSTAT (PYXIS) 30 ML UDC GT SCH (08:36)
[2016-09-06] MEDS: methylPREDNISolone SOD SUCC 40 MG/ML VIAL IV SCH ×3 (08:36→17:29)
[2016-09-06] MEDS: ACIDOPHILUS/BULGARICUS 1 EACH TAB.CHEW PO SCH ×3 (08:36→17:28)
[2016-09-06] MEDS: HYDROGEL DRESSING 90 GM TUBE TP SCH (08:37)
[2016-09-06] MEDS: Z GUARD REMEDY 2 OZ OINT TP PRN (08:37)
[2016-09-06] MEDS: BOOST PLUS FOOD-CHOCLATE 237 ML BOX PO SCH ×3 (10:34→17:28)
[2016-09-06] MEDS ORDERED: IV SET PRIMARY PUMP SET 1 EA INFUS.SET MC ONE (12:13)
[2016-09-06] MEDS ORDERED: IV NS 0.9% 250 ML IV ONE (12:14)
[2016-09-06] MEDS ORDERED: SECONDARY IV SET 1 EA INFUS.SET MC ONE (13:11)
--- NOTE | 2016-09-06 13:25 | NUR ---
NON ADMIN NOTES: NS 250 CC IV STK MED FOR TKO.
[2016-09-06 16:00] VITALS: BP 112/71
[2016-09-06] MEDS: PROSOURCE / PROSTAT (PYXIS) 30 ML UDC PO SCH (17:28)
--- NOTE | 2016-09-06 19:06 | NUR ---
RN CLOSING NOTES: NO ACUTE CHANGES W/IN SHIFT. NO SOB, DENIES ANY PAIN/ DISCOMFORT. RENO PICC LINE SL, KEPT PATENT & INTACT W/ NO SIGNS OF INFECTION/ INFILTRATION. B CHEST TUBE IN PLACE W/ C/D/I DRESSING: RIGHT - CLAMPED (200 CC DRAINED), DRESSING CHANGED, LEFT - CONTINUOUSLY DRAINING, DRAINED 125 CC. KEPT WELL RESTED. CALL LIGHT PLACED W/IN REACH. BED KEPT LOW & IN LOCKED POSITION. ISOLATION PRECAUTION OBSERVED. NEEDS ATTENDED. WILL ENDORSE TO PM RN FOR CLARENCE.
[2016-09-06 20:00] VITALS: BP 117/72
[2016-09-06] MEDS: ENOXAPARIN SODIUM 40 MG/0.4 ML DISP.SYRIN SQ SCH (21:08)
[2016-09-07] MEDS: VANCOMYCIN HCL 125 MG/2.5 ML ORAL.SUSP PO SCH ×5 (00:27→23:11)
[2016-09-07 04:00] VITALS: BP 125/86
[2016-09-07] MEDS: METRONIDAZOLE 500MG/ NS 100ML 500 MG in PREMIX 1 EA IV SCH ×3 (04:48→21:55)
[2016-09-07 06:37] LABS: BASOPHILS % (AUTO) 0.2 % (0.0-2.0); EOSINOPHILS % (AUTO) 0.2 % (0.0-6.0); HEMATOCRIT 32 % (33-45); HEMOGLOBIN 11.1 g/dL (11.5-14.8); LYMPHOCYTES # (AUTO) 0.5 /CMM (0.8-4.8); LYMPHOCYTES % (AUTO) 3.6 % (20.0-44.0); MEAN CORPUSCULAR HEMOGLOBIN 31 PG (26.0-33.0); MEAN CORPUSCULAR HGB CONC 34 g/dl (31.0-36.0); MEAN CORPUSCULAR VOLUME 90 fL (82-100); MONOCYTES # (AUTO) 0.9 /CMM (0.1-1.30); MONOCYTES % (AUTO) 6.5 % (2.0-12.0); NEUTROPHILS # (AUTO) 11.7 /CMM (1.8-8.9); NEUTROPHILS % (AUTO) 89.5 % (43.0-81.0); PLATELET COUNT (AUTO) 249 /CMM (150-450); RDW COEFFICIENT OF VARIATION 19.8 (11.5-15.0); RED BLOOD CELL COUNT(AUTO) 3.59 MIL/uL (4.0-5.2); WHITE BLOOD COUNT (AUTO) 13.1 K/uL (4.3-11.0)
[2016-09-07 06:58] LABS: ALBUMIN 1.8 g/dL (3.4-5.0); BILIRUBIN,TOTAL 0.2 mg/dL (0.2-1.0); CALCIUM, SERUM 8.1 mg/dL (8.5-10.1); POTASSIUM 3.9 mmol/L (3.5-5.1); TOTAL PROTEIN, SERUM 4.6 g/dL (6.4-8.2)
[2016-09-07 07:07] LABS: CREATININE 0.1 mg/dL (0.6-1.3)
--- NOTE | 2016-09-07 07:30 | NUR ---
RN NOTES: RECEIVED PT RESTING IN BED, ASLEEP AT THIS TIME. EASILY AROUSABLE TO VERBAL AND TACTILE STIMULI. ABLE TO COMMUNICATE NEEDS, ALERT ORIENTEDX4. NOT IN ANY DISTRESS, DENIES ANY PAIN/DISCOMFORT. ON O2 AT 2LPM/NC, NO SOB. B CHEST TUBE IN PLACE W/ C/D/I DRESSING - R CT, CLAMPED & L CT, ON CONT DRAINAGE. RENO PICC LINE, PATENT & INTACT W/ IV NS TKO. NO S/SX OF INFECTION/ INFILTRATION NOTED. PROVIDED COMFORT & SAFETY MEASURES. BED KEPT LOW & IN LOCKED POSITION. CALL LIGHT PLACED W/IN REACH. ISOLATION PREC OBSERVED. WILL CONTINUE TO MONITOR.
[2016-09-07 08:00] VITALS: BP 137/95
[2016-09-07] MEDS: ACIDOPHILUS/BULGARICUS 1 EACH TAB.CHEW PO SCH ×3 (08:41→17:33)
[2016-09-07] MEDS: FERROUS SULFATE (325 MG) 325 MG/TAB TABLET PO SCH ×2 (08:41→17:33)
[2016-09-07] MEDS: methylPREDNISolone SOD SUCC 40 MG/ML VIAL IV SCH ×3 (08:41→17:33)
[2016-09-07] MEDS: HYDROGEL DRESSING 90 GM TUBE TP SCH (08:41)
[2016-09-07] MEDS: PANTOPRAZOLE 40 MG VIAL IV SCH (08:41)
[2016-09-07] MEDS: ANASTROZOLE 1 MG TABLET PO SCH (08:41)
[2016-09-07] MEDS: PROSOURCE / PROSTAT (PYXIS) 30 ML UDC PO SCH ×3 (08:42→17:33)
[2016-09-07] MEDS: BOOST PLUS FOOD-CHOCLATE 237 ML BOX PO SCH ×3 (08:42→17:33)
[2016-09-07 16:00] VITALS: BP 101/66
--- NOTE | 2016-09-07 18:55 | NUR ---
RN NOTES 250 ML OUTPUT DRAINED FROM R PLEURX AND 250 ML OUTPUT DRAINED FROM L PLEURX
--- NOTE | 2016-09-07 19:30 | NUR ---
MS RN INITIAL NOTES RECEIVED PATIENT AWAKE A/OX4, ABLE TO MAKE NEEDS KNOWN. DENIES PAIN OR DISCOMFORT. DENIES SOB. STATES SHES FEELING MUCH BETTER TODAY. SKIN WARM AND DRY TO TOUCH. WITH LEFT PLEURX IN PLACE DRAINING CLEAR LIGHT YELLOW DRAINAGE, RIGHT PLEURX IN PLACE CLAMPED. ISOLATION PRECAUTIONS OBSERVED. WITH RENO PICC LINE PATENT AND INTACT, TKO. HOB ELEVATED. SIDE RAILS UP AND LOCKED. CALL LIGHT KEPT WITHIN EASY REACH. WILL CONTINUE TO MONITOR.
[2016-09-07 20:00] VITALS: BP 124/74
[2016-09-07] MEDS ORDERED: METRONIDAZOLE 500MG/ NS 100ML 200 ML IV ONE (21:41)
[2016-09-07] MEDS: ENOXAPARIN SODIUM 40 MG/0.4 ML DISP.SYRIN SQ SCH (21:56)
[2016-09-08 04:00] VITALS: BP 120/86
[2016-09-08] MEDS ORDERED: IV NS 0.9% 250 ML IV ONE (05:52)
[2016-09-08] MEDS: VANCOMYCIN HCL 125 MG/2.5 ML ORAL.SUSP PO SCH ×4 (05:52→23:53)
[2016-09-08] MEDS: METRONIDAZOLE 500MG/ NS 100ML 500 MG in PREMIX 1 EA IV SCH ×3 (05:52→21:20)
--- NOTE | 2016-09-08 06:13 | NUR ---
MS RN CLOSING NOTES NO SIGNIFICANT CHANGES OVERNIGHT. ALL NEEDS ANTICIPATED AND MET. NO C/O OF SOB. NO C/O PAIN OR DISCOMFORT. KEPT CLEAN AND DRY. TURNED AND REPOSITIONED Q2 AND PRN. WOUND TX DONE ORDERED. LEFT PLEURX IN PLACE, DRAINING WELL AND RIGHT PLEURX CLAMPED. ALL DUE MEDS GIVEN. ISOLATION PRECAUTIONS OBSERVED. RENO PICC LINE TKO. HOB ELEVATED. SIDE RAILS UP AND LOCKED. BED KEPT AT LOWEST POSITION. CALL LIGHT KEPT WITHIN EASY REACH. WILL ENDORSE CONTINUITY OF CARE TO AM NURSE.
[2016-09-08 07:00] VITALS: BP 131/88
--- NOTE | 2016-09-08 07:10 | NUR ---
RN INITIAL NOTE RECEIVED PT FROM SUZIE RN PM SHIFT. PT A/O X4 MS. IV RENO PICC PATENT FLUSHED AND INTACT. L PLEURIX AND R PLEURIX INTACT. . PT NC 2 L NO C/O OF ACUTE SOB. WILL CONTINUE TO MONITOR CLOSELY. ALL SAFETY MEASURES IN PLACE.
--- NOTE | 2016-09-08 07:57 | NUR ---
RN NOTE REMOVED PINK STICKY FROM EMAR FOR PT SAFETY.
[2016-09-08 08:00] VITALS: BP 131/88
[2016-09-08] MEDS: methylPREDNISolone SOD SUCC 40 MG/ML VIAL IV SCH ×3 (08:25→17:52)
[2016-09-08] MEDS: ACIDOPHILUS/BULGARICUS 1 EACH TAB.CHEW PO SCH ×3 (08:25→17:51)
[2016-09-08] MEDS: BOOST PLUS FOOD-CHOCLATE 237 ML BOX PO SCH ×3 (08:25→17:52)
[2016-09-08] MEDS: ANASTROZOLE 1 MG TABLET PO SCH (08:25)
[2016-09-08] MEDS: PANTOPRAZOLE 40 MG VIAL IV SCH (08:25)
[2016-09-08] MEDS: PROSOURCE / PROSTAT (PYXIS) 30 ML UDC PO SCH ×3 (08:26→17:51)
[2016-09-08] MEDS: FERROUS SULFATE (325 MG) 325 MG/TAB TABLET PO SCH ×2 (08:26→17:51)
[2016-09-08] MEDS: HYDROGEL DRESSING 90 GM TUBE TP SCH (08:31)
[2016-09-08] MEDS: ASCORBIC ACID 500 MG TABLET PO SCH (09:47)
--- NOTE | 2016-09-08 14:00 | NUR ---
RN NOTE SANAM C SUPPLY TO REORDER TUBING AND PLEURX BOTTLE. BOTTLE AND TUBING @ BEDSIDE. PT AWARE.
[2016-09-08 16:00] VITALS: BP 139/97
--- NOTE | 2016-09-08 19:00 | NUR ---
JERMAIN CLOSING NOTE REPORT GIVEN TO NORMA ALY PM SHIFT. PT A/O X4 MS. IV RENO PICC PATENT FLUSHED AND INTACT. L PLEURIX AND R PLEURIX INTACT. .PT NC 2 L NO C/O OF ACUTE SOB THROUGH OUT SHIFT. PAIN 0/10. PT CLEAN AND DRY. ALL SAFETY MEASURES IN PLACE. Addendum: 09/08/16 at 1923 by LULU LARSEN RN REPORT GIVEN TO JARED ALY. Addendum: 09/08/16 at 1936 by LULU LARSEN RN Report given to Susanne ALY.
--- NOTE | 2016-09-08 19:30 | NUR ---
RN OPENING NOTES RECEIVED REPORT FROM LULU ALY. PATIENT A/A/O X4, ABLE TO MAKE NEEDS KNOWN. NO RESPIRATORY DISTRESS, BREATHING EVEN AND UNLABORED. ON O2 @ 2LPM VIA NC. RENO PICC LINE INTACT AND PATENT, TKO. LEFT PLUERX AND RIGHT PLEURX INTACT. DENIES ANY PAIN @ THIS TIME. SIDE RAILS UP, BED LOCKED AND IN LOWEST POSITION, CALL LIGHT WITHIN REACH.
[2016-09-08 20:00] VITALS: BP 137/87
[2016-09-09 04:00] VITALS: BP 131/87
[2016-09-09] MEDS: VANCOMYCIN HCL 125 MG/2.5 ML ORAL.SUSP PO SCH ×3 (05:16→18:25)
[2016-09-09] MEDS: METRONIDAZOLE 500MG/ NS 100ML 500 MG in PREMIX 1 EA IV SCH ×3 (05:16→20:39)
[2016-09-09] MEDS ORDERED: IV NS 0.9% 250 ML IV ONE (05:27)
[2016-09-09 06:51] LABS: HEMATOCRIT 34 % (33-45); HEMOGLOBIN 11.4 g/dL (11.5-14.8); LYMPHOCYTES # (AUTO) 0.5 /CMM (0.8-4.8); LYMPHOCYTES % (AUTO) 3.6 % (20.0-44.0); MEAN CORPUSCULAR HEMOGLOBIN 31 PG (26.0-33.0); MEAN CORPUSCULAR HGB CONC 34 g/dl (31.0-36.0); MEAN CORPUSCULAR VOLUME 92 fL (82-100); MONOCYTES # (AUTO) 0.6 /CMM (0.1-1.30); MONOCYTES % (AUTO) 4.6 % (2.0-12.0); NEUTROPHILS # (AUTO) 12.1 /CMM (1.8-8.9); NEUTROPHILS % (AUTO) 91.8 % (43.0-81.0); PLATELET COUNT (AUTO) 247 /CMM (150-450); RDW COEFFICIENT OF VARIATION 19.5 (11.5-15.0); RED BLOOD CELL COUNT(AUTO) 3.66 MIL/uL (4.0-5.2); WHITE BLOOD COUNT (AUTO) 13.2 K/uL (4.3-11.0)
--- NOTE | 2016-09-09 07:05 | NUR ---
RN CLOSING NOTES: PATIENT RESTING IN BED. NO RESPIRATORY DISTRESS NOTED, DENIES ANY PAIN OR DISCOMFORT. RIGHT UPPER PICC LINE INTACT AND PATENT. LEFT AND RIGHT PLEURX INTACT AND DRAINING. KEPT CLEAN AND DRY. ALL NEEDS MET @ THIS TIME. NO SIGNIFICANT EVENTS DURING SHIFT. WILL ENDORSE CONTUINITY OF CARE TO AM NURSE.
[2016-09-09 07:09] LABS: CALCIUM, SERUM 8.2 mg/dL (8.5-10.1); CREATININE 0.2 mg/dL (0.6-1.3); POTASSIUM 3.9 mmol/L (3.5-5.1)
[2016-09-09 08:00] VITALS: BP 137/91
--- NOTE | 2016-09-09 08:00 | NUR ---
RN INITIAL NOTE PT A/O X4 MS. IV RENO PICC PATENT FLUSHED AND INTACT. L PLEURIX AND R PLEURIX INTACT. PT NC 2 L NO C/O OF ACUTE SOB. WILL CONTINUE TO MONITOR CLOSELY. ALL SAFETY MEASURES IN PLACE.
[2016-09-09] MEDS: ANASTROZOLE 1 MG TABLET PO SCH (08:47)
[2016-09-09] MEDS: ACIDOPHILUS/BULGARICUS 1 EACH TAB.CHEW PO SCH ×3 (08:47→17:00)
[2016-09-09] MEDS: methylPREDNISolone SOD SUCC 40 MG/ML VIAL IV SCH ×3 (08:47→17:00)
[2016-09-09] MEDS: ASCORBIC ACID 500 MG TABLET PO SCH (08:47)
[2016-09-09] MEDS: PANTOPRAZOLE 40 MG VIAL IV SCH (08:47)
[2016-09-09] MEDS: BOOST PLUS FOOD-CHOCLATE 237 ML BOX PO SCH ×3 (08:47→17:00)
[2016-09-09] MEDS: FERROUS SULFATE (325 MG) 325 MG/TAB TABLET PO SCH ×2 (08:47→17:00)
[2016-09-09] MEDS: HYDROGEL DRESSING 90 GM TUBE TP SCH (08:48)
[2016-09-09] MEDS: PROSOURCE / PROSTAT (PYXIS) 30 ML UDC PO SCH ×3 (08:48→17:00)
[2016-09-09 16:00] VITALS: BP 121/78
--- NOTE | 2016-09-09 18:51 | NUR ---
RN CLOSING NOTES: PATIENT RESTING IN BED. NO RESPIRATORY DISTRESS NOTED, DENIES ANY PAIN OR DISCOMFORT. RIGHT UPPER PICC LINE INTACT AND PATENT. LEFT AND RIGHT PLEURX INTACT AND DRAINING. KEPT CLEAN AND DRY. ALL NEEDS MET @ THIS TIME. NO SIGNIFICANT EVENTS DURING SHIFT. WILL ENDORSE CONTINUITY OF CARE TO PM NURSE. RN WILL ENDORSE LEFT CHEST TUBE DRAINING TO PM NURSE UNABLE TO COMPLETE THIS TAKE AT THIS TIME.
--- NOTE | 2016-09-09 19:30 | NUR ---
RN OPENING NOTES RECEIVED REPORT FROM JACKY ALY. PATIENT A/A/O X4. NO RESPIRATORY DISTRESS NOTED, BREATHING EVEN AND UNLABORED. ON O2 2LPM VIA NC, TOLERATING WELL. RIGHT UPPER PICC LINE INTACT AND PATENT, TKO. LEFT AND RIGHT PLEURX INTACT AND DRAINING. BOWEL SOUNDS PRESENT IN ALL QUADRANTS. SIDE RAILS UP, BED LOCKED AND IN LOWEST POSITION,CALL LIGHT WITHIN REACH. WILL CONTINUE TO MONITOR.
[2016-09-09 20:00] VITALS: BP 137/90
[2016-09-10] MEDS: VANCOMYCIN HCL 125 MG/2.5 ML ORAL.SUSP PO SCH ×4 (00:08→17:15)
[2016-09-10 04:00] VITALS: BP 133/93
[2016-09-10] MEDS: METRONIDAZOLE 500MG/ NS 100ML 500 MG in PREMIX 1 EA IV SCH ×3 (05:12→21:30)
[2016-09-10] MEDS ORDERED: IV NS 0.9% 250 ML IV ONE (05:32)
[2016-09-10] MEDS ORDERED: IV SET PRIMARY PUMP SET 1 EA INFUS.SET MC ONE (05:47)
[2016-09-10] MEDS ORDERED: SECONDARY IV SET 1 EA INFUS.SET MC ONE (05:47)
--- NOTE | 2016-09-10 07:03 | NUR ---
RN CLOSING NOTES: PATIENT ASLEEP IN BED. NO RESPIRATORY DISTRESS NOTED, O2 SAT @ 99% ON 02 2LPM VIA NC, TOLERATED WELL. RIGHT UPPER PICC LINE INTACT AND PATENT, TKO. RIGHT AND LEFT PLEURX INTACT AND DRAINING. NO COMPLICATIONS NOTED. NO SIGNIFICANT CHANGES DURING SHIFT. ALL NEEDS MET @ THIS TIME. WILL ENDORSE CONTINUITY OF CARE TO AM NURSE.
[2016-09-10 08:00] VITALS: BP 138/93
--- NOTE | 2016-09-10 08:00 | NUR ---
RN NOTE: PT SITTING IN BED, A&OX4, NO DISTRESS NOTED, BREATHING EVEN AND UNLABORED. R & L PLEURAL DRAINS PATENT AND INTACT. R DRAIN CLAMPED, NO LEAKS NOTED; L DRAINING WELL TO GRAVITY. RENO PICC WITH TKO INFUSING WELL. WILL CONT TO MONITOR PT
[2016-09-10] MEDS: BOOST PLUS FOOD-CHOCLATE 237 ML BOX PO SCH ×3 (08:46→17:14)
[2016-09-10] MEDS: methylPREDNISolone SOD SUCC 40 MG/ML VIAL IV SCH ×3 (08:46→17:14)
[2016-09-10] MEDS: ACIDOPHILUS/BULGARICUS 1 EACH TAB.CHEW PO SCH ×3 (08:46→17:15)
[2016-09-10] MEDS: PROSOURCE / PROSTAT (PYXIS) 30 ML UDC PO SCH ×3 (08:47→17:27)
[2016-09-10] MEDS: PANTOPRAZOLE 40 MG TABLET.DR PO SCH (08:47)
[2016-09-10] MEDS: ANASTROZOLE 1 MG TABLET PO SCH (08:47)
[2016-09-10] MEDS: ASCORBIC ACID 500 MG TABLET PO SCH (08:47)
[2016-09-10] MEDS: HYDROGEL DRESSING 90 GM TUBE TP SCH (08:47)
[2016-09-10] MEDS: FERROUS SULFATE (325 MG) 325 MG/TAB TABLET PO SCH ×2 (08:47→17:15)
[2016-09-10] MEDS: Z GUARD REMEDY 2 OZ OINT TP PRN (08:48)
--- NOTE | 2016-09-10 18:00 | NUR ---
RN NOTE: L PLEURAL DRAIN [ASPIRA] REPLACED - 275CC SEROUS DRAINAGE NOTED. R PLEURAX DRAIN - CONNECTED TO VACUTAINER. DRAINING CLEAR TO SEROUS DRAINAGE. PT UPDATED AND EDUCATED THROUGHOUT PROCEDURE. WILL CONT TO MONITOR.
--- NOTE | 2016-09-10 19:30 | NUR ---
MS RN INITIAL NOTES RECEIVED PATIENT AWAKE A/OX3, ABLE TO MAKE NEEDS KNOWN. DENIES PAIN OR DISCOMFORT. DENIES SOB. RESPIRATIONS EVEN AND UNLABORED. WITH LEFT PLEURX PATENT AND INTACT, DRAINING CLEAR YELLOW OUTPUT. WITH RIGHT PLUERX PATENT AND INTACT, DRAINING SEROUSANGUINOUS FLUID. ISOLATION PRECAUTIONS OBSERVED. SIDE RAILS UP AND LOCKED. BED KEPT AT LOWEST POSITION. CALL LIGHT KEPT WITHIN EASY REACH. WILL CONTINUE TO MONITOR.
[2016-09-10 20:00] VITALS: BP 129/82
--- NOTE | 2016-09-10 22:08 | NUR ---
S/P RIGHT PLUERX DRAINAGE, WITHOUT COMPLICATIONS NOTED. 125ML SEROUSANGUINOUS OUTPUT NOTED. CLAMPED. WILL CONTINUE TO MONITOR.
[2016-09-11] MEDS: VANCOMYCIN HCL 125 MG/2.5 ML ORAL.SUSP PO SCH ×4 (00:18→17:08)
[2016-09-11 04:00] VITALS: BP 130/88
[2016-09-11] MEDS ORDERED: IV NS 0.9% 250 ML IV ONE (04:18)
[2016-09-11] MEDS: METRONIDAZOLE 500MG/ NS 100ML 500 MG in PREMIX 1 EA IV SCH (05:35)
--- NOTE | 2016-09-11 07:26 | NUR ---
MS RN CLOSING NOTES NO SIGNIFICANT CHANGES OVERNIGHT. DENIES SOB. DENIES PAIN OR DISCOMFORT. ALL NEEDS ANTICIPATED AND MET. SKIN WARM AND DRY TO TOUCH. ALL DUE MEDS GIVEN. BILATERAL PLEURX IN PLACE, PATENT AND INTACT. KEPT CLEAN AND DRY. TURNED AND REPOSITIONED Q2 AND PRN. ISOLATION PRECAUTIONS OBSERVED. SIDE RAILS UP AND LOCKED. BED KEPT AT LOWEST POSITION. CALL LIGHT KEPT WITHIN EASY REACH. CONTINUITY OF CARE ENDORSED TO AM NURSE.
--- NOTE | 2016-09-11 07:47 | NUR ---
MS RN NOTE PATIENT IN BED , RESTING COMFORTABLY AT THIS TIME, NO C\O PAIN ,NO SOB ON 2L NC , LT CHEST DRESSING INTACT , RT UPPER ARM PICC LINE IN PLACE , RT PLEURX VAC IN PLACE CLUMPED AT THIS TIME , LT PLEUVAC IN PLACE ,DRAIN BY GRAVITY ,NOTED YELLOW COLOR DRAINAGE , KEEP AFFECTED AREA CLEAN DRY , CALL LIGHT WITHIN REACH .BED IN ,LOWEST AND AND LOCKED POSITION , PLAN OF CARE DISCUSSED WITH PATENT, WILL CONT TO MONITOR CLOSELY
[2016-09-11 08:00] VITALS: BP 138/88
[2016-09-11] MEDS: FERROUS SULFATE (325 MG) 325 MG/TAB TABLET PO SCH ×2 (08:29→16:52)
[2016-09-11] MEDS: ASCORBIC ACID 500 MG TABLET PO SCH (08:29)
[2016-09-11] MEDS: PROSOURCE / PROSTAT (PYXIS) 30 ML UDC PO SCH ×3 (08:29→16:52)
[2016-09-11] MEDS: methylPREDNISolone SOD SUCC 40 MG/ML VIAL IV SCH ×3 (08:29→16:52)
[2016-09-11] MEDS: ACIDOPHILUS/BULGARICUS 1 EACH TAB.CHEW PO SCH ×3 (08:29→16:52)
[2016-09-11] MEDS: PANTOPRAZOLE 40 MG TABLET.DR PO SCH (08:29)
[2016-09-11] MEDS: BOOST PLUS FOOD-CHOCLATE 237 ML BOX PO SCH ×3 (08:29→17:09)
[2016-09-11] MEDS: HYDROGEL DRESSING 90 GM TUBE TP SCH (08:30)
[2016-09-11] MEDS: ANASTROZOLE 1 MG TABLET PO SCH (08:30)
--- NOTE | 2016-09-11 10:50 | NUR ---
MS RN NOTE PER ASSOCIATE PRODUCER DR CARTAGENA OK TO SKIP TODAY TO DRAIN RT PLUEROVAC AWARE THAT FROM LAST NIGHT ROM RT SIDE 125 ML AND LT SIDE 75 ML
--- NOTE | 2016-09-11 13:13 | NUR ---
MS RN NOTE PT AT BEDSIDE ,EXERCISES DOING AT BEDSIDE, KEEP CLEAN DRY
--- NOTE | 2016-09-11 15:00 | NUR ---
,S RN NOTE MADE A BM ,KEEP CLEAN DRY , ALL NEEDS ATTENDED, CALL LIGHT WITHIN REACH
[2016-09-11 16:00] VITALS: BP 125/85
[2016-09-11 16:24] VITALS: BP 125/88
--- NOTE | 2016-09-11 19:30 | NUR ---
MS RN INITIAL NOTES RECEIVED PATIENT AWAKE A/OX4, ABLE TO MAKE NEEDS KNOWN. DENIES SOB. DENIES PAIN OR DISCOMFORT. RESPIRATIONS EVEN AND UNLABORED. WITH LEFT PLEURX IN PLACE, DRAINING BY GRAVITY, NO OUTPUT NOTED AT THIS TIME, RIGHT PLEURX CLAMPED AT THIS TIME. ISOLATION PRECAUTIONS OBSERVED. PATIENT MOTIVATED WITH SELF CARE. TURNED AND REPOSITIONED WITH VERY LITTLE ASSISTANCE. SIDE RAILS UP AND LOCKED. BED KEPT AT LOWEST POSITION. CALL LIGHT KEPT WITHIN EASY REACH. WILL CONTINUE TO MONITOR.
[2016-09-11 20:00] VITALS: BP 133/90
[2016-09-12] MEDS: VANCOMYCIN HCL 125 MG/2.5 ML ORAL.SUSP PO SCH ×5 (00:26→23:34)
[2016-09-12 04:00] VITALS: BP 142/97
--- NOTE | 2016-09-12 05:09 | NUR ---
PATIENT IN STABLE CONDITION. CONTINUITY OF CARE ENDORSED TO LALITHA
--- NOTE | 2016-09-12 06:22 | NUR ---
MS RN CLOSING NOTES NO SIGNIFICANT CHANGES OVERNIGHT. DENIES SOB. DENIES PAIN OR DISCOMFORT, AM MEDS GIVEN. ALL NEEDS ANTICIPATED AND MET. SKIN WARM AND DRY TO TOUCH. ALL DUE MEDS GIVEN. BILATERAL PLEURX IN PLACE, PATENT AND INTACT. KEPT CLEAN AND DRY. TURNED AND REPOSITIONED Q2 AND PRN. ISOLATION PRECAUTIONS OBSERVED. SIDE RAILS UP AND LOCKED. BED KEPT AT LOWEST POSITION. CALL LIGHT KEPT WITHIN EASY REACH. CONTINUITY OF CARE ENDORSED TO AM NURSE
--- NOTE | 2016-09-12 07:05 | NUR ---
RN INITIAL NOTE REPORT RECEIVED FROM [facility]. PT A/O X4 MS. IV RENO PICC PATENT FLUSHED AND INTACT. L PLEURIX AND R PLEURIX INTACT. PT NC 2 L NO C/O OF ACUTE SOB. WILL CONTINUE TO MONITOR CLOSELY. ALL SAFETY MEASURES IN PLACE.
[2016-09-12] MEDS ORDERED: IV NS 0.9% 250 ML IV ONE (07:54)
[2016-09-12 08:00] VITALS: BP 140/88
[2016-09-12] MEDS: ACIDOPHILUS/BULGARICUS 1 EACH TAB.CHEW PO SCH ×3 (08:41→17:17)
[2016-09-12] MEDS: BOOST PLUS FOOD-CHOCLATE 237 ML BOX PO SCH ×3 (08:41→17:17)
[2016-09-12] MEDS: ANASTROZOLE 1 MG TABLET PO SCH (08:42)
[2016-09-12] MEDS: PANTOPRAZOLE 40 MG TABLET.DR PO SCH (08:42)
[2016-09-12] MEDS: ASCORBIC ACID 500 MG TABLET PO SCH (08:43)
[2016-09-12] MEDS: FERROUS SULFATE (325 MG) 325 MG/TAB TABLET PO SCH ×2 (08:43→17:17)
[2016-09-12] MEDS: methylPREDNISolone SOD SUCC 40 MG/ML VIAL IV SCH ×3 (08:44→17:18)
[2016-09-12] MEDS: HYDROGEL DRESSING 90 GM TUBE TP SCH (08:45)
[2016-09-12] MEDS: PROSOURCE / PROSTAT (PYXIS) 30 ML UDC PO SCH ×3 (08:55→17:17)
--- NOTE | 2016-09-12 12:40 | NUR ---
RN NOTE UNABLE TO SCAN SOLU-MEDROL BOTTLE. ATTEMPTED MULTIPLE TIMES. VERIFIED NAME, TIME, DOSE, ROUTE AND MEDICATION.
[2016-09-12 16:00] VITALS: BP 134/94
--- NOTE | 2016-09-12 19:00 | NUR ---
RN CLOSING NOTE PT A/O X4 MS. IV RENO PICC PATENT FLUSHED AND INTACT. L PLEURIX AND R PLEURIX INTACT. PT NC 2 L NO C/O OF ACUTE SOB THROUGHOUT SHIFT. ALL SAFETY MEASURES IN PLACE.
--- NOTE | 2016-09-12 19:15 | NUR ---
RN INITIAL NOTES RECEIVED PATIENT IN BED, AWAKE AND ALERT X4. DENIES ANY PAIN AND DISCOMFORT. NO RESPIRATORY DISTRESS AND NO SOB. ON 1LPM OF HUMIDIFIED O2 VIA NC. RENO PICC LINE, INTACT, FLUSHED AND KEPT PATENT. R AND L PLEURX INTACT, RIGHT IS CLAMPED, LEFT WITH NO DRAINAGE NOTED. PATIENT'S NEEDS ANTICIPATED AND MET. SAFETY AND COMFORT ENSURED. BED IN LOW AND LOCKED POSITION. ISOLATION PRECAUTIONS OBSERVED. CALL LIGHT IN REACH. WILL MONITOR.
[2016-09-12 20:00] VITALS: BP_SYST 127; BP_DIAS 85; BP_DIAS 87
[2016-09-13 04:00] VITALS: BP 139/86
[2016-09-13] MEDS: VANCOMYCIN HCL 125 MG/2.5 ML ORAL.SUSP PO SCH ×3 (06:02→18:17)
--- NOTE | 2016-09-13 06:36 | NUR ---
RN CLOSING NOTES PATIENT WITH NO ACUTE CHANGE IN CONDITION OBSERVED OVERNIGHT. PATIENT WITH NO OUTPUT/DRAINAGE NOTED ON L PLEURX OVERNIGHT. R PLEURX CLAMPED. PATIENT WITH NO C/O SOB, REMAINS ON 1LPM OF O2 VIA NC OVERNIGHT WITH NO DISTRESS. PATIENT'S NEEDS ANTICIPATED AND MET. SAFETY AND COMFORT ENSURED. BED IN LOW AND LOCKED POSITION. CALL LIGHT IN REACH. WILL ENDORSE ACCORDINGLY FOR CONTINUITY OF CARE.
[2016-09-13 08:00] VITALS: BP 139/95
--- NOTE | 2016-09-13 08:00 | NUR ---
MS1/RN AM SHIFT INITIAL NOTES RECEIVED PT AWAKE SITTING IN BED, NO ACUTE CHANGE OF CONDITION OR RESPIRATORY DISTRESS. PT A/O X 4, DENIES ANY SYMPTOMS. ON 1L OF HUMIDIFIED O2 SATURATING @ 100%, LUNG SOUNDS DIMINISHED. LEFT LUNG PLEUX TUBE INTACT, NO DRAINAGE, RIGHT LUNG PLEURX TUBE INTACT, CLAMPED. PICC LINE ON TKO, PATENT WITH NO S/S OF INFECTION. PT IS COMFORTABLE. SCHEDULED AM MEDS TO BE GIVEN. CL WITHIN REACHED AND SAFETY MAINTAINED. ON GOING MONITORING.
[2016-09-13] MEDS: BOOST PLUS FOOD-CHOCLATE 237 ML BOX PO SCH ×3 (08:27→16:24)
[2016-09-13] MEDS: FERROUS SULFATE (325 MG) 325 MG/TAB TABLET PO SCH ×2 (08:28→16:26)
[2016-09-13] MEDS: ASCORBIC ACID 500 MG TABLET PO SCH (08:28)
[2016-09-13] MEDS: methylPREDNISolone SOD SUCC 40 MG/ML VIAL IV SCH ×3 (08:28→16:26)
[2016-09-13] MEDS: PANTOPRAZOLE 40 MG TABLET.DR PO SCH (08:28)
[2016-09-13] MEDS: ACIDOPHILUS/BULGARICUS 1 EACH TAB.CHEW PO SCH ×3 (08:28→16:26)
[2016-09-13] MEDS: ANASTROZOLE 1 MG TABLET PO SCH (08:28)
[2016-09-13] MEDS: HYDROGEL DRESSING 90 GM TUBE TP SCH (08:29)
[2016-09-13] MEDS: PROSOURCE / PROSTAT (PYXIS) 30 ML UDC PO SCH ×3 (08:29→16:25)
--- NOTE | 2016-09-13 10:43 | NUR ---
MS1/RN MEDICAL RECORDS - [facility] MEDICAL RECORDS FAXED TO ELLI TAVAREZ OF [facility] WITH CONSENT OBTAINED FROM PT. SPOKE TO MS. TAVAREZ ACKNOWLEDGING THE RECEIPT OF THE MEDICAL RECORDS. PER MS. TAVAREZ THE FACILITY HAS NO AVAILABLE ISOLATION FOR PT AT THIS TIME. PT IS CURRENTLY ON VANCOCIN FOR C-DIFF (FOR SOMETIME NOW) WILL FOLLOW-UP WITH ID IF PT CAN BE TAKEN OFF ISOLATION. MONITORING CONTINUED.
--- NOTE | 2016-09-13 13:04 | NUR ---
MS1/RN EDWARDS RESPIRATORY EVALUATION PT SEEN BY [employer]ATORY [employer] FOR EVALUATION.
[2016-09-13 16:00] VITALS: BP 126/88
--- NOTE | 2016-09-13 19:25 | NUR ---
MS1/RN AM SHIFT END NOTES NO CHANGE OF CONDITION NOTED DURING THE SHIFT. NEEDS MET. PT ENDORSED TO PM NURSE TO CONTINUE CARE. CL WITHIN REACHED, SAFETY MAINTAINED AND ISOLATION OBSERVED.
--- NOTE | 2016-09-13 19:35 | NUR ---
MS RN INITIAL NOTE RECEIVED PT IN BED. A/O X4 AND ABLE TO MAKE NEEDS KNOWN. ON 2L OF O2 AND SATURATING 100%. IV RENO PICC CLEAN, INTACT, PATENT AND FLUSHING WELL. R AND L PLEURX IN PLACE, PATENT AND CLAMPED AT THIS TIME. ISOLATION PRECAUTIONS OBSERVED. CALL LIGHT WITHIN EASY REACH AT ALL TIMES. WILL CONTINUE TO MONITOR.
[2016-09-13 20:00] VITALS: BP 127/85
[2016-09-14] MEDS: VANCOMYCIN HCL 125 MG/2.5 ML ORAL.SUSP PO SCH ×2 (00:08→06:05)
[2016-09-14 04:00] VITALS: BP 137/90
--- NOTE | 2016-09-14 06:45 | NUR ---
MS RN CLOSING NOTE PT REMAINED STABLE DURING SHIFT. NO ACUTE DISTRESS NOTED. ALL NEEDS ATTENDED TO PROMPTLY. KEPT CLEAN AND DRY. ON 2L OF O2WELL TOLERATED. CALL LIGHT WITHIN EASY REACH. ISOLATION PRECAUTIONS OBSERVED. WILL ENDORSE TO NEXT SHIFT FOR CLARENCE.
--- NOTE | 2016-09-14 07:10 | NUR ---
MS RN NOTES RECEIVED PATIENT IN BED, AWAKE. A/O X4, ON OXYGEN AT 2L/MIN VIA NC, NO SOB. RENO PICC LINE PATENT AND INTACT, FLUSHES WELL. NO C/O PAIN AT THIS TIME. LEFT LAT CHEST PLEURX WITH NO FLUID DRAINAGE, ANOTHER IN RIGHT LAT CHEST PLEURX CLAMPED. CALL LIGHT WITHIN REACH. ON CONTACT ISOLATION MRSA WOUND. WILL CONT TO MONITOR.
[2016-09-14 08:00] VITALS: BP 138/89
[2016-09-14] MEDS: methylPREDNISolone SOD SUCC 40 MG/ML VIAL IV SCH ×3 (08:24→16:57)
[2016-09-14] MEDS: ACIDOPHILUS/BULGARICUS 1 EACH TAB.CHEW PO SCH ×3 (08:25→16:57)
[2016-09-14] MEDS: PANTOPRAZOLE 40 MG TABLET.DR PO SCH (08:25)
[2016-09-14] MEDS: ANASTROZOLE 1 MG TABLET PO SCH (08:25)
[2016-09-14] MEDS: FERROUS SULFATE (325 MG) 325 MG/TAB TABLET PO SCH ×2 (08:25→16:57)
[2016-09-14] MEDS: ASCORBIC ACID 500 MG TABLET PO SCH (08:25)
[2016-09-14] MEDS: BOOST PLUS FOOD-CHOCLATE 237 ML BOX PO SCH ×3 (08:27→17:00)
[2016-09-14] MEDS: PROSOURCE / PROSTAT (PYXIS) 30 ML UDC PO SCH ×3 (08:30→16:57)
[2016-09-14] MEDS: HYDROGEL DRESSING 90 GM TUBE TP PRN (08:32)
[2016-09-14] MEDS: HYDROGEL DRESSING 90 GM TUBE TP SCH (08:36)
[2016-09-14 16:00] VITALS: BP 133/89
--- NOTE | 2016-09-14 18:25 | NUR ---
MS RN CLOSING NOTES PATIENT IN BED, NOT IN DISTRESS. HAD BOWEL MOVEMENT TODAY X3, WITH EPISODE OF DIARRHEA X1. STOOL SEND TO LAB FOR TEST C-DIFF. DRESSING CHANGED IN LEFT CHEST WOUND, NO C/O PAIN. LEFT LAT CHEST PLEURX TUBE CONNECTED TO DRAINAGE BAG, NO FLUID DRAINAGE NOTED. RIGHT LAT CHEST PLEURX TUBE UNCLAMPED AND DRAINED TO BOTTLE SUCTION WITH 5ML CLEAR YELLOW FLUID DRAINAGE, THEN CLAMPED RIGHT LAT CHEST PLEURX TUBE AGAIN, SECURED TUBING WITH TAPE. TURNED AND REPOSITIONED IN BED. CALL LIGHT LIGHT WITHIN REACH. AWAITING FOR PLACEMENT. WILL ENDORSE TO BAGGAGE SECURITY CHECKER RN FOR CONTINUITY OF CARE.
--- NOTE | 2016-09-14 19:20 | NUR ---
MS RN INITIAL NOTE PT RECEIVED IN NO ACUTE DISTRESS. A/O X4 AND ABLE TO MAKE NEEDS KNOWN. ON 2L 02 VIA NC TOLERATING WELL 02 SAT 95%. HAS SACRAL ULCER/ L CHEST WOUND. RENO PICC LINE CLEAN DRY AND PATENT/FLUSHED WELL. L CHEST PLEURX OPEN AND DRAINING AND R CHEST PLEURX CLAMPED CURRENTLY. PT HAD BM X4 PREVIOUS SHIFT. CAN AMBULATE AD ADITYA WITH ASSISTANCE. SAFETY AND COMFORT MEASURES ENSURED DURING THE SHIFT. WILL CONTINUE TO MONITOR FOR ANY CHANGES.
[2016-09-14 20:00] VITALS: BP 127/74
[2016-09-14] MEDS ORDERED: IV SET PRIMARY 1 EA INFUS.SET MC ONE (23:37)
[2016-09-14] MEDS ORDERED: IV SET PRIMARY PUMP SET 1 EA INFUS.SET MC ONE (23:38)
[2016-09-15 04:00] VITALS: BP 127/74
--- NOTE | 2016-09-15 06:33 | NUR ---
RN MS CLOSING NOTE PT REMAINED IN NO ACUTE DISTRESS DURING THE SHIFT. ALL VITALS WNL. PT IS ON 2L 02 VIA NC WITH ADEQUATE 02 SATURATION. NO SOB NOTED. NO DRAINAGE NOTED FROM LEFT SIDE PLEURX. WILL ENDORSE TO REMAIN AWARE OF D/C PLANNING/STATUS. PT IS CALM COMFORTABLE AND SAFE IN BED. WILL ENDORSE CARE TO AM NURSE.
[2016-09-15 08:00] VITALS: BP 137/95
--- NOTE | 2016-09-15 08:00 | NUR ---
COFFEE SHOP MANAGER; ASSESSMENT RECEIVED PT AWAKE AND ORIENTED X4. PT DENIES ANY PAIN AT THIS TIME. NOTED PT WITH GURPREET PLUREX DRAIN RIGHT CLAMPED LEFT ATTACHED TO DRAIN. PT DENIES ANY SOB. NO ACUTE DISTRESS NOTED WILL CONTINUE TO MONITOR. CALL LIGHT WITH IN REACH
[2016-09-15] MEDS: ACIDOPHILUS/BULGARICUS 1 EACH TAB.CHEW PO SCH ×3 (08:31→16:51)
[2016-09-15] MEDS: HYDROGEL DRESSING 90 GM TUBE TP SCH (08:31)
[2016-09-15] MEDS: ANASTROZOLE 1 MG TABLET PO SCH (08:31)
[2016-09-15] MEDS: PROSOURCE / PROSTAT (PYXIS) 30 ML UDC PO SCH ×3 (08:31→16:51)
[2016-09-15] MEDS: methylPREDNISolone SOD SUCC 40 MG/ML VIAL IV SCH ×3 (08:31→16:51)
[2016-09-15] MEDS: BOOST PLUS FOOD-CHOCLATE 237 ML BOX PO SCH ×3 (08:31→16:51)
[2016-09-15] MEDS: PANTOPRAZOLE 40 MG TABLET.DR PO SCH (08:31)
[2016-09-15] MEDS: ASCORBIC ACID 500 MG TABLET PO SCH (08:31)
[2016-09-15] MEDS: FERROUS SULFATE (325 MG) 325 MG/TAB TABLET PO SCH ×2 (08:31→16:51)
[2016-09-15 16:00] VITALS: BP 144/94
--- NOTE | 2016-09-15 19:20 | NUR ---
RN MS INITIAL NOTE RECEIVED PT IN NO ACUTE DISTRESS. A/O X4 AND ABLE TO MAKE NEEDS KNOWN. ON 2L 02 VIA NC WITH 02 SATURATION AT 97%. RIGHT PLEURX CLAMPED AND CLEAN, LEFT PLEURX LEFT OPEN TO DRAIN WITH NO DRAINAGE NOTED. WOUNDS PROPERLY CARED FOR AND WILL CONTINUE TO MONITOR FOR ANY CHANGES. RENO PICC LINE CLEAN DRY AND PATENT. PT IS COMFORTABLE AND CLEAN IN BED. COMFORT/SAFETY MEASURES ENSURED. WILL CONTINUE TO MONITOR FOR ANY CHANGES DURING SHIFT.
[2016-09-15 20:00] VITALS: BP 134/93
[2016-09-16 04:00] VITALS: BP 138/99
--- NOTE | 2016-09-16 06:39 | NUR ---
RN MS CLOSING NOTE PT REMAINS IN NO ACUTE DISTRESS. ON 2L 02 VIA NC WITH SATURATION OF 97% WITH NO SOB. RENO PICC LINE CLEAN DRY AND INTACT. CHANGED DIAPER X10 W/ X1 BM. COMFORT/SAFETY MEASURES ENSURED AND WILL CONTINUE TO MONITOR FOR ANY CHANGES. WILL ENDORSE CARE TO AM NURSE.
--- NOTE | 2016-09-16 07:45 | NUR ---
MS/RN - Initial Notes Pt received in bed, alert and oriented x4. No acute distress. Respirations are even and unlabored. Denies pain or discomfort. Left breast dressing intact. Sacrum dressing intact. Pt noted with bowel movement, cleaned and repositioned. Left pleurX drain intact, no output noted at this time. Right pleurX clamped as ordered. PICC line on right upper arm patent and intact. Safety and comfort measures in place. Will continue to monitor pt closely.
[2016-09-16 08:00] VITALS: BP_SYST 138; BP_SYST 150; BP_DIAS 58; BP_DIAS 98
[2016-09-16] MEDS: PANTOPRAZOLE 40 MG TABLET.DR PO SCH (08:37)
[2016-09-16] MEDS: BOOST PLUS FOOD-CHOCLATE 237 ML BOX PO SCH ×3 (08:37→16:36)
[2016-09-16] MEDS: ANASTROZOLE 1 MG TABLET PO SCH (08:37)
[2016-09-16] MEDS: ACIDOPHILUS/BULGARICUS 1 EACH TAB.CHEW PO SCH ×3 (08:37→16:35)
[2016-09-16] MEDS: methylPREDNISolone SOD SUCC 40 MG/ML VIAL IV SCH ×3 (08:37→16:36)
[2016-09-16] MEDS: FERROUS SULFATE (325 MG) 325 MG/TAB TABLET PO SCH ×2 (08:37→16:35)
[2016-09-16] MEDS: ASCORBIC ACID 500 MG TABLET PO SCH (08:37)
[2016-09-16] MEDS: HYDROGEL DRESSING 90 GM TUBE TP SCH (08:38)
[2016-09-16] MEDS: Z GUARD REMEDY 2 OZ OINT TP PRN (08:38)
[2016-09-16] MEDS: PROSOURCE / PROSTAT (PYXIS) 30 ML UDC PO SCH ×3 (08:38→16:36)
[2016-09-16] MEDS ORDERED: IV NS 0.9% 250 ML IV PRN (09:00)
[2016-09-16] MEDS ORDERED: ASCO500C16 PO (14:54)
[2016-09-16] MEDS ORDERED: ZINC220C6 PO (14:54)
[2016-09-16] MEDS ORDERED: PRED20TA PO (14:54)
[2016-09-16 16:00] VITALS: BP 144/82
[2016-09-16] MEDS ORDERED: FERROUS SULFATE (325 MG) 325 MG/TAB TABLET ONE (16:31)
[2016-09-16] MEDS ORDERED: ACIDOPHILUS/BULGARICUS 1 EACH TAB.CHEW ONE (16:31)
[2016-09-16] MEDS ORDERED: methylPREDNISolone SOD SUCC 40 MG/ML VIAL ONE (16:31)
--- NOTE | 2016-09-16 19:30 | NUR ---
RN INITIAL NOTE RECEIVED PATIENT IN BED IN NO ACUTE DISTRESS. A/O X4 AND ABLE TO MAKE NEEDS KNOWN. BREATHING EVEN AND NONLABORED WHILE ON 02 VIA NASAL CANNULA WITH 02 SATURATION AT 98%. RIGHT PLEURX CLAMPED, DRESSING C/D/I CLEAN, LEFT PLEURX LEFT OPEN TO DRAIN WITH NO DRAINAGE NOTED, DRESSING C/D/I. WOUND DRESSINGS C/D/I. RENO PICC LINE CLEAN DRY AND PATENT. PT IS COMFORTABLE AND CLEAN IN BED. COMFORT/SAFETY MEASURES ENSURED. WILL CONTINUE TO MONITOR FOR ANY CHANGES DURING SHIFT. PATIENT TO BE PICKED UP BY [facility] BY 1999 TO BE DC'D HOME WITH HOME HEALTH.
[2016-09-16 20:00] VITALS: BP_SYST 136; BP_DIAS 89; BP_DIAS 93
--- NOTE | 2016-09-16 21:00 | NUR ---
RN NOTES [facility] STAFF (2 MECHANIC) AT BEDSIDE. PER AMBULANCE STAFF, THEY ARE UNABLE TO TAKE THE PATIENT AT THIS TIME DUE TO AMBULANCE POLICY--PATIENTS WITH CHEST TUBES MUST BE ACCOMPANIED BY A CRITICAL CARE NURSE DURING TRANSPORT. CHARGE NURSE CALEB MADE AWARE, FRAMING MACHINE TENDER YE MADE AWARE. EXPLAINED TO THE PATIENT THAT THE EMT STAFF ARE UNABLE TO TRANSPORT HER HOME AT THIS TIME. PATIENT VERBALIZES UNDERSTANDING, BUT ALSO VERBALIZES EXTREME DISSATISFACTION REGARDING THE DISCHARGE PLANNING AND TIMING. ATTEMPTED TO CONSOLE THE PATIENT AND PROVIDED CARE FOR ANY OTHER NEEDS.
--- NOTE | 2016-09-16 21:15 | NUR ---
RN NOTES PATIENT CALLED CALENDAR CONTROL CLERK BLOOD BANK ALEENA VIA PRIVATE PHONE TO VERBALIZE DISSATISFACTION WITH D/C PLANNING, AND TO FOLLOW UP REGARDING OTHER OPTIONS FOR TRANSPORT. AWAITING CALL BACK FROM ALEENA FOR ANY UPDATES.
--- NOTE | 2016-09-16 21:30 | NUR ---
RN NOTES CALLED [facility], SPOKE TO ANGEL. PER ANGEL, CRITICAL CARE NURSE WILL BE AVAILABLE TO TRANSPORT THE PATIENT TOMORROW 09/27/26 @ [id number]. 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 PATIENT VERBALIZES UNDERSTANDING, BUT STILL ALSO VERBALIZES DISSATISFACTION. WILL ATTEMPT TO CONTACT ADDITIONAL TRANSPORT COMPANIES TO EXPEDITE TRANSPORTATION FROM HOSPITAL TO PATIENT'S HOME
--- NOTE | 2016-09-16 22:30 | NUR ---
RN NOTES RECEIVED CALL BACK FROM YAYA WITH [facility]. UNFORTUNATELY, NO CRITICAL CARE NURSE AVAILABLE TO TRANSPORT PATIENT AT THIS TIME. AWAITING CALL BACK FROM OTHER AMBULANCE COMPANIES. PATIENT KEPT UPDATED REGARDING TRANSPORT STATUS
--- NOTE | 2016-09-17 03:00 | NUR ---
RN NOTES CALLED [facility], SPOKE TO CORBY TO CONFIRM TRANSPORT OFFBEARER @0900 WITH CRITICAL CARE NURSE.
[2016-09-17 04:00] VITALS: BP 143/93
--- NOTE | 2016-09-17 07:00 | NUR ---
RN CLOSING NOTES PATIENT IN BED, AWAKE, AWARE OF PICKUP SCHEDULED FOR 0900 WITH [facility]. ALL PAPERWORK WITH PATIENT. PATIENT ENDORSED TO THE AM SHIFT NURSE FOR CLARENCE, TO FOLLOW UP WITH CM. NO CALLS RECEIVED FROM OTHER AMBULANCE COMPANIES REGARDING TRANSPORT TIMES.
[2016-09-17] MEDS: PANTOPRAZOLE 40 MG TABLET.DR PO SCH (07:30)
[2016-09-17] MEDS: BOOST PLUS FOOD-CHOCLATE 237 ML BOX PO SCH (08:00)
--- NOTE | 2016-09-17 08:03 | NUR ---
RN INITIAL NOTE RECEIVED PATIENT IN BED IN NO ACUTE DISTRESS AWAKE . A/O X4 AND ABLE TO MAKE NEEDS KNOWN. ON VIA NASAL CANNULA WITH 02 SATURATION AT 98% NO SOB NOTED. RIGHT PLEURX CLAMPED, DRESSING C/D/I LEFT PLEURX LEFT OPEN TO DRAIN WITH NO DRAINAGE NOTED, DRESSING C/D/I. WOUND DRESSINGS C/D/I. RENO PICC LINE CLEAN DRY AND PATENT. PT IS COMFORTABLE AND CLEAN IN BED. COMFORT/SAFETY MEASURES ENSURED. NURSING STAFF WILL CONTINUE TO MONITOR FOR ANY CHANGES. PATIENT HAS DISCHARGE ORDER FROM 09/16/16 PT HAS SCHEDULED [facility] BY [email or web address] WITH CRITICAL CARE NURSE AT 0900A PER PM NURSE. PT WILL BE DC'D HOME WITH HOME HEALTH. PT AWARE AND CHARGE NURSE SAME AWARE
[2016-09-17] MEDS: ASCORBIC ACID 500 MG TABLET PO SCH (09:00)
[2016-09-17] MEDS: PROSOURCE / PROSTAT (PYXIS) 30 ML UDC PO SCH (09:00)
[2016-09-17] MEDS: ACIDOPHILUS/BULGARICUS 1 EACH TAB.CHEW PO SCH (09:00)
[2016-09-17] MEDS: FERROUS SULFATE (325 MG) 325 MG/TAB TABLET PO SCH (09:00)
[2016-09-17] MEDS: HYDROGEL DRESSING 90 GM TUBE TP SCH (09:00)
[2016-09-17] MEDS: ANASTROZOLE 1 MG TABLET PO SCH (09:00)
--- NOTE | 2016-09-17 09:09 | NUR ---
RN NOTE EMS ARRIVED TO EDGE BANDING MACHINE OFFBEARER PATIENT , REPORT GIVEN TO EMS . DISCHARGE PICTURES TAKEN LAST NIGHT . PATIENT BELONGING TAKEN WITH LAST NIGHT. PATIENT WALKER TAKEN BY EMS. AND DISCHARGE PAPER WORK GIVEN TO THE PATIENT. PATIENT CONDITION STABLE AT THIS TIME . PT SPOKE WITH WHILE NURSE PRESENT TO INFORM HIM THAT SHE WOULD BE [facility]ING [facility] ACKNOWLEDGED PATIENT DRESSINGS CHANGED AND DIAPER RN WILL CONTINUE TO FOLLOW .
--- NOTE | 2016-09-17 09:17 | NUR ---
NO AM MEDICATION ADMINISTRATION DUE TO PATIENT DISCHARGE PATIENT STATES SHE IS JUST READY TO GET OUT OF HERE AND HOME. RN WILL ENDORSE TO EMS
--- NOTE | 2016-09-17 09:22 | NUR ---
RN NOTE PATIENT HAS LEFT WITH EMS
== END 2016-09-17 10:56 | disposition home health service (06) | DRG 720 ==
LOC: ER 23:21 → TELE-TD 08-08 00:45 → ICU 08-08 01:51 → ICUOV 08-14 18:21 → TELE-TD 08-15 14:34 → TELE1 08-16 10:01 → MEDSG1 08-28 12:52
PROVIDERS: ADMIT Family Medicine; ATTEND Family Medicine
PROC: 5A1955Z Respiratory Ventilation, Greater than 96 Consecutive Hours (ICD-10-PCS; principal; 2016-08-08)
PROC: 02HV33Z Insertion of Infusion Device into Superior Vena Cava, Percutaneous Approach (ICD-10-PCS; principal; 2016-08-08)
PROC: 0BH17EZ Insertion of Endotracheal Airway into Trachea, Via Natural or Artificial Opening (ICD-10-PCS; principal; 2016-08-08)
PROC: 0BJ08ZZ Inspection of Tracheobronchial Tree, Via Natural or Artificial Opening Endoscopic (ICD-10-PCS; 2016-08-11)
PROC: 0W9930Z Drainage of Right Pleural Cavity with Drainage Device, Percutaneous Approach (ICD-10-PCS; 2016-08-13)
PROC: 0W9900Z Drainage of Right Pleural Cavity with Drainage Device, Open Approach (ICD-10-PCS; 2016-08-14)
PROC: 0W9900Z Drainage of Right Pleural Cavity with Drainage Device, Open Approach (ICD-10-PCS; 2016-08-20)
DX: A41.9 Sepsis, unspecified organism (principal); J96.21 Acute and chronic respiratory failure with hypoxia; R65.21 Severe sepsis with septic shock; G92 Toxic encephalopathy; E43 Unspecified severe protein-calorie malnutrition; J18.9 Pneumonia, unspecified organism; J15.9 Unspecified bacterial pneumonia; J91.0 Malignant pleural effusion; L89.153 Pressure ulcer of sacral region, stage 3; A04.7 Enterocolitis due to Clostridium difficile; C78.00 Secondary malignant neoplasm of unspecified lung; C50.919 Malignant neoplasm of unspecified site of unspecified female breast; C78.7 Secondary malignant neoplasm of liver and intrahepatic bile duct; C79.51 Secondary malignant neoplasm of bone; Z88.1 Allergy status to other antibiotic agents; D64.9 Anemia, unspecified; E83.51 Hypocalcemia; E86.1 Hypovolemia; E87.6 Hypokalemia; I50.9 Heart failure, unspecified; J98.11 Atelectasis; R62.7 Adult failure to thrive; Z87.01 Personal history of pneumonia (recurrent); Z92.21 Personal history of antineoplastic chemotherapy; J96.22 Acute and chronic respiratory failure with hypercapnia; J93.9 Pneumothorax, unspecified; L03.313 Cellulitis of chest wall; Z22.322 Carrier or suspected carrier of Methicillin resistant Staphylococcus aureus; I70.0 Atherosclerosis of aorta; J93.82 Other air leak; R74.0 Nonspecific elevation of levels of transaminase and lactic acid dehydrogenase [LDH]
CPT/HCPCS: 31623; 31720; 36415; 36600; 71010-TC; 71250-TC; 80048-TC; 80053-TC; 80076-TC; 80202-TC; 81000-TC; 82728-TC; 82746; 82784; 82803-TC; 82962-TC; 83540-TC; 83605-TC; 83615-TC; 83735-TC; 83880; 84100-TC; 84155; 84155-TC; 84165; 84439-TC; 84443-TC; 84484-TC; 85025-TC; 85396; 85610-TC; 85730-TC; 86300; 86334; 87040-TC; 87070-TC; 87075-TC; 87081-TC; 87086-TC; 87186-TC; 88305-TC; 88312-TC; 89051-TC; 93307-TC; 94002-TC; 94003-TC; 94762-TC; 94799-TC; 97001-TC; 97110-TC; 97112-TC; 97116-TC; 97530-TC; 99082-TC; A4216; A4217; A4606; A6248; A6253; A6402; A6403; C9113; J1650; J1815; J1956; J2060; J2270; J2543; J2704; J2916; J2920; J3370; J3480; J3490; J7030; J7040; J7050; J7060; Q9967; Z7610